=== PATIENT | male | born 1945 | race Caucasian/White ===

== ENCOUNTER 2023-06-27 23:30 | Inpatient (IN) | payer BC, SELFPAY ==
[2023-06-27 17:16] VITALS: BP 116/73
[2023-06-27] MEDS: TYLENOL 1000 MG PO (17:23)
[2023-06-27 17:39] LABS: % Basophils 0.6 % (0-2); % Immature Granulocytes 0.2 % (0-0.5); % Lymphocytes 9.5 % (20.5-51.1); % Neutrophils 77.7 % (42.2-75.2); Absolute Basophils 0.1 10^3/uL (0-0.2); Absolute Lymphocytes 0.8 10^3/uL (1.2-3.4); Absolute Monocytes 1.1 10^3/uL (0.1-0.6); Absolute Neutrophils 6.8 10^3/uL (1.4-6.5); Hematocrit 36.4 % (39.0-52.0); Hemoglobin 12.7 g/dL (13.0-18.0); Mean Corp Hgb Conc. 34.9 g/dL (33.0-37.0); Mean Corpuscular Hgb 32.3 pg (27.0-31.0); Mean Corpuscular Volume 92.6 fL (80.0-94.0); Mean Platelet Volume 9.7 fL (7.4-10.4); Nucleated Red Blood Cells % 0 % (-); Platelet Count 410 10^3/uL (130-400); Red Blood Cell Count 3.93 10^6/uL (4.70-6.10); Red Cell Dist. Width 11.7 % (11.5-14.5); White Blood Cell Count 8.8 10^3/uL (4.8-10.8)
[2023-06-27 17:50] LABS: Lactic Acid 0.8 mmol/L (0.7-2.0)
[2023-06-27 17:51] LABS: ALT (SGPT) 46 U/L (0-50); AST (SGOT) 32 U/L (17-59); Albumin 3.9 g/dl (3.5-5.0); Alkaline Phosphatase 179 U/L (38-126); Blood Urea Nitrogen 24 mg/dl (9-20); Calcium 8.9 mg/dl (8.4-10.2); Carbon Dioxide 28 mmol/L (22-30); Chloride 94 mmol/L (98-107); Glucose 113 mg/dl (70-99); Potassium 4.7 mmol/L (3.5-5.1); Sodium 129 mmol/L (135-145); Total Bilirubin 1.3 mg/dl (0.2-1.3); Total Protein 6.9 g/dl (6.3-8.2); eGFR > 60.00
[2023-06-27 17:52] LABS: COVID-19 Antigen Negative (Negative)
--- NOTE | 2023-06-27 18:46 | ED.GENMED ---
History of Present Illness
<Wendy Solano GEOPHYSICAL DRAFTER - Last Filed: 06/27/23 23:29>
General
Chief Complaint: Change in Mental Status
Source: patient
Exam Limitations: none
Time Seen by Provider: 06/27/23 18:45
Nursing documentation reviewed up to this point in time: agreed with
Travel History
Have you had any contact with someone who has COVID-19?: No
Do you have any symptoms of coronavirus? Fever > 100 degrees, chills, cough, shortness of breath, sore throat, loss of taste or smell, muscle aches, or headache?: No
History of Present Illness
History of Present Illness:
77 yo male evaluated here 06/13, 06/14 admitted 06/16-06/19 all for left side abdominal pain. Dx with enteritis, ileus from Influenza A and PNA. States the left side pain never went away and is getting worse. Febrile, decreased appetite, lost 8 lbs in
past 3 weeks, had a loose stool this a.m.
[place] in [place] yesterday, today went to work but couldn't stay due to pain. Saw PCP Dr. Gatica who sent him here for evaluation.
Past History
<Wendy Solano GEOPHYSICAL DRAFTER - Last Filed: 06/27/23 23:29>
Past History
ED Past Medical History: Other (Nursing Notes document diverticulosis and arthritis, the patient denies ever having diverticulosis. He states that he had a colonoscopy within the past few months which was normal.)
ED Past Surgical History: Orthopedic and Other (Intestinal resection for perforation. Colon resection with peritonitis 1997. Bowel Obstruction 09/2015)
Social History
Tobacco: Non-smoker
Alcohol: Occasional
Drug: None
Personal:
Living: with family
Employment: Retired
Family History
Family History: Other (Noncontributory)
Review of Systems
<Wendy Solano, GEOPHYSICAL DRAFTER - Last Filed: 06/27/23 23:29>
Review of Systems
Allergies reviewed?: Yes
All Other Systems: ROS reviewed and negative except as documented in HPI and ROS
Constitutional: Reports fever
Respiratory: Denies trouble breathing
Cardiac: Denies chest pain
ABD/GI: Reports abdominal pain and anorexia; Denies nausea, vomiting, diarrhea, constipated, bloody stools or black stools
: Denies dysuria, difficulty voiding or urgency
Musculoskeletal: Denies edema or back pain
Skin: Reports no symptoms
Neurological: Reports no symptoms
Phy Exam
<Wendy Solano, GEOPHYSICAL DRAFTER - Last Filed: 06/27/23 23:29>
Physical Exam
Physical Exam:
GENERAL: No acute distress. A&Ox3.
CONSTITUTIONAL: Temp 103.1
EYES: clear, conjunctivae normal
Neck: Supple
ENMT: moist mucus membranes, Pharynx nl
RESPIRATORY: Regular respirations, nonlabored, lungs clear.
CARDIOVASCULAR: Regular rate and rhythm, no murmurs, no rubs.
GI: Soft, tender left side abdomen, firm area to the left of umbilicus, normal BS
MUSCULOSKELETAL: Moves with ease. Well perfused. No edema
SKIN: Warm, dry, pink
PSYCH: Normal mood and affect. Well kept, interactive and appropriate
NEUROLOGIC: Awake, alert and oriented. No focal neurological deficits
Course
<Wendy Solano, GEOPHYSICAL DRAFTER - Last Filed: 06/27/23 23:29>
Orders/Labs/Results
Orders:
Orders
06/27/23 17:19
CR Chest - 2 Views Urgent
Comment:
Reason For Exam: fever
06/27/23 17:21
Acetaminophen [Tylenol] 1,000 mg PO NOW STA
06/27/23 17:28
COVID-19 Antigen Urgent
Source: Nasal Swab
Complete Blood Count/With Diff Urgent
Comprehensive Metabolic Panel Urgent
Lactic Acid Urgent
Blood Culture Urgent
KASEY Source: Blood/Venous
Specimen Description:
06/27/23 19:22
Iohexol [Omnipaque] See Protocol PO NOW STA
06/27/23 19:23
CT Abd/pel W Iv And Oral Contr Urgent
Comment:
Reason For Exam: persistent LLQ pain, fever
06/27/23 20:27
Urinalysis Reflex To Culture Urgent
Date Specimen was Collected: 06/27/23
Time Specimen was Collected: 20:18
Urine Microscopic Reflex Cult Urgent
Blood Culture Urgent
KASEY Source: Blood/Venous
Specimen Description:
Date Specimen was Collected: 06/27/23
Time Specimen was Collected: 20:18
Urine Culture Urgent
KASEY Source: U
Specimen Description:
Date Specimen was Collected: 06/27/23
Time Specimen was Collected: 20:18
06/27/23 21:25
STOOL [C difficile Antigen & Toxins] Urgent
KASEY Source: Feces/Stool
Specimen Description:
Stool Culture Urgent
KASEY Source: Feces/Stool
Specimen Description:
06/27/23 22:22
Piperacillin/Tazo 3.375 Gram [Zosyn] 3.375 gram in 50 ml IV NOW
06/27/23 22:25
IRAD CONSULT Urgent
Consulting Provider: Candelario Tubbs
Was physician already notified: Yes
Reason for consult: abscess drain
SURGICAL CONSULT Urgent
Consulting Provider: Mike Tyson
Was physician already notified: Yes
06/27/23 22:34
Calcium Carbonate Chewable [Tums] 1 tablet PO NOW STA
06/27/23 23:04
Admit/Transfer Patient As Directed
Co-Sign Provider:
Level of Care: Inpatient admission
Assign to:: Medical/Surgical
Physician / Group: leticia
Diagnosis: intrabdominal abscess
Reason for Hospitalization: intrabdominal abscess
Expected length of stay greater than two midnights?: Yes
ELOS- Estimated Length of Stay in days: 2
I certify the patient meets the requirements for IP care: Yes
06/27/23 23:05
Code Status As Directed
Resuscitation Status: Do not resuscitate
Reached after discussion with pt or family/Healthcare POA: Yes
DNR Bracelet Application ONCE
06/27/23 23:06
Pantoprazole [Protonix] 40 mg PO DAILY
06/27/23 23:07
0.9% Sodium Chloride 1000 ml [Nss] 1,000 ml IV BOLUS
06/27/23 23:09
HYDROmorphone [Dilaudid] 0.5 mg IV Q4HPRN PRN
06/27/23 23:10
Ondansetron Injectable [Zofran] 4 mg IV Q6HPRN PRN
06/27/23 23:14
Ondansetron Injectable [Zofran] 4 mg .ROUTE .STK-MED ONE
06/27/23 23:15
0.9% Sodium Chloride 1000 ml [Nss] 1,000 ml IV 100 mls/hr
Abnormal Lab Results
06/27/23 06/27/23
17:28 20:27
RBC 3.93 L 10^6/uL
(4.70-6.10)
Hgb 12.7 L g/dL
(13.0-18.0)
Hct 36.4 L %
(39.0-52.0)
MCH 32.3 H pg
(27.0-31.0)
Plt Count 410 H 10^3/uL
(130-400)
Absolute Neuts (auto) 6.8 H 10^3/uL
(1.4-6.5)
Absolute Lymphs (auto) 0.8 L 10^3/uL
(1.2-3.4)
Absolute Monos (auto) 1.1 H 10^3/uL
(0.1-0.6)
Neutrophils % 77.7 H %
(42.2-75.2)
Lymphocytes % 9.5 L %
(20.5-51.1)
Monocytes % 12.0 H %
(1.7-9.3)
Sodium 129 L mmol/L
(135-145)
Chloride 94 L mmol/L
(98-107)
BUN 24 H mg/dl
(9-20)
Glucose 113 H mg/dl
(70-99)
Alkaline Phosphatase 179 H U/L
(38-126)
Urine Ketones 2+ A
(Negative)
Leukocyte Esterase Rfl Trace A
(Negative)
Urine Bacteria (Reflex) Moderate A
(Negative)
Urine Albumin (Reflex) 1+ A
(Neg - Trace)
06/27/23 17:28
06/27/23 17:28
Vital Signs
Initial and Last Documented VS:
Initial Vital Signs
Temp Pulse Resp BP Pulse Ox
103.1 F H 102 20 116/73 95
06/27/23 17:16 06/27/23 17:16 06/27/23 17:16 06/27/23 17:16 06/27/23 17:16
Last Documented Vital Signs
Temp Pulse Resp BP Pulse Ox
98.7 F 83 27 115/52 93
06/27/23 22:27 06/27/23 19:15 06/27/23 19:15 06/27/23 19:05 06/27/23 19:05
Auto Body Repair Teacher consulted with Physician
Auto Body Repair Teacher consulted with physician?: Yes
Name of Physician Consulted: Teodoro
<Jasiel Valerio MD - Last Filed: 06/27/23 21:33>
Orders/Labs/Results
Orders:
Orders
06/27/23 17:19
CR Chest - 2 Views Urgent
Comment:
Reason For Exam: fever
06/27/23 17:21
Acetaminophen [Tylenol] 1,000 mg PO NOW STA
06/27/23 17:28
COVID-19 Antigen Urgent
Source: Nasal Swab
Complete Blood Count/With Diff Urgent
Comprehensive Metabolic Panel Urgent
Lactic Acid Urgent
Blood Culture Urgent
KASEY Source: Blood/Venous
Specimen Description:
06/27/23 19:22
Iohexol [Omnipaque] See Protocol PO NOW STA
06/27/23 19:23
CT Abd/pel W Iv And Oral Contr Urgent
Comment:
Reason For Exam: persistent LLQ pain, fever
06/27/23 20:27
Urinalysis Reflex To Culture Urgent
Date Specimen was Collected: 06/27/23
Time Specimen was Collected: 20:18
Urine Microscopic Reflex Cult Urgent
Blood Culture Urgent
KASEY Source: Blood/Venous
Specimen Description:
Date Specimen was Collected: 06/27/23
Time Specimen was Collected: 20:18
Urine Culture Urgent
KASEY Source: U
Specimen Description:
Date Specimen was Collected: 06/27/23
Time Specimen was Collected: 20:18
06/27/23 21:25
STOOL [C difficile Antigen & Toxins] Urgent
KASEY Source: Feces/Stool
Specimen Description:
Stool Culture Urgent
KASEY Source: Feces/Stool
Specimen Description:
06/27/23 22:22
Piperacillin/Tazo 3.375 Gram [Zosyn] 3.375 gram in 50 ml IV NOW
06/27/23 22:25
IRAD CONSULT Urgent
Consulting Provider: Candelario Tubbs
Was physician already notified: Yes
Reason for consult: abscess drain
SURGICAL CONSULT Urgent
Consulting Provider: Mike Tyson
Was physician already notified: Yes
06/27/23 22:34
Calcium Carbonate Chewable [Tums] 1 tablet PO NOW STA
06/27/23 23:04
Admit/Transfer Patient As Directed
Co-Sign Provider:
Level of Care: Inpatient admission
Assign to:: Medical/Surgical
Physician / Group: leticia
Diagnosis: intrabdominal abscess
Reason for Hospitalization: intrabdominal abscess
Expected length of stay greater than two midnights?: Yes
ELOS- Estimated Length of Stay in days: 2
I certify the patient meets the requirements for IP care: Yes
06/27/23 23:05
Code Status As Directed
Resuscitation Status: Do not resuscitate
Reached after discussion with pt or family/Healthcare POA: Yes
DNR Bracelet Application ONCE
06/27/23 23:06
Pantoprazole [Protonix] 40 mg PO DAILY
06/27/23 23:07
0.9% Sodium Chloride 1000 ml [Nss] 1,000 ml IV BOLUS
06/27/23 23:09
HYDROmorphone [Dilaudid] 0.5 mg IV Q4HPRN PRN
06/27/23 23:10
Ondansetron Injectable [Zofran] 4 mg IV Q6HPRN PRN
06/27/23 23:14
Ondansetron Injectable [Zofran] 4 mg .ROUTE .STK-MED ONE
06/27/23 23:15
0.9% Sodium Chloride 1000 ml [Nss] 1,000 ml IV 100 mls/hr
Abnormal Lab Results
06/27/23 06/27/23
17:28 20:27
RBC 3.93 L 10^6/uL
(4.70-6.10)
Hgb 12.7 L g/dL
(13.0-18.0)
Hct 36.4 L %
(39.0-52.0)
MCH 32.3 H pg
(27.0-31.0)
Plt Count 410 H 10^3/uL
(130-400)
Absolute Neuts (auto) 6.8 H 10^3/uL
(1.4-6.5)
Absolute Lymphs (auto) 0.8 L 10^3/uL
(1.2-3.4)
Absolute Monos (auto) 1.1 H 10^3/uL
(0.1-0.6)
Neutrophils % 77.7 H %
(42.2-75.2)
Lymphocytes % 9.5 L %
(20.5-51.1)
Monocytes % 12.0 H %
(1.7-9.3)
Sodium 129 L mmol/L
(135-145)
Chloride 94 L mmol/L
(98-107)
BUN 24 H mg/dl
(9-20)
Glucose 113 H mg/dl
(70-99)
Alkaline Phosphatase 179 H U/L
(38-126)
Urine Ketones 2+ A
(Negative)
Leukocyte Esterase Rfl Trace A
(Negative)
Urine Bacteria (Reflex) Moderate A
(Negative)
Urine Albumin (Reflex) 1+ A
(Neg - Trace)
06/27/23 17:28
06/27/23 17:28
Vital Signs
Initial and Last Documented VS:
Initial Vital Signs
Temp Pulse Resp BP Pulse Ox
103.1 F H 102 20 116/73 95
06/27/23 17:16 06/27/23 17:16 06/27/23 17:16 06/27/23 17:16 06/27/23 17:16
Last Documented Vital Signs
Temp Pulse Resp BP Pulse Ox
98.7 F 83 27 115/52 93
06/27/23 22:27 06/27/23 19:15 06/27/23 19:15 06/27/23 19:05 06/27/23 19:05
<Wendy Solano GEOPHYSICAL DRAFTER - Last Filed: 06/27/23 23:29>
MDM/Problems Addressed
Differential Diagnosis Includes:
mass, infectious colitis/enteritis
MDM/Problems Addressed:
77 yo male evaluated here 06/13, 06/14 admitted 06/16-06/19 all for left side abdominal pain. Dx with enteritis, ileus from Influenza A and PNA. States the left side pain never went away and is getting worse. Febrile, decreased appetite, lost 8 lbs in
past 3 weeks, had a loose stool this a.m.
Was in [place] yesterday, today went to work but couldn't stay due to pain. Saw PCP Dr. Gatica who sent him here for evaluation.
Temp 103.1 on arrival.
Pleasant, NAD
06/27/2023 1959 PM
CBC with no clinically significant abnormality
CMP: Sodium 129, chloride 94, BUN 24, mild elevated alk phos
Lactic within normal limit
06/27/[address] abdomen pelvis radiology report reviewed: IMPRESSION:
Complex rim enhancing collection containing fluid and gas in the anterior mid abdomen concerning for an intra-abdominal abscess. The exact etiology is uncertain, potentially secondary to an infectious/inflammatory enteritis or small contained
perforation. However, no enteric contrast material within the collection, and no free air elsewhere in the abdomen.
Dr. Valerio in to evaluate pt, arranged for IR and pt to be admitted
<Wendy Solano GEOPHYSICAL DRAFTER - Last Filed: 06/27/23 23:29>
*Critical Care Note
Total Time (30-74mins, 75-104mins- exclusive of procedures): Not Applicable
ED Attending Note
<Wendy Solano NP - Last Filed: 06/27/23 23:29>
-
Portions of this chart may have been created with voice recognition software.� Occasional wrong word or��sound alike� substitutions may have occurred due to the inherent limitations of voice recognition software.
<Jasiel Valerio MD - Last Filed: 06/27/23 21:33>
ED Attending Note
Patient seen and examined by attending physician: Yes
ED Attending Note:
I have seen and evaluated the patient with a [id number] encounter. I have spoken to the advance practicer provider and involved in the medical history, the physical exam, medical decision making.
Evaluation and management service: agree unless noted differently below.
Results interpretation: agree unless noted differently below.
Focused HPI: 77-year-old male with history as documented presents to the emergency room accompanied by his for evaluation of abdominal pain. This is the patient's fourth visit to the emergency room this month�initially presented with abdominal
pain and found to have influenza. CT on initial presentation showed findings consistent with an enteritis. Discharged home and returned next day with abdominal pain once again. CT was unchanged he was discharged. Returned 2 days later with
persistent pain also with continued cough and congestion. He was ultimately found to have pneumonia and was admitted for treatment of pneumonia. He had surgical consultation regarding his enteritis there was a question of potentially an early
bowel obstruction although no clear transition point on CT with contrast. Surgery felt pain related to enteritis or ileus from influenza. He was treated with Zosyn for his pneumonia he was ultimately discharged home. He returns today with
continued abdominal pain in the left lower quadrant. He said he had some diarrhea earlier today. No nausea or vomiting. He has a fever 103 �F today. No urinary symptoms. Cough and shortness of breath improved.
Physical exam: Awake and alert. Not in distress. Abdomen soft, moderately tender across the lower abdomen much worse on the left side with some voluntary guarding on the left. Normal active bowel sounds. Scar from prior abdominal surgery. His
lungs are clear to auscultation bilaterally. He has a regular rate and rhythm on cardiac auscultation with no rubs gallops or murmurs appreciated.
Medical Decision Making: Patient presents for the fourth time with complaint of abdominal pain. Pain has been persistent now for 2 weeks. Had some associated diarrhea today. Notably febrile here to 103 �F. Mildly tachycardic. Exam as above.
Labs sent off including a CBC which shows no leukocytosis. CMP shows mild hyponatremia but normal creatinine. Lactate is normal. His urinalysis equivocal fraction�he does have moderate bacteria but no pyuria, some squamous cells consistent with
some degree of contamination and with no urinary symptoms somewhat doubt this is the source of his fever and abdominal discomfort. Repeat CT abdomen pelvis with p.o. and IV contrast pending. Anticipate patient.
Discharge Plan
Departure
Patient Disposition: Admit
Date of Disposition: 06/27/23
Time of Disposition: 22:27
Admit to doctor: Johnson
Presentation/result/management discussed w/ accepting MD/DO: Hospitalist
Discharge Problem:
Intra-abdominal abscess
Prescriptions:
No Action
Flax Seed 1,200 MG Tab
1,200 mg PO DAILY
PreserVision AREDS 1 CAP capsule
1 cap PO BID
elderberry fruit and flower 1 EACH capsule
1 cap PO DAILY
atorvastatin 20 mg Tablet
20 mg PO DAILY
gabapentin 300 mg Capsule
300 mg PO TID
diphenhydramine-acetaminophen [Tylenol PM Extra Strength] 25-500 mg Tablet
2 tab PO DAILYPRN PRN (Reason: mild pain)
cholecalciferol (vitamin D3) 25 mcg (1,000 unit) Tablet
25 mcg PO DAILY
omega 6-odo-fde-fish oil [Fish Oil] 1,000 mg (120 mg-180 mg) Capsule
1 cap PO BID
ZzzQuil 50 mg/30 mL Liquid
50 mg PO HS
hydrocodone-acetaminophen 5-325 mg tablet
1 tab PO Q6H PRN (Reason: severe pain)
Patient Comments:
06/16/2023, pt. filled this medication on 06/15/2023 for 10 tablets according to PDMP.
benzonatate 100 mg Capsule
200 mg PO TIDPRN PRN (Reason: cough) Qty: 20 0RF
guaifenesin 600 mg tablet extended release 12hr
1,200 mg PO [id number] PRN (Reason: cough)
Referrals:
Reginald Gatica PA-C [Family Provider] -
Interventions
Interventions:
*Risk Screen - Suicide Last Done: 06/27/23 17:16
*General Assessment Last Done: 06/27/23 17:16
*Neglect/Abuse Screening Last Done: 06/27/23 17:16
ED- Neurological Assessment Last Done: 06/27/23 19:21
ED Swallowing Screen Last Done: 06/27/23 22:27
[2023-06-27 19:05] VITALS: BP 115/52
[2023-06-27] MEDS: OMNIPAQUE 50 ML PO (19:40)
[2023-06-27 20:00] VITALS: BP 119/62
[2023-06-27 20:34] LABS: Urine Albumin 1+ (Neg - Trace); Urine Bilirubin Negative (Negative); Urine Character Clear (Clear); Urine Color Yellow; Urine Glucose Negative (Negative); Urine Ketone 2+ (Negative); Urine Leukocyte Trace (Negative); Urine Nitrite Negative (Negative); Urine Occult Blood Negative (Negative); Urine Specific Gravity 1.015 (<1.030); Urine Urobilinogen 1+ (Neg - 1+)
[2023-06-27 20:46] LABS: Urine Bacteria Moderate (Negative); Urine Mucus Few; Urine Red Blood Cell 0-2 /HPF (0-2); Urine White Cell 0-2 /HPF (0-5)
[2023-06-27 21:00] VITALS: BP 128/62
[2023-06-27 22:04] VITALS: BP 144/71
--- NOTE | 2023-06-27 23:10 | HPS.HSE ---
Addendum entered and electronically signed by Laci Mann MD 06/27/23 23:15:
Patient had a prior history of bowel perforation status post bowel resection, with repeat surgery secondary to adhesions 2017.
Original Note:
Family Physician
-
Family Physician: Reginald Gatica PA-C
Chief Complaint
-
abdominal pain
History of Present Illness
77-year-old male past medical history of colon resection, hyperlipidemia, recent influenza, hyponatremia, presenting with worsening left-sided abdominal pain. He was recently admitted from 06/16 to 06/19 for left abdominal pain and was diagnosed with
enteritis/ileus secondary to influenza A. He was treated with Zosyn and followed by general surgery recommended conservative management. He was treated with Tamiflu for influenza.
Since discharge his left-sided abdominal pain has gotten worse. He has fevers and chills. Denies nausea or vomiting. He had 2 episodes of loose stools in the past day.
Patient drinks at least 1 glass of wine every night but he has not had any alcohol in 2 weeks. Denies smoking.
Medical History
Past Medical History
Past Medical History: Reports Other (colon resection, hyperlipidemia, recent influenza, hyponatremia)
Past Surgical History: Reports None
Social History
Tobacco: Non-smoker
Alcohol: Daily
Drug: None
Family History
Family History: Not pertinent
Allergies / Home Medications
Allergies reflects when Allergies were last updated in [employer].
Home Medications with original date entered in [employer]
Allergy/Medication List:
Allergies
Allergy/AdvReac Type Severity Reaction Status Date / Time
NSAIDS (Non-Steroidal Allergy Ulcer Verified 06/27/23 23:07
Anti-Inflamma
Home Medications
Flax Seed 1,200 mg PO DAILY 04/21/20
elderberry fruit 460 mg-elderberry flower 115 mg capsule 1 cap PO DAILY 03/27/21
vitamins A,C,N-vnry-fqtwrw 4,296 mcg-226 mg-90 mg capsule (PreserVision AREDS) 1 cap PO BID 03/27/21
atorvastatin 20 mg tablet 20 mg PO DAILY 02/06/23
gabapentin 300 mg capsule 300 mg PO TID 02/06/23
cholecalciferol (vitamin D3) 25 mcg (1,000 unit) tablet 25 mcg PO DAILY 06/16/23
diphenhydramine 25 mg-acetaminophen 500 mg tablet (Tylenol PM Extra Strength) 2 tab PO DAILYPRN PRN mild pain 06/16/23
diphenhydramine HCl 50 mg/30 mL oral liquid (ZzzQuil) 50 mg PO HS 06/16/23
hydrocodone 5 mg-acetaminophen 325 mg tablet 1 tab PO Q6H PRN severe pain 06/16/23
omega 6-pmb-enb-fish oil 1,000 mg (120 mg-180 mg) capsule (Fish Oil) 1 cap PO BID 06/16/23
benzonatate 100 mg capsule 200 mg PO TIDPRN PRN cough #20 caps 06/19/23
guaifenesin 600 mg tablet, extended release 12 hr 1,200 mg PO [id number] PRN cough 06/27/23
Review of Systems
-
History Source: Patient
A 12 point ROS was completed and negative except as noted: Yes
Constitutional: Reports No Symptoms
EENT: Reports No Symptoms
Respiratory: Reports No Symptoms
Cardiac: Reports No Symptoms
Abdomen/GI: Reports See HPI
: Reports No Symptoms
Musculoskeletal: Reports No Symptoms
Skin: Reports No Symptoms
Neurological: Reports No Symptoms
Endocrine: Reports No Symptoms
Hematologic/Lymphatic: Reports No Symptoms
Psych: Reports No Symptoms
Physical Exam
Vital Signs
Vital Signs
Temp Pulse Resp BP Pulse Ox
98.7 F 83 27 115/52 93
06/27/23 22:27 06/27/23 19:15 06/27/23 19:15 06/27/23 19:05 06/27/23 19:05
Physical Exam
General: Well Developed, Well Nourished and No Apparent Distress
HEENT: NormoCephalic, Moist mucous membranes and Atraumatic
Respiratory: Clear
Cardiac: S1/S2 and Regular Rhythm; No Murmur or Rub
GI: Soft, Normal Bowel Sounds, Tender (left lower quadrant tenderness ) and Distended; No Organomegaly
Rectal: Deferred by Provider
Musculoskeletal: No Clubbing, No Cyanosis and No Edema
Skin: No Rash
Neuro: Nonfocal/grossly intact
Laboratory Results
-
06/27/23 17:28
06/27/23 17:28
Laboratory Results
Lactic Acid 0.8 mmol/L (0.7-2.0) 06/27/23 17:28
Total Bilirubin 1.3 mg/dl (0.2-1.3) 06/27/23 17:28
AST 32 U/L (17-59) 06/27/23 17:28
ALT 46 U/L (0-50) 06/27/23 17:28
Alkaline Phosphatase 179 U/L (38-126) H 06/27/23 17:28
Data Reviewed
-
Lab Data: Labs Reviewed by me
Old Records: Reviewed
Impression/Plan
-
IMPRESSION:
PLAN:
# Sepsis (fever, tachypnea) secondary to intra-abdominal abscess associated with enteritis/small contained perforation
-CT abdomen pelvis shows complex rim-enhancing collection containing fluid and gas in anterior mid abdomen concerning for intra-abdominal abscess possibly associated with infectious/inflammatory enteritis or small contained perforation
-N.p.o.
-Check blood cultures
-IV fluids
-Zosyn
-IR/general surgery consulted for drainage
-Patient requesting antacid, start Protonix
-Dilaudid for pain, Zofran for nausea as needed
# Mild hyponatremia
-Monitor with IV fluid
Recent influenza infection
-Symptoms resolved
History of colon resection
Hyperlipidemia
-Continue statin
DNR/DNI
DVT prophylaxis�SCDs
N.p.o.
[2023-06-27] MEDS: ZOSYN 50 IV (23:19)
[2023-06-27] MEDS: TUMS 1 TABLET PO (23:19)
[2023-06-27] MEDS: ZOFRAN 4 MG IV (23:20)
[2023-06-27] MEDS: NSS 1000 IV (23:22)
[2023-06-28] VITALS (8 sets, daily range): BP systolic 80–123; BP diastolic 49–67; BMI 24.4
[2023-06-28] MEDS: NSS 1000 IV ×2 (02:25→14:27)
[2023-06-28] MEDS: PROTONIX PO (02:32)
[2023-06-28 06:45] LABS: % Basophils 0.3 % (0-2); % Eosinophils 0.1 % (0-6); % Immature Granulocytes 0.4 % (0-0.5); % Lymphocytes 11.2 % (20.5-51.1); % Monocytes 13.8 % (1.7-9.3); % Neutrophils 74.2 % (42.2-75.2); Absolute Lymphocytes 0.9 10^3/uL (1.2-3.4); Absolute Monocytes 1.1 10^3/uL (0.1-0.6); Absolute Neutrophils 5.7 10^3/uL (1.4-6.5); Hematocrit 35.3 % (39.0-52.0); Hemoglobin 12.1 g/dL (13.0-18.0); Mean Corp Hgb Conc. 34.3 g/dL (33.0-37.0); Mean Corpuscular Hgb 32.4 pg (27.0-31.0); Mean Corpuscular Volume 94.4 fL (80.0-94.0); Mean Platelet Volume 10.1 fL (7.4-10.4); Nucleated Red Blood Cells % 0 % (-); Platelet Count 340 10^3/uL (130-400); Red Blood Cell Count 3.74 10^6/uL (4.70-6.10); Red Cell Dist. Width 11.7 % (11.5-14.5); White Blood Cell Count 7.7 10^3/uL (4.8-10.8)
[2023-06-28 07:05] LABS: ALT (SGPT) 34 U/L (0-50); AST (SGOT) 25 U/L (17-59); Albumin 3.1 g/dl (3.5-5.0); Alkaline Phosphatase 129 U/L (38-126); Blood Urea Nitrogen 19 mg/dl (9-20); Calcium 8.4 mg/dl (8.4-10.2); Carbon Dioxide 27 mmol/L (22-30); Chloride 96 mmol/L (98-107); Estimated Creatinine Clearance 105 ml/min; Glucose 107 mg/dl (70-99); Potassium 4.4 mmol/L (3.5-5.1); Sodium 133 mmol/L (135-145); Total Bilirubin 1.2 mg/dl (0.2-1.3); Total Protein 5.6 g/dl (6.3-8.2); eGFR > 60.00
[2023-06-28] MEDS: LIPITOR 20 MG PO (07:18)
[2023-06-28] MEDS: VITAMIN D3 (cholecalciferol) 25 MCG PO (07:18)
[2023-06-28] MEDS: PROTONIX 40 MG PO (07:18)
[2023-06-28] MEDS: NEURONTIN 300 MG PO (07:18)
[2023-06-28] MEDS: DILAUDID 0.5 MG IV ×2 (07:18→19:53)
--- NOTE | 2023-06-28 07:51 | CON.GS ---
Medical History
-
Chief Complaint: Abdominal pain
History of Present Illness:
Patient is a 77 yo M With a PMH of HLD, neuropathy, arthritis, BPH s/p TURP, s/p ex lap with SBR in 1996 at [facility] (previous reports of peptic ulcer), and ex lap with MALKA in [address] Lynn. Mr. Lea states that he initially had
chest congestion and a URI with malaise and mild muscle aches dating back to 06/07/2023. He was in [place] visiting his daughter at that time. Upon returning he states that he was beginning to feel improved, however, he subsequently developed colicky
abdominal pain prompting multiple visits to and his PCP. He has been in and out of the hospital and ER now totaling 4 times. He was recently admitted to from 06/16 to 06/19 for management of enteritis and a possible SBO. He had improvement of
his pain and ROBF with dietary advancement. He re-presents with worsening abdominal pain and fevers. He reports loose nonbloody stools. Single episode of nausea and vomiting overnight.
Past Medical History
Past Medical History: Hypercholesterolemia and Other (BPH)
Past Surgical History: Bowel Resection (Ex lap with SBR in 1996, ex lap with lysis of adhesions in [address] Lynn) and Urological (TURP)
Social History
Tobacco: Non-Smoker
Alcohol: Occasional
Drug: None
Personal:
Living: With Family
Employment: Retired
Family History
Family History: Reviewed & Noncontributory
Allergies / Home Medications
Allergy/AdvReac Type Severity Reaction Status Date / Time
NSAIDS (Non-Steroidal Allergy Ulcer Verified 06/27/23 23:07
Anti-Inflamma
Medication Instructions Recorded Confirmed Type
Flax Seed 1,200 mg PO DAILY 04/21/20 06/27/23 History
elderberry fruit 460 mg-elderberry 1 cap PO DAILY 03/27/21 06/27/23 History
flower 115 mg capsule
vitamins A,C,B-rgxp-ptqbug 4,296 1 cap PO BID 03/27/21 06/27/23 History
mcg-226 mg-90 mg capsule
(PreserVision AREDS)
atorvastatin 20 mg tablet 20 mg PO DAILY 02/06/23 06/27/23 History
gabapentin 300 mg capsule 300 mg PO TID 02/06/23 06/27/23 History
cholecalciferol (vitamin D3) 25 25 mcg PO DAILY 06/16/23 06/27/23 History
mcg (1,000 unit) tablet
diphenhydramine 25 2 tab PO DAILYPRN PRN mild pain 06/16/23 06/27/23 History
mg-acetaminophen 500 mg tablet
(Tylenol PM Extra Strength)
diphenhydramine HCl 50 mg/30 mL 50 mg PO HS 06/16/23 06/27/23 History
oral liquid (ZzzQuil)
hydrocodone 5 mg-acetaminophen 325 1 tab PO Q6H PRN severe pain 06/16/23 06/27/23 History
mg tablet
omega 5-dia-lrn-fish oil 1,000 mg 1 cap PO BID 06/16/23 06/27/23 History
(120 mg-180 mg) capsule (Fish Oil)
benzonatate 100 mg capsule 200 mg PO TIDPRN PRN cough #20 caps 06/19/23 06/27/23 Rx
guaifenesin 600 mg tablet, 1,200 mg PO [id number] PRN cough 06/27/23 06/27/23 History
extended release 12 hr
Review of Systems
-
A 10 point review of systems was completed, and was negative except as per HPI.
Physical Exam
Vital Signs
Temp Pulse Resp BP Pulse Ox
99.1 F 92 18 117/67 95
06/28/23 07:31 06/27/23 22:35 06/27/23 22:35 06/28/23 07:24 06/28/23 07:27
06/27/23 06/28/2324
06:59 06:59 06:59
Actual Weight 77 kg
Body Mass Index (BMI) 24.4
Lab Results
06/28/23 06:26
06/28/23 06:26
WBC 7.7 10^3/uL (4.8-10.8) 06/28/23 06:26
Hgb 12.1 g/dL (13.0-18.0) L 06/28/23:
Hct 35.3 % (39.0-52.0) L 06/28/23:26
Plt Count 340 10^3/uL (130-400) 06/28/23:
Abs Immat Gran (auto) 0.0 10^3/uL (0-0.05) 06/28/23 06:26
Neutrophils % 74.2 % (42.2-75.2) 06/28/23 06:26
Physical Exam
General: Well Developed, Well Nourished, Pain and Fever
HEENT: Normocephalic and Anicteric
Respiratory: Non Labored Respirations
Cardiac: Regular Rhythm
GI: Soft, Tender (LEFT central abdomen, palpable firmness), Distended, Incisions (Well healed midline) and Other (Non-peritoneal)
Musculoskeletal: No Edema
Skin: Warm and Dry
Neuro: Nonfocal/Grossly Intact
Data Reviewed
-
Radiology: Image Personally Visualized and interpreted and Report Reviewed by me
CT Scan: Image Personally Visualized and interpreted and Report Reviewed by me
Labs: Labs Reviewed by me
Old Records: Reviewed
Assessment / Plan
-
Patient is a 77 yo M p/w intra-abdominal abscess likely secondary to a contained perforation and leak from the small bowel
Interesting and more chronic presentation. Possibly related to a Meckel's or small bowel diverticulum, less likely obstructive or ischemic. At this point in time would have to assume that this process has been going on for 2 to 3 weeks, though
interesting that his prior CT scan back on 06/14 did not demonstrate much if any of a leak at that time. His current CT demonstrates a well-contained and matured 7 x 6 x 5 cm abscess. Adjacent bowel loops are likely to be matted to this abscess
cavity, and impossible to determine the degree of adhesive disease related to his prior surgeries. Options for management at this time include medical management with IV antibiotics and an attempt at percutaneous drainage versus upfront surgical
exploration. IR drainage may lead to development of a fistula with the potential need for TPN and delayed surgical intervention. Upfront surgical intervention may result in enterotomies or the need for a more lengthy small bowel resection. No
easy or correct answer. The pros and cons of both options was considered and discussed. Recommend and plan for an initial attempt at IR drainage.
-- IR drainage of intra-abdominal abscess
-- Abx: Zosyn
-- Pain control: Tylneol and IV Dilaudid
-- NPO, IVF
Will call and discuss above with .
[2023-06-28] MEDS: OCUVITE SOFTGEL 1 CAP PO (09:59)
[2023-06-28] MEDS: ZOSYN 50 IV ×3 (09:59→21:10)
[2023-06-28 10:35] LABS: INR 1.22; PT 15.7 Sec (11.4-14.6)
[2023-06-28] MEDS: OMNIPAQUE 50 ML PO (11:05)
[2023-06-28] MEDS: TYLENOL 650 MG PO ×2 (13:05)
--- NOTE | 2023-06-28 13:43 | W.PN.UPDATE ---
Update Note
Progress Note Update
CT guided abscess drain placed, yielding 50 cc of purulent fluid. Ongoing leakage/fistula from adjacent small bowel suspected, as there was oral contrast in the collection.
Fluid sent for C+S.
--- NOTE | 2023-06-28 13:49 | W.PN.HOSP.TC ---
Today's Communication/Plan
-
Zosyn ordered
f/u on culture
npo
ivf
pain control
Assessment / Plan
Assessment / Plan
# Sepsis (fever, tachypnea) secondary to intra-abdominal abscess associated with enteritis/small contained perforation
-CT abdomen pelvis shows complex rim-enhancing collection containing fluid and gas in anterior mid abdomen concerning for intra-abdominal abscess possibly associated with infectious/inflammatory enteritis or small contained perforation
-N.p.o. Diet per GS.
-Check blood cultures in lab.
-IV fluids
-Zosyn ordered
-IR/general surgery consulted for drainage
-Patient requesting antacid, start Protonix
-Dilaudid for pain, Zofran for nausea as needed
-s/p IRAD drainage with drain placement. 50cc of purulent fluid sent. await C&S.
# Mild hyponatremia
-Monitor with IV fluid
Recent influenza infection
-Symptoms resolved
History of colon resection
Hyperlipidemia
-hold statin
DNR/DNI
DVT prophylaxis�SCDs
Anticipated Discharge: > 48 hours
Subjective/Interval History
-
Date of Service: June 28, 2023
states of abd soreness
Objective Data
-
Labs:
Laboratory Results
06/28/23 06/28/23
06:26 10:12
WBC 7.7
Hgb 12.1 L
Hct 35.3 L
Plt Count 340
PT 15.7 H
INR 1.22
Sodium 133 L
Potassium 4.4
Chloride 96 L
Carbon Dioxide 27
BUN 19
Creatinine 0.6 L
Glucose 107 H
Calcium 8.4
Total Bilirubin 1.2
AST 25
ALT 34
Alkaline Phosphatase 129 H
Vital Signs:
Vital Signs
Temp Pulse Resp BP Pulse Ox
100.8 F H 87 16 123/55 97
06/28/23 12:45 06/28/23 12:45 06/28/23 12:45 06/28/23 12:45 06/28/23 12:45
I&O
06/27/23 06/28/23 06/29/23
06:59 06:59 06:59
Intake Total 500 / 500
Output Total 400 / 400
Balance 100 / 100
Physical Exam
-
General: Well Developed, Well Nourished and No Apparent Distress
HEENT: Normocephalic and Atraumatic
Respiratory: Clear to Auscultation; Negative Wheezes or Rales
Cardiac: Regular Rhythm and S1/S2
GI: Soft, Normal Bowel Sounds and Tender
Genito-urinary: No Costovertebral Tender
Musculoskeletal: No Edema
Neuro: Awake, Alert, Oriented and AO x 3
Psych: Calm
--- NOTE | 2023-06-28 17:53 | PTCARENOTE ---
pt. received from ED at 1600. Pt. was a stand and pivot from the stretcher. Pt. oriented to unit and nursing assessment complete. Safe environment maintained
[2023-06-28] MEDS: TYLENOL/FEVERALL 650 MG RECTAL (21:18)
[2023-06-29 00:10] VITALS: BP 117/53
[2023-06-29] MEDS: DILAUDID 0.5 MG IV ×4 (01:22→22:46)
[2023-06-29] MEDS: NSS 1000 IV ×2 (02:26→16:47)
[2023-06-29] MEDS: ZOSYN 50 IV ×4 (03:30→22:02)
[2023-06-29 06:34] LABS: % Basophils 0.7 % (0-2); % Eosinophils 1.2 % (0-6); % Immature Granulocytes 0.2 % (0-0.5); % Lymphocytes 25.7 % (20.5-51.1); % Monocytes 19.8 % (1.7-9.3); % Neutrophils 52.4 % (42.2-75.2); Absolute Eosinophils 0.1 10^3/uL (0-0.7); Absolute Monocytes 0.8 10^3/uL (0.1-0.6); Absolute Neutrophils 2.1 10^3/uL (1.4-6.5); Hematocrit 29.5 % (39.0-52.0); Hemoglobin 10.2 g/dL (13.0-18.0); Mean Corp Hgb Conc. 34.6 g/dL (33.0-37.0); Mean Corpuscular Hgb 32.3 pg (27.0-31.0); Mean Corpuscular Volume 93.4 fL (80.0-94.0); Mean Platelet Volume 10.2 fL (7.4-10.4); Nucleated Red Blood Cells % 0 % (-); Platelet Count 293 10^3/uL (130-400); Red Blood Cell Count 3.16 10^6/uL (4.70-6.10); Red Cell Dist. Width 11.9 % (11.5-14.5); White Blood Cell Count 4.1 10^3/uL (4.8-10.8)
[2023-06-29 06:55] LABS: Blood Urea Nitrogen 14 mg/dl (9-20); Calcium 7.9 mg/dl (8.4-10.2); Carbon Dioxide 26 mmol/L (22-30); Chloride 98 mmol/L (98-107); Estimated Creatinine Clearance 90 ml/min; Glucose 97 mg/dl (70-99); Potassium 4.1 mmol/L (3.5-5.1); Sodium 133 mmol/L (135-145); eGFR > 60.00
[2023-06-29 07:00] VITALS: BP 114/59
[2023-06-29] MEDS: NSS (PRESERVATIVE FREE) 10 ML IV (08:47)
[2023-06-29] MEDS: PROTONIX IV 40 MG IV (08:48)
--- NOTE | 2023-06-29 12:16 | W.PN.HOSP.TC ---
Today's Communication/Plan
-
GS recs
npo
IVF
ID eval
cont abx
Assessment / Plan
Assessment / Plan
# Sepsis (fever, tachypnea) secondary to intra-abdominal abscess associated with enteritis/small contained perforation
-CT abdomen pelvis shows complex rim-enhancing collection containing fluid and gas in anterior mid abdomen concerning for intra-abdominal abscess possibly associated with infectious/inflammatory enteritis or small contained perforation
-N.p.o. Diet per GS.
-Blood cultures negative for growth so far.
-IV fluids
-Zosyn ordered
-IR/general surgery consulted for drainage
-Pstart Protonix
-Dilaudid for pain, Zofran for nausea as needed
-Fluid cultures from IR drainage with polymicrobial growth
-s/p IRAD drainage with drain placement. 50cc of purulent fluid sent.
-Will ask ID for input
# Mild hyponatremia
-Monitor with IV fluid
Recent influenza infection
-Symptoms resolved
History of colon resection
Hyperlipidemia
-hold statin
DNR/DNI
DVT prophylaxis�SCDs
d/w with sister over the phone in details.
Anticipated Discharge: > 48 hours
Subjective/Interval History
-
Date of Service: June 29, 2023
states of abd pain and discomfort
Objective Data
-
Labs:
Laboratory Results
06/29/23
05:56
WBC 4.1 L
Hgb 10.2 L
Hct 29.5 L
Plt Count 293
Sodium 133 L
Potassium 4.1
Chloride 98
Carbon Dioxide 26
BUN 14
Creatinine 0.7
Glucose 97
Calcium 7.9 L
Vital Signs:
Vital Signs
Temp Pulse Resp BP Pulse Ox
98.0 F 66 18 114/59 97
06/29/23 07:00 06/29/23 07:00 06/29/23 07:00 06/29/23 07:00 06/29/23 07:00
I&O
06/28/23 06/29/23 06/30/23
06:59 06:59 06:59
Intake Total 550 / 550
Output Total 960 / 960 250 / 250
Balance -410 / -410 -250 / -250
Physical Exam
-
General: Well Developed, Well Nourished and No Apparent Distress
HEENT: Normocephalic and Atraumatic
Respiratory: Clear to Auscultation; Negative Wheezes or Rales
Cardiac: Regular Rhythm and S1/S2
GI: Soft, Normal Bowel Sounds, Tender and Other (KEATON drain with biliary and pustule noted )
Genito-urinary: No Costovertebral Tender
Musculoskeletal: No Edema
Neuro: Awake, Alert, Oriented and AO x 3
Psych: Calm
Data Reviewed
-
Total Time Spent with Patient (in minutes): 53
--- NOTE | 2023-06-29 13:13 | W.PN.GS2 ---
Today's Communication / Plan
-
Check prealbumin
Monitor drain output
NPO/IVF for now
Assessment / Plan
-
77M with small bowel perforation of undetermined chronicity/etiology and associated contained intra-abdominal fluid collection now PPD1 s/p IR drainage with enteric contents in the drain
Fevers improving, nontoxic
No leukocytosis
260cc drain output since placement <24 hrs ago
Discussed fistula mgmt with the patient in some detail. Unclear etiology, though perforated diverticulum (Meckel's or other) was suggested as a possible cause. Plan for medical optimization with quantification of drain output and stratification into
high/low output sb EC fistula. This stratification will guide further mgmt which will typically either be limited to monitoring, abx, nutritional optimization or may ultimately require surgical intervention. In the meantime will obtain baseline
nutritional lab (prealbumin). Defer transferrin as this is a send-out that typically does not provide a result quickly enough to inform treatment.
Depending on volume of drain output, may benefit from a period of NPO/TPN to promote improved nutrition without increasing the volume of flow across the fistula. Will allow an additional 24 hrs to monitor output and stratify the fistula now that
initial decompression should be more or less complete.
Subjective Data
-
Date of Service: June 29, 2023
Fever curve improving, 100.8F Tmax / past 24 hrs; otherwise VSS, c/o pain adequately managed with IV meds, denies n/v
Objective Data
-
Intake and Output
06/28/23 06/29/23 06/30/23
06:59 06:59 06:59
Intake Total 550 / 550
Output Total 960 / 960 250 / 250
Balance -410 / -410 -250 / -250
Intake:
IV fluids (Total) 500 / 500
IV piggybacks 50 / 50
Output:
Drain Output (Total) 260 / 260
Jaswinder-Jovel 200 / 200
Left Abdomen Placed in IR 60 / 60
Urine, Voided 700 / 700 250 / 250
Other:
Number of approximated MODERATE 1
amounts of urine
Vital Signs
Temp Pulse Resp BP Pulse Ox
98.0 F 66 18 114/59 97
06/29/23 07:00 06/29/23 07:00 06/29/23 07:00 06/29/23 07:00 06/29/23 07:00
Lab Results
06/29/23 05:56
06/29/23 05:56
Calcium 7.9 mg/dl (8.4-10.2) L 06/29/23 05:56
Total Bilirubin 1.2 mg/dl (0.2-1.3) 06/28/23 06:26
AST 25 U/L (17-59) 06/28/23 06:26
ALT 34 U/L (0-50) 06/28/23 06:26
Alkaline Phosphatase 129 U/L (38-126) H 06/28/23 06:26
Total Protein 5.6 g/dl (6.3-8.2) L 06/28/23 06:26
Albumin 3.1 g/dl (3.5-5.0) L 06/28/23 06:26
Physical Exam
-
Gen: NAD
Abd: soft, ttp to midabdomen, drain with thin bilious contents (expected)
[2023-06-29 14:39] LABS: Prealbumin (Transthyretin) 5.5 mg/dl (17.6-36.0)
[2023-06-29 15:00] VITALS: BP 129/65
--- NOTE | 2023-06-29 16:31 | CM ---
Chart reviewed. Spoke with pt at bedside
pt reports lives alone in multi story home
Describes self as independent
Has a chair lift- had for now
Denies past snf/home health
PCP - [facility]
Pharm - [facility], [place]
CM will follow for d/c needs
Plan - home - needs to be determined
[2023-06-29] MEDS: NSS IV (19:42)
[2023-06-29] MEDS: TYLENOL/FEVERALL 650 MG RECTAL (22:31)
[2023-06-29 23:49] VITALS: BP 137/64
[2023-06-30] MEDS: NSS 1000 IV ×3 (01:02→19:27)
[2023-06-30] MEDS: ZOSYN 50 IV ×2 (04:10→10:08)
--- NOTE | 2023-06-30 04:27 | PTCARENOTE ---
MARLEN Cortes made aware of critical blood culture via [facility]
[2023-06-30 06:23] LABS: % Basophils 0.8 % (0-2); % Eosinophils 1.6 % (0-6); % Immature Granulocytes 0.3 % (0-0.5); % Lymphocytes 26.9 % (20.5-51.1); % Monocytes 15.4 % (1.7-9.3); Absolute Eosinophils 0.1 10^3/uL (0-0.7); Absolute Monocytes 0.6 10^3/uL (0.1-0.6); Absolute Neutrophils 2.1 10^3/uL (1.4-6.5); Hematocrit 33.2 % (39.0-52.0); Hemoglobin 11.4 g/dL (13.0-18.0); Mean Corp Hgb Conc. 34.3 g/dL (33.0-37.0); Mean Corpuscular Hgb 31.8 pg (27.0-31.0); Mean Corpuscular Volume 92.5 fL (80.0-94.0); Mean Platelet Volume 9.9 fL (7.4-10.4); Nucleated Red Blood Cells % 0 % (-); Platelet Count 345 10^3/uL (130-400); Red Blood Cell Count 3.59 10^6/uL (4.70-6.10); Red Cell Dist. Width 11.7 % (11.5-14.5); White Blood Cell Count 3.8 10^3/uL (4.8-10.8)
[2023-06-30 06:47] LABS: Blood Urea Nitrogen 7 mg/dl (9-20); Calcium 8.3 mg/dl (8.4-10.2); Carbon Dioxide 22 mmol/L (22-30); Chloride 104 mmol/L (98-107); Estimated Creatinine Clearance 105 ml/min; Glucose 76 mg/dl (70-99); Potassium 4.2 mmol/L (3.5-5.1); Sodium 135 mmol/L (135-145); eGFR > 60.00
[2023-06-30 07:00] VITALS: BP 135/69
[2023-06-30] MEDS: PROTONIX IV 40 MG IV (07:36)
[2023-06-30] MEDS: NSS (PRESERVATIVE FREE) 10 ML IV (07:36)
--- NOTE | 2023-06-30 11:03 | W.PN.HOSP.TC ---
Today's Communication/Plan
-
TPN per GS
ID eval
IVF
IV abx
Assessment / Plan
Assessment / Plan
# Sepsis (fever, tachypnea) secondary to intra-abdominal abscess associated with enteritis/small contained perforation with EC fistula
#GPC bacteremia 2/2 above
-CT abdomen pelvis shows complex rim-enhancing collection containing fluid and gas in anterior mid abdomen concerning for intra-abdominal abscess possibly associated with infectious/inflammatory enteritis or small contained perforation
-N.p.o. Diet per GS.
-Blood cultures negative for growth so far.
-IV fluids
-Zosyn ordered
-start Protonix
-KEATON drain 165cc
-Dilaudid for pain, Zofran for nausea as needed
-Fluid cultures from IR drainage with polymicrobial growth
-s/p IRAD drainage with drain placement. 50cc of purulent fluid sent.
-Will ask ID for input
# Mild hyponatremia
-Monitor with IV fluid
Recent influenza infection
-Symptoms resolved
History of colon resection
Hyperlipidemia
-hold statin
DNR/DNI
DVT prophylaxis�SCDs
Anticipated Discharge: > 48 hours
Subjective/Interval History
-
Date of Service: June 30, 2023
denies severe abd pain or nausea
Objective Data
-
Labs:
Laboratory Results
06/30/23
05:59
WBC 3.8 L
Hgb 11.4 L
Hct 33.2 L
Plt Count 345
Sodium 135
Potassium 4.2
Chloride 104
Carbon Dioxide 22
BUN 7 L
Creatinine 0.6 L
Glucose 76
Calcium 8.3 L
Vital Signs:
Vital Signs
Temp Pulse Resp BP Pulse Ox
97.6 F 74 16 135/69 95
06/30/23 07:00 06/30/23 07:00 06/30/23 07:00 06/30/23 07:00 06/30/23 07:00
I&O
06/29/23 06/30/23 07/01/23
06:59 06:59 06:59
Intake Total 550 / 550 1700 / 1700
Output Total 960 / 960 1914
Balance -410 / -410 -215 / -215
Physical Exam
-
General: Well Developed, Well Nourished and No Apparent Distress
HEENT: Normocephalic and Atraumatic
Respiratory: Clear to Auscultation; Negative Wheezes or Rales
Cardiac: Regular Rhythm and S1/S2
GI: Soft, Nondistended, Normal Bowel Sounds, Tender and Other (KEATON drain with biliary output )
Genito-urinary: No Costovertebral Tender
Musculoskeletal: No Edema
Neuro: Awake, Alert, Oriented and AO x 3
Psych: Calm
[2023-06-30] MEDS: DILAUDID 0.5 MG IV ×2 (11:22→19:28)
--- NOTE | 2023-06-30 11:57 | CON.ID ---
Consultation
-
Date/Time Consultation Requested: 06/29/2023 1214
Date/Time Consultation Performed: 06/30/2023 1135
Requesting Provider: Dr. Gibbs
Performing Provider: Dr. Sinha
Reason for Consultation: Abdominal abscess.
Chief Complaint / Past History
History of Present Illness
Ramon Lae is a 77-year-old man being evaluated at the request of Dr. Gibbs in regards to an abdominal abscess. History is obtained from chart review, along with patient interview. The patient reports that on 06/07/2022 he flew out to [place]
to visit his daughter and family. While there, he came down with influenza, as did several other family members. He came back to the [place] area on 06/12 and recalls that on 06/13 he developed some stabbing discomfort in the abdomen.
Thereafter he presented to the emergency room for further evaluation. He underwent CAT scanning of the abdomen, and there were findings of nonspecific enteritis or ileitis. He was discharged to home, only to return the next day secondary to
ongoing abdominal pain. He underwent an additional CAT scan, again with no specific findings. He presented back on 06/16 and was admitted until 06/19 with a diagnosis of ileus. Following discharge he had ongoing abdominal discomfort and ultimately
presents back to the hospital on 06/27 secondary to the abdominal pain. He also admitted to approximately 8 pound weight loss over the prior 3 weeks. In the emergency room he was found to be [address] scanning was again repeated and this
time he was found to have an abdominal abscess. He underwent IR drainage for several hundred cc's of fluid, and cultures are now growing E. coli and viridans strep. Additionally, blood cultures obtained at the time of admission are growing strep
anginosus. Infectious Diseases is asked to manage further antibiotic therapy.
At this time he denies any fevers or chills. He notes no abdominal discomfort at rest, but has some discomfort with palpation.
Past History
Past Medical History: None
Additional Past Surgical History:
Small bowel resection
Hip replacement
Allergy History:
NSAIDS (Non-Steroidal Anti-Inflamma Allergy (Verified 06/27/23 23:07)
Ulcer
Medications Reviewed: Yes
Current Antibiotics:
Zosyn 3.375 g IV every 6 hours
Social History
Tobacco: Non-Smoker
Alcohol: None
Drug: None
Personal: Partner
Living: With Family
Employment: Employed
Family History
Family History: Not Pertinent
Review of Systems
Vital Signs
Temp Pulse Resp BP Pulse Ox
97.6 F 74 16 135/69 95
06/30/23 07:00 06/30/23 07:00 06/30/23 07:00 06/30/23 07:00 06/30/23 07:00
Physical Exam
Physical Exam
Constitutional: No Acute Distress, Comfortable and Non-toxic
Head: Normocephalic
Eyes: Pupils Equal, Pupils Round, No Conjunctival Hemorrhage and Sclera Anicteric
Oral: No Thrush and No Ulcers
Cardiovascular: Regular Rate and S1/S2; Negative S3/S4
Pulmonary: Clear; Negative Wheezes, Rales or Rhonchi
Gastrointestinal: Soft, Tender, Non Distended, Normal Bowel Sounds and Other (KEATON in place with brownish drainage.)
Genito-Urinary: Negative Graham
Extremities: Negative Edema, Cyanosis or Erythema
Skin: Warm and Dry; Negative Rash or Jaundice
Neurological: Awake and Alert
Psychological: Calm
.
Lab / Diagnostic Study Results
06/30/23 05:59
06/30/23 05:59
Abs Immat Gran (auto) 0.0 10^3/uL (0-0.05) 06/30/23 05:59
Absolute Neuts (auto) 2.1 10^3/uL (1.4-6.5) 06/30/23 05:59
Absolute Lymphs (auto) 1.0 10^3/uL (1.2-3.4) L 06/30/23 05:59
Absolute Monos (auto) 0.6 10^3/uL (0.1-0.6) 06/30/23 05:59
Absolute Basos (auto) 0.0 10^3/uL (0-0.2) 06/30/23 05:59
Immature Gran % 0.3 % (0-0.5) 06/30/23 05:59
Neutrophils % 55.0 % (42.2-75.2) 06/30/23 05:59
Lymphocytes % 26.9 % (20.5-51.1) 06/30/23 05:59
Monocytes % 15.4 % (1.7-9.3) H 06/30/23 05:59
Eosinophils % 1.6 % (0-6) 06/30/23 05:59
Basophils % 0.8 % (0-2) 06/30/23 05:59
PT 15.7 Sec (11.4-14.6) H 06/28/23 10:12
INR 1.22 06/28/23 10:12
Lactic Acid 0.8 mmol/L (0.7-2.0) 06/27/23 17:28
Ur Squamous Epith Cells 3-5 /LPF (Few) 06/27/23 20:27
Microbiology Results
Micro:
06/28/23 18:14 Salmonella/Shigella Culture - Final
Feces/Stool No Salmonella, Shigella, Aeromonas or Plesiomonas species
isolated.
Campylobacter Culture - Final
No Campylobacter species isolated.
Shiga Toxin Test - Final
No E. coli Shiga Toxin 1 or 2 detected.
06/27/23 20:27 Blood Culture - Preliminary
Blood/Venous Streptococcus anginosus
Gram Stain - Preliminary
06/28/23 13:30 Wound Culture - Final
Abscess Escherichia coli
Viridans Streptococcus Group
Gram Stain - Final
06/27/23 17:28 Blood Culture - Preliminary
Blood/Venous No Growth in 48 hours- Final report to follow
06/27/23 20:27 Urine Culture - Final
Urine NO GROWTH
06/27/23 18:20 C. difficile GDH Antigen & Toxins - Final
Feces/Stool Negative for toxigenic C.difficile
Imaging:
06/27/2023 CT abdomen/pelvis with contrast: There is a complex rim-enhancing collection containing fluid and gas in the anterior mid abdomen concerning for intra-abdominal abscess. There is no enteric contrast material within the collection, no free
air elsewhere in the abdomen. Please see full dictation for additional detail.
Assessment / Plan
Abdominal abscess
� Status post aspiration/drainage
Strep anginosus bacteremia
Abdominal pain
Recommendations:
Continue with antibiotic therapy, although can de-escalate to Unasyn 3 g IV every 6 hours.
Follow KEATON drain output.
Repeat blood cultures to ensure no ongoing bacteremia.
Suspect patient may need an outpatient course of IV antibiotics following discharge; if so, at D/C can likely be transition to once daily ertapenem.
Follow WBC / temps.
--- NOTE | 2023-06-30 12:42 | W.PN.GS2 ---
Today's Communication / Plan
-
`
Assessment / Plan
-
Assessment: 77M with small bowel perforation of undetermined chronicity/etiology and associated contained intra-abdominal fluid collection
s/p IR drainage 06/28/2023: with enteric contents in the drain -EC fistula
AFVSS
IR drain 260 mL first 24 hours, 165 mL last 24 hours
Plan: At this point appears to have adequate control of EC fistula
Given stable outputs below 200 mL for last 24 hours, afebrile, no leukocytosis and improving pain will start on clear liquid diet with Ensure Enlive supplements
Maintain IR drain
Will need follow-up imaging at latter date to confirm adequate source control for evolving EC fistula
Subjective Data
-
Date of Service: June 30, 2023
Patient seen and examined
Mild residual abdominal discomfort/pain.
No nausea, no vomiting
Appetite returning just a bit
Objective Data
-
Intake and Output
06/29/23 06/30/23 07/01/23
06:59 06:59 06:59
Intake Total 550 / 550 1700 / 1700
Output Total 960 / 960 1914 / 191
Balance -410 / -410 -215 / -215
Intake:
Oral fluids 500 / 500
IV fluids (Total) 500 / 500 1100 / 1100
IV piggybacks 50 / 50 100 / 100
Output:
Drain Output (Total) 260 / 260 165 / 165
Jaswinder-Jovel 200 / 200 165 / 165
Left Abdomen Placed in IR 60 / 60
Urine, Voided 700 / 700 1750 / 1750
Other:
Number of approximated MODERATE 1 1
amounts of urine
Vital Signs
Temp Pulse Resp BP Pulse Ox
97.6 F 74 16 135/69 95
06/30/23 07:00 06/30/23 07:00 06/30/23 07:00 06/30/23 07:00 06/30/23 07:00
Lab Results
06/30/23 05:59
06/30/23 05:59
Calcium 8.3 mg/dl (8.4-10.2) L 06/30/23 05:59
Total Bilirubin 1.2 mg/dl (0.2-1.3) 06/28/23 06:26
AST 25 U/L (17-59) 06/28/23 06:26
ALT 34 U/L (0-50) 06/28/23 06:26
Alkaline Phosphatase 129 U/L (38-126) H 06/28/23 06:26
Total Protein 5.6 g/dl (6.3-8.2) L 06/28/23 06:26
Albumin 3.1 g/dl (3.5-5.0) L 06/28/23 06:26
Physical Exam
-
NAD AAOx3
ABD: Soft, nondistended, firm left of midline periumbilical region with localized tenderness. Voluntary guarding on deeper palpation.
IR drain in place with bilious output
[2023-06-30 15:00] VITALS: BP 138/61
[2023-06-30] MEDS: UNASYN IV ×2 (16:23→21:43)
--- NOTE | 2023-06-30 17:20 | W.PN.SURGUPD ---
Surgical Update
Surgical Update
Return to see patient. His 2 sisters are currently at bedside with him.
Detailed discussions with everyone reviewing hospitalization, studies and care to date from a surgical perspective. 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
Clear liquids for comfort at this time
Will place PICC line tomorrow
Start TPN tomorrow
Continue to closely monitor IR drain outputs and adequacy of control of EC fistula effluent via IR drain
Will need subsequent studies including small bowel follow-through to help delineate location of fistula within small bowel tract this will likely be early next week depending on clinical course. Future CT abdomen/pelvis imaging to confirm adequate
control and drainage of abscess/fistula track.
Patient will require prolonged hospitalization for all the above care as do not expect he will be able to resume p.o. intake to maintain either hydration or adequate nutritional needs.
Ideally EC fistula surgical management is delayed (uncertain time frame - could be weeks to months) until resolution of the acute inflammatory response as long as can maintain control of fistula effluent and potential infectious complications and in
the interim continue to build nutritional base with parenteral nutrition to start.
Etiology to bowel perforation with resultant fistula remains uncertain
[2023-06-30 22:16] VITALS: BP 126/64
[2023-06-30] MEDS: MELATONIN 3 MG PO (22:21)
[2023-07-01] MEDS: UNASYN IV ×4 (04:09→22:06)
[2023-07-01] MEDS: NSS 1000 IV (04:19)
[2023-07-01 06:33] LABS: % Eosinophils 2.4 % (0-6); % Immature Granulocytes 0.2 % (0-0.5); % Lymphocytes 31.1 % (20.5-51.1); % Monocytes 13.7 % (1.7-9.3); % Neutrophils 51.6 % (42.2-75.2); Absolute Eosinophils 0.1 10^3/uL (0-0.7); Absolute Lymphocytes 1.3 10^3/uL (1.2-3.4); Absolute Monocytes 0.6 10^3/uL (0.1-0.6); Absolute Neutrophils 2.1 10^3/uL (1.4-6.5); Hematocrit 33.5 % (39.0-52.0); Hemoglobin 11.4 g/dL (13.0-18.0); Mean Corpuscular Hgb 31.8 pg (27.0-31.0); Mean Corpuscular Volume 93.6 fL (80.0-94.0); Mean Platelet Volume 9.8 fL (7.4-10.4); Nucleated Red Blood Cells % 0 % (-); Platelet Count 383 10^3/uL (130-400); Red Blood Cell Count 3.58 10^6/uL (4.70-6.10); Red Cell Dist. Width 11.7 % (11.5-14.5); White Blood Cell Count 4.1 10^3/uL (4.8-10.8)
[2023-07-01 07:03] LABS: Blood Urea Nitrogen 4 mg/dl (9-20); Calcium 8.4 mg/dl (8.4-10.2); Carbon Dioxide 25 mmol/L (22-30); Chloride 102 mmol/L (98-107); Estimated Creatinine Clearance 105 ml/min; Glucose 89 mg/dl (70-99); Potassium 3.7 mmol/L (3.5-5.1); Sodium 139 mmol/L (135-145); eGFR > 60.00
[2023-07-01 07:30] VITALS: BP 144/67
[2023-07-01] MEDS: NSS (PRESERVATIVE FREE) 10 ML IV (08:28)
[2023-07-01] MEDS: PROTONIX IV 40 MG IV (08:28)
[2023-07-01 09:24] VITALS: BMI 24.4
--- NOTE | 2023-07-01 10:49 | W.PN.GS2 ---
Addendum entered and electronically signed by Mike Tyson MD 07/01/23 15:09:
Attempted to call sister for an update, no response, VM left
Original Note:
Today's Communication / Plan
-
-- Clears with supplement shakes, plan for PICC and TPN
-- IV antibiotics while in hospital, current on Unasyn
-- Continue with IR drain, flush daily, record outputs and monitor for high volume with PO intake, tentative plan for drain study in 1 week
Assessment / Plan
-
Assessment: 77M with small bowel perforation of undetermined chronicity/etiology and associated contained intra-abdominal fluid collection
S/p IR drainage 06/28/2023: with enteric contents in the drain indicative of EC fistula
AFVSS
IR drain 260 mL first 24 hours, 80 mL last 24 hours
Currently stable with a well-controlled low-volume ECF. Lengthy discussion with the patient regarding future management. Plan for continued IR drainage, flush daily. Limited oral intake for comfort. Will initiate TPN today. If drain outputs
increase above 200 mL a day will consider trial of Octreotide. Continue with a 10 to 14-day course of antibiotics. Will need drain study in approximately 1 weeks. Operative intervention to be delayed until the 4-week time period. All questions
answered.
Plan:
-- Clears with supplement shakes, plan for PICC and TPN
-- IV antibiotics while in hospital, current on Unasyn
-- Continue with IR drain, flush daily, record outputs and monitor for high volume with PO intake, tentative plan for drain study in 1 week
-- Lovenox for DVT
-- Protonix for GI
-- OK for OOB
-- Monitor in hospital
Subjective Data
-
Date of Service: July 01, 2023
No major complaints, feels better from admission. No fevers. No nausea or emesis. Passing flatus and loose, non-bloody stool.
Objective Data
-
Intake and Output
06/30/23 07/01/23 07/02/23
06:59 06:59 06:59
Intake Total 1700 / 1700 580 / 580
Output Total 1914 / 1914 1979 / 1979
Balance -215 / -215 -1400 / -1400
Intake:
Oral fluids 500 / 500 580 / 580
IV fluids (Total) 1100 / 1100
IV piggybacks 100 / 100
Output:
Drain Output (Total) 165 / 165 80 / 80
Jaswinder-Jovel 165 / 165 80 / 80
Urine, Voided 1750 / 1750 1900 / 1900
Other:
Number of approximated MODERATE 1
amounts of urine
Vital Signs
Temp Pulse Resp BP Pulse Ox
97.5 F 69 16 144/67 94
07/01/23 07:30 07/01/23 07:30 07/01/23 07:30 07/01/23 07:30 07/01/23 07:30
Lab Results
07/01/23 05:53
07/01/23 05:53
Calcium 8.4 mg/dl (8.4-10.2) 07/01/23 05:53
Total Bilirubin 1.2 mg/dl (0.2-1.3) 06/28/23 06:26
AST 25 U/L (17-59) 06/28/23 06:26
ALT 34 U/L (0-50) 06/28/23 06:26
Alkaline Phosphatase 129 U/L (38-126) H 06/28/23 06:26
Total Protein 5.6 g/dl (6.3-8.2) L 06/28/23 06:26
Albumin 3.1 g/dl (3.5-5.0) L 06/28/23 06:26
Physical Exam
-
Gen: NAD
Abd: soft, minimal tenderness at drain insertion, ND, IR drain with thin bilious output
--- NOTE | 2023-07-01 11:22 | W.PN.HOSP.TC ---
Today's Communication/Plan
-
Plan to start TPN
IV antibiotic
Follow-up on the culture data
Out of bed ambulate
Assessment / Plan
Assessment / Plan
# Sepsis (fever, tachypnea) secondary to intra-abdominal abscess associated with enteritis/small contained perforation with EC fistula
#strep anginosus bacteremia 2/2 above
-CT abdomen pelvis shows complex rim-enhancing collection containing fluid and gas in anterior mid abdomen concerning for intra-abdominal abscess possibly associated with infectious/inflammatory enteritis or small contained perforation
-clears with supplements
-DC IVF as started on TPN
-Plan to start TPN later today
-Zosyn switched to Unasyn
-Surveillance cultures in lab.
-start Protonix
-KEATON drain 80cc seems to be decreasing
-Dilaudid for pain, Zofran for nausea as needed
-Fluid cultures from IR drainage with polymicrobial growth
-s/p IRAD drainage with drain placement. 50cc of purulent fluid sent.
-Patient ID recs.
# Mild hyponatremia
-Monitor with IV fluid
Recent influenza infection
-Symptoms resolved
History of colon resection
Hyperlipidemia
-hold statin
DNR/DNI
DVT prophylaxis�lovenox
Anticipated Discharge: > 48 hours
Subjective/Interval History
-
Date of Service: July 01, 2023
denies abd pain
tolerating clears
Objective Data
-
Labs:
Laboratory Results
07/01/23 07/01/23
05:53 11:08
WBC 4.1 L
Hgb 11.4 L
Hct 33.5 L
Plt Count 383
Sodium 139 Pending
Potassium 3.7 Pending
Chloride 102 Pending
Carbon Dioxide 25 Pending
BUN 4 L Pending
Creatinine 0.5 L Pending
Glucose 89 Pending
Calcium 8.4 Pending
Total Bilirubin Pending
AST Pending
ALT Pending
Alkaline Phosphatase Pending
Vital Signs:
Vital Signs
Temp Pulse Resp BP Pulse Ox
97.5 F 69 16 144/67 94
07/01/23 07:30 07/01/23 07:30 07/01/23 07:30 07/01/23 07:30 07/01/23 07:30
I&O
06/30/23 07/01/23 07/02/23
06:59 06:59 06:59
Intake Total 1700 / 1700 580 / 580
Output Total 1914 / 1914 1979 / 1979
Balance -215 / -215 -1400 / -1400
Physical Exam
-
General: Well Developed, Well Nourished and No Apparent Distress
HEENT: Normocephalic and Atraumatic
Respiratory: Clear to Auscultation; Negative Wheezes or Rales
Cardiac: Regular Rhythm and S1/S2
GI: Soft, Nondistended, Normal Bowel Sounds, Tender and Other (KEATON drain with biliary output )
Genito-urinary: No Costovertebral Tender
Musculoskeletal: No Edema
Neuro: Awake, Alert, Oriented and AO x 3
Psych: Calm
[2023-07-01 11:42] LABS: ALT (SGPT) 24 U/L (0-50); AST (SGOT) 20 U/L (17-59); Albumin 2.9 g/dl (3.5-5.0); Alkaline Phosphatase 99 U/L (38-126); Blood Urea Nitrogen 5 mg/dl (9-20); Calcium 8.7 mg/dl (8.4-10.2); Carbon Dioxide 25 mmol/L (22-30); Chloride 101 mmol/L (98-107); Estimated Creatinine Clearance 105 ml/min; Glucose 110 mg/dl (70-99); Magnesium 2.1 mg/dl (1.6-2.3); Phosphorus 2.9 mg/dl (2.5-4.5); Potassium 3.7 mmol/L (3.5-5.1); Sodium 138 mmol/L (135-145); Total Bilirubin 0.6 mg/dl (0.2-1.3); Total Protein 5.5 g/dl (6.3-8.2); Triglycerides 160 mg/dl (10-149); eGFR > 60.00
--- NOTE | 2023-07-01 14:03 | W.PN.ID1 ---
Date of Service
Date of Service: July 01, 2023
Today's Communication
Continue Unasyn.
Assessment / Plan
Abdominal abscess
� Status post aspiration/drain placement. Cx E. coli, Viridans strep
Strep anginosus bacteremia - GI source
Abdominal pain
Recommendations:
Fever - resolved
Continue Unasyn 3 g IV every 6 hours.
Follow KEATON drain output.
Repeat blood cultures neg to date
Suspect patient may need an outpatient course of IV antibiotics following discharge; if so, at D/C can likely be transition to once daily ertapenem.
Chief Complaint
-: Bacteremia and Other (bowel perforation)
Subjective / Review of Systems
Abdominal pain improving
Vital Signs / Physical Exam
Vital Signs
Vital Signs
Temp Pulse Resp BP Pulse Ox
97.5 F 69 16 144/67 94
07/01/23 07:30 07/01/23 07:30 07/01/23 07:30 07/01/23 07:30 07/01/23 07:30
Physical Exam
Cardiovascular: Regular Rate and S1/S2
Gastrointestinal: Soft, Tender (mild), Decreased Bowel Sounds and Other (KEATON drain with feculent output)
Neurological: Awake and Alert
Lines: PICC (RUE)
Objective Data
Lab Data
Lab Results
07/01/23 05:53
07/01/23 11:08
PT 15.7 Sec (11.4-14.6) H 06/28/23 10:12
INR 1.22 06/28/23 10:12
Estimated Creat Clear 105 ml/min 07/01/23 11:08
Lactic Acid 0.8 mmol/L (0.7-2.0) 06/27/23 17:28
Total Bilirubin 0.6 mg/dl (0.2-1.3) 07/01/23 11:08
AST 20 U/L (17-59) 07/01/23 11:08
ALT 24 U/L (0-50) 07/01/23 11:08
Alkaline Phosphatase 99 U/L (38-126) 07/01/23 11:08
Most recent labs reviewed.
Micro Results:
06/30/23 12:50 Blood Culture - Preliminary
Blood/Venous No Growth in 24 hours- Final report to follow
06/30/23 12:32 Blood Culture - Preliminary
Blood/Venous No Growth in 24 hours- Final report to follow
06/27/23 17:28 Blood Culture - Preliminary
Blood/Venous No Growth in 72 hours- Final report to follow
06/27/23 20:27 Blood Culture - Preliminary
Blood/Venous Streptococcus anginosus
Gram Stain - Preliminary
06/28/23 18:14 Salmonella/Shigella Culture - Final
Feces/Stool No Salmonella, Shigella, Aeromonas or Plesiomonas species
isolated.
Campylobacter Culture - Final
No Campylobacter species isolated.
Shiga Toxin Test - Final
No E. coli Shiga Toxin 1 or 2 detected.
06/28/23 13:30 Wound Culture - Final
Abscess Escherichia coli
Viridans Streptococcus Group
Gram Stain - Final
06/27/23 20:27 Urine Culture - Final
Urine NO GROWTH
06/27/23 18:20 C. difficile GDH Antigen & Toxins - Final
Feces/Stool Negative for toxigenic C.difficile
Imaging:
06/27/2023 CT abdomen/pelvis with contrast: There is a complex rim-enhancing collection containing fluid and gas in the anterior mid abdomen concerning for intra-abdominal abscess. There is no enteric contrast material within the collection, no free
air elsewhere in the abdomen. Please see full dictation for additional detail.
[2023-07-01 15:30] VITALS: BP 126/66
--- NOTE | 2023-07-01 16:21 | CM ---
patient with sepsis,iv abx changed to iv unasyn,ivf dc.starting tpn.
plan is for patient to dc home with no needs vs vn.
[2023-07-01] MEDS: LOVENOX 40 MG SC (17:25)
[2023-07-01] MEDS: Parenteral Nutrition, Central 1580 IV (20:48)
[2023-07-01 21:20] LABS: Glucose - Point of Care 85 mg/dl (70-99)
[2023-07-01 23:45] VITALS: BP 147/72
[2023-07-02] MEDS: MUCINEX 1200 MG PO (00:43)
[2023-07-02 03:38] LABS: Glucose - Point of Care 142 mg/dl (70-99)
[2023-07-02] MEDS: UNASYN IV ×4 (03:50→21:10)
[2023-07-02 04:55] LABS: % Eosinophils 2.4 % (0-6); % Immature Granulocytes 0.2 % (0-0.5); % Lymphocytes 38.7 % (20.5-51.1); % Monocytes 12.2 % (1.7-9.3); % Neutrophils 45.5 % (42.2-75.2); Absolute Eosinophils 0.1 10^3/uL (0-0.7); Absolute Lymphocytes 1.6 10^3/uL (1.2-3.4); Absolute Monocytes 0.5 10^3/uL (0.1-0.6); Absolute Neutrophils 1.9 10^3/uL (1.4-6.5); Hematocrit 31.4 % (39.0-52.0); Mean Corpuscular Hgb 31.5 pg (27.0-31.0); Mean Platelet Volume 9.4 fL (7.4-10.4); Nucleated Red Blood Cells % 0 % (-); Platelet Count 389 10^3/uL (130-400); Red Blood Cell Count 3.49 10^6/uL (4.70-6.10); Red Cell Dist. Width 11.7 % (11.5-14.5); White Blood Cell Count 4.1 10^3/uL (4.8-10.8)
[2023-07-02 05:20] LABS: Blood Urea Nitrogen 7 mg/dl (9-20); Calcium 8.7 mg/dl (8.4-10.2); Carbon Dioxide 28 mmol/L (22-30); Chloride 103 mmol/L (98-107); Estimated Creatinine Clearance 105 ml/min; Glucose 127 mg/dl (70-99); Magnesium 2.1 mg/dl (1.6-2.3); Phosphorus 2.9 mg/dl (2.5-4.5); Potassium 3.5 mmol/L (3.5-5.1); Sodium 140 mmol/L (135-145); eGFR > 60.00
[2023-07-02 07:30] VITALS: BP 118/64
[2023-07-02 08:29] VITALS: BMI 22.8
--- NOTE | 2023-07-02 09:28 | W.PN.GS2 ---
Today's Communication / Plan
-
TPN
Assessment / Plan
-
Assessment: 77M with small bowel perforation of undetermined chronicity/etiology and associated contained intra-abdominal fluid collection
S/p IR drainage 06/28/2023: with enteric contents in the drain indicative of EC fistula
AFVSS
IR drain 45 mL last 24 hours
Currently stable with a well-controlled low-volume ECF. Plan for continued IR drainage, flush daily. Limited oral intake for comfort. Will initiate TPN today. If drain outputs increase above 200 mL a day will consider trial of Octreotide.
Continue with a 10 to 14-day course of antibiotics. Will need drain study in approximately 1 weeks. Operative intervention to be delayed until the 4-week time period. All questions answered.
Plan:
-- Clears with supplement shakes, plan for PICC and TPN
-- IV antibiotics while in hospital, current on Unasyn
-- Continue with IR drain, flush daily, record outputs and monitor for high volume with PO intake, tentative plan for drain study in 1 week
-- Lovenox for DVT
-- Protonix for GI
-- OK for OOB
-- Monitor in hospital
Subjective Data
-
Date of Service: July 02, 2023
Patient states he has no nausea or vomiting. His pain is controlled. He has no complaints.
Objective Data
-
Intake and Output
07/01/23 07/02/23 07/03/23
06:59 06:59 06:59
Intake Total 580 / 580 510 / 510
Output Total 1979 / 1979 1120 / 1120
Balance -1400 / -1400 -610 / -610
Intake:
Oral fluids 580 / 580 500 / 500
Amount instilled into Drain (
Total)
Elda
Output:
Drain Output (Total) 80 / 80 45 / 45
Elda 45 / 45
Urine, Voided 1900 / 1900 1075 / 1075
Other:
Number of approximated MODERATE 2
amounts of urine
Vital Signs
Temp Pulse Resp BP Pulse Ox
97.7 F 77 18 118/64 97
07/02/23 07:30 07/02/23 07:30 07/02/23 07:30 07/02/23 07:30 07/02/23 07:30
Lab Results
07/02/23 04:21
07/02/23 04:21
Calcium 8.7 mg/dl (8.4-10.2) 07/02/23 04:21
Phosphorus 2.9 mg/dl (2.5-4.5) 07/02/23 04:21
Magnesium 2.1 mg/dl (1.6-2.3) 07/02/23 04:21
Total Bilirubin 0.6 mg/dl (0.2-1.3) 07/01/23 11:08
AST 20 U/L (17-59) 07/01/23 11:08
ALT 24 U/L (0-50) 07/01/23 11:08
Alkaline Phosphatase 99 U/L (38-126) 07/01/23 11:08
Total Protein 5.5 g/dl (6.3-8.2) L 07/01/23 11:08
Albumin 2.9 g/dl (3.5-5.0) L 07/01/23 11:08
Physical Exam
-
Gen: NAD
Abd: soft, minimal tenderness at drain insertion, ND, IR drain with thin bilious output
[2023-07-02] MEDS: PROTONIX IV 40 MG IV (09:30)
[2023-07-02] MEDS: NSS (PRESERVATIVE FREE) 10 ML IV (09:30)
--- NOTE | 2023-07-02 11:29 | W.PN.HOSP.TC ---
Today's Communication/Plan
-
TPN per surgery
IV abx
surveillance culture negative
Assessment / Plan
Assessment / Plan
# Sepsis (fever, tachypnea) secondary to intra-abdominal abscess associated with enteritis/small contained perforation with EC fistula
#strep anginosus bacteremia 2/2 above
-CT abdomen pelvis shows complex rim-enhancing collection containing fluid and gas in anterior mid abdomen concerning for intra-abdominal abscess possibly associated with infectious/inflammatory enteritis or small contained perforation
-clears with supplements
-DC IVF as started on TPN
-started on TPN.
-Zosyn switched to Unasyn.
-Surveillance cultures in lab.
-start Protonix
-KEATON drain 45cc seems to be decreasing
-Dilaudid for pain, Zofran for nausea as needed
-Fluid cultures from IR drainage with polymicrobial growth
-s/p IRAD drainage with drain placement. 50cc of purulent fluid sent.
-Patient ID recs.
# Mild hyponatremia
-Monitor with IV fluid
Recent influenza infection
-Symptoms resolved
History of colon resection
Hyperlipidemia
-hold statin
DNR/DNI
DVT prophylaxis�lovenox
Anticipated Discharge: > 48 hours
Subjective/Interval History
-
Date of Service: July 02, 2023
states KEATON drain with decrease output
Objective Data
-
Labs:
Laboratory Results
07/02/23
04:21
WBC 4.1 L
Hgb 11.0 L
Hct 31.4 L
Plt Count 389
Sodium 140
Potassium 3.5
Chloride 103
Carbon Dioxide 28
BUN 7 L
Creatinine 0.5 L
Glucose 127 H
Calcium 8.7
Vital Signs:
Vital Signs
Temp Pulse Resp BP Pulse Ox
97.7 F 77 18 118/64 97
07/02/23 07:30 07/02/23 07:30 07/02/23 07:30 07/02/23 07:30 07/02/23 07:30
I&O
07/01/23 07/02/23 07/03/23
06:59 06:59 06:59
Intake Total 580 / 580 510 / 510
Output Total 1979 / 1979 1120 / 1120
Balance -1400 / -1400 -610 / -610
Physical Exam
-
General: Well Developed, Well Nourished and No Apparent Distress
HEENT: Normocephalic and Atraumatic
Respiratory: Clear to Auscultation; Negative Wheezes or Rales
Cardiac: Regular Rhythm and S1/S2
GI: Soft, Nondistended, Normal Bowel Sounds, Tender and Other (KEATON drain with dark brown color output)
Genito-urinary: No Costovertebral Tender
Musculoskeletal: No Edema
Neuro: Awake, Alert, Oriented and AO x 3
Psych: Calm
[2023-07-02 12:52] LABS: Glucose - Point of Care 135 mg/dl (70-99)
--- NOTE | 2023-07-02 13:19 | PTCARENOTE ---
PICC line infusing TPN without any difficulty. antibiotics given as prescribed. PT OOB into chair working on computer. He has been on the phone all day. 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 He has asked many questions on weight loss and how to
gain weight. education given.
--- NOTE | 2023-07-02 15:04 | PTCARENOTE ---
Second assessment unchanged from AM. PT still working. I encouraged him to take time to rest but he stated he is behind .
[2023-07-02 15:21] VITALS: BP 119/61
[2023-07-02] MEDS: LOVENOX 40 MG SC (16:52)
[2023-07-02] MEDS: ROBITUSSIN 200 MG PO (16:52)
[2023-07-02 17:56] LABS: Glucose - Point of Care 105 mg/dl (70-99)
[2023-07-02] MEDS: Parenteral Nutrition, Central 1580 IV (21:09)
[2023-07-02 23:50] VITALS: BP 141/71
[2023-07-03] MEDS: MELATONIN 3 MG PO ×2 (01:30→23:32)
--- NOTE | 2023-07-03 03:50 | PTCARENOTE ---
Pt received from previous shift in bed. AAOx3, pleasant. Full physical assessment documented. TPN infusing via RDL PICC without complication. Brisk blood return observed via both lumens. L abd KEATON drain w/purulent greenish drainage. Pt
requested melatonin, [employer] covering house contacted, electronic orders received (refer to MAR). Call sorensen within reach. Will continue to closely monitor.
[2023-07-03] MEDS: UNASYN IV ×4 (05:18→22:38)
[2023-07-03 05:26] LABS: Glucose - Point of Care 121 mg/dl (70-99)
[2023-07-03 05:35] VITALS: BMI 22.7
[2023-07-03 06:17] LABS: % Basophils 0.8 % (0-2); % Eosinophils 2.7 % (0-6); % Immature Granulocytes 0.4 % (0-0.5); % Lymphocytes 29.6 % (20.5-51.1); % Monocytes 11.3 % (1.7-9.3); % Neutrophils 55.2 % (42.2-75.2); Absolute Eosinophils 0.1 10^3/uL (0-0.7); Absolute Lymphocytes 1.6 10^3/uL (1.2-3.4); Absolute Monocytes 0.6 10^3/uL (0.1-0.6); Absolute Neutrophils 2.9 10^3/uL (1.4-6.5); Hemoglobin 11.3 g/dL (13.0-18.0); Mean Corp Hgb Conc. 35.3 g/dL (33.0-37.0); Mean Corpuscular Hgb 31.9 pg (27.0-31.0); Mean Corpuscular Volume 90.4 fL (80.0-94.0); Mean Platelet Volume 9.3 fL (7.4-10.4); Nucleated Red Blood Cells % 0 % (-); Platelet Count 366 10^3/uL (130-400); Red Blood Cell Count 3.54 10^6/uL (4.70-6.10); Red Cell Dist. Width 11.8 % (11.5-14.5); White Blood Cell Count 5.2 10^3/uL (4.8-10.8)
[2023-07-03 06:42] LABS: Blood Urea Nitrogen 10 mg/dl (9-20); Calcium 8.9 mg/dl (8.4-10.2); Carbon Dioxide 29 mmol/L (22-30); Chloride 104 mmol/L (98-107); Estimated Creatinine Clearance 103 ml/min; Glucose 133 mg/dl (70-99); Magnesium 2.3 mg/dl (1.6-2.3); Phosphorus 3.7 mg/dl (2.5-4.5); Potassium 4.1 mmol/L (3.5-5.1); Sodium 142 mmol/L (135-145); eGFR > 60.00
[2023-07-03 08:21] VITALS: BP 125/77
[2023-07-03] MEDS: NSS (PRESERVATIVE FREE) 10 ML IV (09:38)
[2023-07-03] MEDS: PROTONIX IV 40 MG IV (09:38)
[2023-07-03] MEDS: ROBITUSSIN 200 MG PO ×3 (09:39→22:38)
--- NOTE | 2023-07-03 09:55 | W.PN.ID1 ---
Date of Service
Date of Service: July 03, 2023
Today's Communication
Continue Unasyn.
Assessment / Plan
Abdominal abscess
� Status post aspiration/drain placement. Cx E. coli, Viridans strep
Strep anginosus bacteremia - GI source
Abdominal pain
Recommendations:
Fever - resolved
Continue Unasyn 3 g IV every 6 hours.
KEATON drain output decreasing.
Repeat blood cultures neg to date
Has PICC. On TPN.
Suspect patient may need an outpatient course of IV antibiotics following discharge; if so, at D/C can likely be transition to once daily ertapenem.
Chief Complaint
-: Bacteremia and Other (bowel perforation)
Subjective / Review of Systems
Feels well.
Vital Signs / Physical Exam
Vital Signs
Vital Signs
Temp Pulse Resp BP Pulse Ox
97.8 F 68 16 125/77 96
07/03/23 08:21 07/03/23 08:21 07/03/23 08:21 07/03/23 08:21 07/03/23 08:21
Physical Exam
Constitutional: No Acute Distress and Comfortable
Cardiovascular: Regular Rate and S1/S2
Pulmonary: Clear
Gastrointestinal: Soft, Non Tender, Non Distended and Other (KEATON drain small amt of brown fluid)
Neurological: AO x 3
Lines: PICC (RUE no erythema)
Objective Data
Lab Data
Lab Results
07/03/23 05:57
07/03/23 05:57
PT 15.7 Sec (11.4-14.6) H 06/28/23 10:12
INR 1.22 06/28/23 10:12
Estimated Creat Clear 103 ml/min 07/03/23 05:57
Lactic Acid 0.8 mmol/L (0.7-2.0) 06/27/23 17:28
Total Bilirubin 0.6 mg/dl (0.2-1.3) 07/01/23 11:08
AST 20 U/L (17-59) 07/01/23 11:08
ALT 24 U/L (0-50) 07/01/23 11:08
Alkaline Phosphatase 99 U/L (38-126) 07/01/23 11:08
Most recent labs reviewed.
Micro Results:
06/27/23 17:28 Blood Culture - Final
Blood/Venous No Growth - Final Report
06/30/23 12:50 Blood Culture - Preliminary
Blood/Venous No Growth in 48 hours- Final report to follow
06/30/23 12:32 Blood Culture - Preliminary
Blood/Venous No Growth in 48 hours- Final report to follow
06/27/23 20:27 Blood Culture - Preliminary
Blood/Venous Streptococcus anginosus
Gram Stain - Preliminary
06/28/23 18:14 Salmonella/Shigella Culture - Final
Feces/Stool No Salmonella, Shigella, Aeromonas or Plesiomonas species
isolated.
Campylobacter Culture - Final
No Campylobacter species isolated.
Shiga Toxin Test - Final
No E. coli Shiga Toxin 1 or 2 detected.
06/28/23 13:30 Wound Culture - Final
Abscess Escherichia coli
Viridans Streptococcus Group
Gram Stain - Final
06/27/23 20:27 Urine Culture - Final
Urine NO GROWTH
06/27/23 18:20 C. difficile GDH Antigen & Toxins - Final
Feces/Stool Negative for toxigenic C.difficile
Imaging:
06/27/2023 CT abdomen/pelvis with contrast: There is a complex rim-enhancing collection containing fluid and gas in the anterior mid abdomen concerning for intra-abdominal abscess. There is no enteric contrast material within the collection, no free
air elsewhere in the abdomen. Please see full dictation for additional detail.
[2023-07-03 11:01] LABS: COVID-19 Antigen Negative (Negative)
--- NOTE | 2023-07-03 11:11 | W.PN.HOSP.TC ---
Today's Communication/Plan
-
Cont with TPN
IV abx
Clears with ensure
Surgery recs
Assessment / Plan
Assessment / Plan
# Sepsis (fever, tachypnea) secondary to intra-abdominal abscess associated with enteritis/small contained perforation with EC fistula
#strep anginosus bacteremia 2/2 [address]
-CT abdomen pelvis shows complex rim-enhancing collection containing fluid and gas in anterior mid abdomen concerning for intra-abdominal abscess possibly associated with infectious/inflammatory enteritis or small contained perforation
-clears with supplements -diet per surgery
-DC IVF as started on TPN
-Remains on TPN.
-Zosyn switched to Unasyn.
-Surveillance cultures negative so far.
-start Protonix
-KEATON drain 10 cc seems to be decreasing on daily basis
-Dilaudid for pain, Zofran for nausea as needed
-Fluid cultures from IR drainage with polymicrobial growth
-s/p IRAD drainage with drain placement. 50cc of purulent fluid sent.
-Patient ID recs.
# Mild hyponatremia
-Monitor with IV fluid
-resolved
Recent influenza infection
-Symptoms resolved
History of colon resection
Hyperlipidemia
-hold statin
DNR/DNI
DVT prophylaxis�lovenox
Anticipated Discharge: > 48 hours
Subjective/Interval History
-
Date of Service: July 03, 2023
denies abd pain
Objective Data
-
Labs:
Laboratory Results
07/03/23
05:57
WBC 5.2
Hgb 11.3 L
Hct 32.0 L
Plt Count 366
Sodium 142
Potassium 4.1
Chloride 104
Carbon Dioxide 29
BUN 10
Creatinine 0.5 L
Glucose 133 H
Calcium 8.9
Vital Signs:
Vital Signs
Temp Pulse Resp BP Pulse Ox
97.8 F 68 16 125/77 96
07/03/23 08:21 07/03/23 08:21 07/03/23 08:21 07/03/23 08:21 07/03/23 08:21
I&O
07/02/23 07/03/23 07/04/23
06:59 06:59 06:59
Intake Total 510 / 510 1020 / 1020
Output Total 1120 / 1120 1984
Balance -610 / -610 -965 / -965
Physical Exam
-
General: Well Developed, Well Nourished and No Apparent Distress
HEENT: Normocephalic and Atraumatic
Respiratory: Clear to Auscultation; Negative Wheezes or Rales
Cardiac: Regular Rhythm and S1/S2
GI: Soft, Nondistended, Normal Bowel Sounds, Tender and Other (KEATON drain with dark brown color output)
Genito-urinary: No Costovertebral Tender
Musculoskeletal: No Edema
Neuro: Awake, Alert, Oriented and AO x 3
Psych: Calm
[2023-07-03 11:56] LABS: Glucose - Point of Care 153 mg/dl (70-99)
--- NOTE | 2023-07-03 12:13 | W.PN.GS2 ---
Today's Communication / Plan
-
TPN
Assessment / Plan
-
Assessment: 77M with small bowel perforation of undetermined chronicity/etiology and associated contained intra-abdominal fluid collection
S/p IR drainage 06/28/2023: with enteric contents in the drain indicative of EC fistula
AFVSS
IR drain 10 mL last 24 hours
Currently stable with a well-controlled low-volume ECF. Plan for continued IR drainage, flush daily. Limited oral intake for comfort. Will initiate TPN today. If drain outputs increase above 200 mL a day will consider trial of Octreotide.
Continue with a 10 to 14-day course of antibiotics. Will need drain study in approximately 1 weeks. Operative intervention to be delayed until the 4-week time period. All questions answered.
Plan:
-- Clears with supplement shakes, on daily TPN
-- IV antibiotics while in hospital, current on Unasyn
-- Continue with IR drain, flush daily, record outputs and monitor for high volume with PO intake, tentative plan for drain study in 1 week
-- Lovenox for DVT
-- Protonix for GI
-- OK for OOB
-- Monitor in hospital
Subjective Data
-
Date of Service: July 03, 2023
Patient states he feels well. He has no complaints today. He is tolerating clear liquids with Ensure. He has no abdominal pain.
Objective Data
-
Intake and Output
07/02/23 07/03/23 07/04/23
06:59 06:59 06:59
Intake Total 510 / 510 1020 / 1020
Output Total 1120 / 1120 1984
Balance -610 / -610 -965 / -965
Intake:
Oral fluids 500 / 500 780 / 780
IV piggybacks 240 / 240
Amount instilled into Drain (
Total)
Elda
Output:
Drain Output (Total)
Jaswinder-Jovel
Urine, Graham 600 / 600
Urine, Voided 1075 / 1075 1375 / 1375
Other:
Number of approximated MODERATE 2
amounts of urine
Vital Signs
Temp Pulse Resp BP Pulse Ox
97.8 F 68 16 125/77 96
07/03/23 08:21 07/03/23 08:21 07/03/23 08:21 07/03/23 08:21 07/03/23 08:21
Lab Results
07/03/23 05:57
07/03/23 05:57
Calcium 8.9 mg/dl (8.4-10.2) 07/03/23 05:57
Phosphorus 3.7 mg/dl (2.5-4.5) 07/03/23 05:57
Magnesium 2.3 mg/dl (1.6-2.3) 07/03/23 05:57
Total Bilirubin 0.6 mg/dl (0.2-1.3) 07/01/23 11:08
AST 20 U/L (17-59) 07/01/23 11:08
ALT 24 U/L (0-50) 07/01/23 11:08
Alkaline Phosphatase 99 U/L (38-126) 07/01/23 11:08
Total Protein 5.5 g/dl (6.3-8.2) L 07/01/23 11:08
Albumin 2.9 g/dl (3.5-5.0) L 07/01/23 11:08
Physical Exam
-
Gen: NAD
Abd: soft, minimal tenderness at drain insertion, ND, IR drain with thin bilious output
--- NOTE | 2023-07-03 15:35 | PTCARENOTE ---
PT continues to work on computer. TPN infusing.
[2023-07-03 15:50] VITALS: BP 123/58
[2023-07-03] MEDS: LOVENOX 40 MG SC (16:39)
[2023-07-03 17:25] LABS: Glucose - Point of Care 121 mg/dl (70-99)
[2023-07-03] MEDS: Parenteral Nutrition, Central 1580 IV (22:10)
[2023-07-03 22:45] VITALS: BP 134/68
--- NOTE | 2023-07-03 23:46 | PTCARENOTE ---
Patient received from previous RN r/t room change. Patient with TPN infusing through right upper arm double lumen PICC. Patient denies any pain. KEATON drain to left side of abdomen intact, small amount of green/brown drainage noted in bulb dressing
CDI. Will monitor.
[2023-07-04 00:10] LABS: Glucose - Point of Care 113 mg/dl (70-99)
[2023-07-04 03:35] VITALS: BMI 22.8
[2023-07-04] MEDS: UNASYN IV ×4 (04:00→21:13)
[2023-07-04 05:45] LABS: Glucose - Point of Care 113 mg/dl (70-99)
[2023-07-04 06:40] LABS: % Basophils 0.7 % (0-2); % Eosinophils 3.3 % (0-6); % Immature Granulocytes 0.7 % (0-0.5); % Lymphocytes 21.9 % (20.5-51.1); % Monocytes 10.2 % (1.7-9.3); % Neutrophils 63.2 % (42.2-75.2); Absolute Eosinophils 0.2 10^3/uL (0-0.7); Absolute Lymphocytes 1.2 10^3/uL (1.2-3.4); Absolute Monocytes 0.6 10^3/uL (0.1-0.6); Absolute Neutrophils 3.4 10^3/uL (1.4-6.5); Hematocrit 34.5 % (39.0-52.0); Hemoglobin 11.9 g/dL (13.0-18.0); Mean Corp Hgb Conc. 34.5 g/dL (33.0-37.0); Mean Corpuscular Hgb 31.8 pg (27.0-31.0); Mean Corpuscular Volume 92.2 fL (80.0-94.0); Mean Platelet Volume 9.5 fL (7.4-10.4); Nucleated Red Blood Cells % 0 % (-); Platelet Count 375 10^3/uL (130-400); Red Blood Cell Count 3.74 10^6/uL (4.70-6.10); Red Cell Dist. Width 11.9 % (11.5-14.5); White Blood Cell Count 5.4 10^3/uL (4.8-10.8)
[2023-07-04 07:00] VITALS: BP 149/79
[2023-07-04 07:44] LABS: ALT (SGPT) 24 U/L (0-50); AST (SGOT) 26 U/L (17-59); Albumin 3.1 g/dl (3.5-5.0); Alkaline Phosphatase 81 U/L (38-126); Blood Urea Nitrogen 10 mg/dl (9-20); Calcium 8.7 mg/dl (8.4-10.2); Carbon Dioxide 29 mmol/L (22-30); Chloride 106 mmol/L (98-107); Estimated Creatinine Clearance 104 ml/min; Glucose 115 mg/dl (70-99); Magnesium 2.3 mg/dl (1.6-2.3); Phosphorus 3.6 mg/dl (2.5-4.5); Potassium 4.3 mmol/L (3.5-5.1); Sodium 138 mmol/L (135-145); Total Bilirubin 0.4 mg/dl (0.2-1.3); Total Protein 5.8 g/dl (6.3-8.2); Triglycerides 144 mg/dl (10-149); eGFR > 60.00
[2023-07-04] MEDS: NSS (PRESERVATIVE FREE) 10 ML IV (08:20)
[2023-07-04] MEDS: PROTONIX IV 40 MG IV (08:20)
--- NOTE | 2023-07-04 08:47 | W.PN.GS2 ---
Today's Communication / Plan
-
-Will start low residue diet today. TPN reordered, however if he is able to tolerate the low residue diet with minimal increase in drain output then we will be able to stop the TPN going forward.
-Continue antibiotics per ID. Appreciate recs.
-Continue flushing KEATON twice daily with 10 cc of saline.
-Okay to begin dispo planning. Needs drain teaching. PPI, antibiotics, +/- TPN on discharge
-Patient will need IR drain injection study which we can schedule outpatient in ~1 week. Anticipated surgery in 4 to 6 weeks. Patient will follow-up with Dr. Monique
Assessment / Plan
-
Assessment: 77M with small bowel perforation of undetermined chronicity/etiology and associated contained intra-abdominal fluid collection
s/p IR drainage 06/28/2023: with enteric contents in the drain indicative of ECF. Thankfully this has remained a low output ECF on clear liquids.
-Will start low residue diet today. TPN reordered, however if he is able to tolerate the low residue diet with minimal increase in drain output then we will be able to stop the TPN going forward.
-Continue antibiotics per ID. Appreciate recs.
-Continue flushing KEATON twice daily with 10 cc of saline.
-Okay to begin dispo planning. Needs drain teaching. PPI, antibiotics, +/- TPN on discharge
-Patient will need IR drain injection study which we can schedule outpatient in ~1 week. Anticipated surgery in 4 to 6 weeks. Patient will follow-up with Dr. Monique
Time Spent
Total Time Spent with Patient (in minutes): 15
Subjective Data
-
Date of Service: July 04, 2023
Interval Events:
No acute events overnight. Slept well. Pain 'much better'. Denies Nausea/Vomiting, +bowel function. Tolerating clear liquid diet. Minimal output from the drain.
Objective Data
-
Intake and Output
07/03/23 07/04/2324
06:59 06:59 06:59
Intake Total 1820 / 1820 490 / 490
Output Total 1984 1685 / 1685
Balance -165 / -165 -1195 / -1195
Intake:
Oral fluids 780 / 780 480 / 480
IV piggybacks 240 / 240
TPN/PPN 790 / 790
Amount instilled into Drain (
Total)
Jaswinder-Jovel
Output:
Drain Output (Total)
Jaswinder-Jovel
Urine, Graham 600 / 600
Urine, Voided 1375 / 1375 1675 / 1675
Other:
Number of approximated MODERATE 2
amounts of urine
Vital Signs
Temp Pulse Resp BP Pulse Ox
97.6 F 74 18 149/79 98
07/04/23 07:00 07/04/23 07:00 07/04/23 07:00 07/04/23 07:00 07/04/23 07:00
Lab Results
07/04/23 06:22
07/04/23 07:02
Calcium 8.7 mg/dl (8.4-10.2) 07/04/23 07:02
Phosphorus 3.6 mg/dl (2.5-4.5) 07/04/23 07:02
Magnesium 2.3 mg/dl (1.6-2.3) 07/04/23 07:02
Total Bilirubin 0.4 mg/dl (0.2-1.3) 07/04/23 07:02
AST 26 U/L (17-59) 07/04/23 07:02
ALT 24 U/L (0-50) 07/04/23 07:02
Alkaline Phosphatase 81 U/L (38-126) 07/04/23 07:02
Total Protein 5.8 g/dl (6.3-8.2) L 07/04/23 07:02
Albumin 3.1 g/dl (3.5-5.0) L 07/04/23 07:02
Physical Exam
-
GENERAL/NEURO: Awake, Alert, no distress
CHEST: Unlabored breathing on RA
ABDOMEN: Soft, Non-Tender, Non-Distended, IR drain with enteric contents
--- NOTE | 2023-07-04 11:25 | W.PN.HOSP.TC ---
Today's Communication/Plan
-
Monitor vital signs and see plan
Trial of low residue diet
Continue with TPN per surgery
Continue with antibiotics
Assessment / Plan
Assessment / Plan
# Sepsis (fever, tachypnea) secondary to intra-abdominal abscess associated with enteritis/small contained perforation with EC fistula
#strep anginosus bacteremia 2/2 above
-CT abdomen pelvis shows complex rim-enhancing collection containing fluid and gas in anterior mid abdomen concerning for intra-abdominal abscess possibly associated with infectious/inflammatory enteritis or small contained perforation
-now on LRD
-DC IVF as started on TPN
-Remains on TPN.
-Zosyn switched to Unasyn.
-Surveillance cultures negative so far.
-start Protonix
-KEATON drain 10 cc seems to be decreasing on daily basis.Patient will need IR drain injection study. Will need to see if needs to go on TPN upon discharge
-Dilaudid for pain, Zofran for nausea as needed
-Fluid cultures from IR drainage with polymicrobial growth
-s/p IRAD drainage with drain placement. 50cc of purulent fluid sent.
-Patient ID recs.
# Mild hyponatremia
-resolved
Recent influenza infection
-Symptoms resolved
History of colon resection
Hyperlipidemia
-hold statin
DNR/DNI
DVT prophylaxis�lovenox
General: Well Developed, Well Nourished and No Apparent Distress
HEENT: Normocephalic and Atraumatic
Respiratory: Clear to Auscultation; Negative Wheezes or Rales
Cardiac: Regular Rhythm and S1/S2
GI: Soft, Nondistended, Normal Bowel Sounds, Tender and Other (KEATON drain with dark brown color output)
Genito-urinary: No Costovertebral Tender
Musculoskeletal: No Edema
Neuro: Awake, Alert, Oriented and AO x 3
Psych: Calm
Anticipated Discharge: > 48 hours
Subjective/Interval History
-
Date of Service: July 04, 2023
denies nausea
Objective Data
-
Labs:
Laboratory Results
07/04/23 07/04/23
06:22 07:02
WBC 5.4
Hgb 11.9 L
Hct 34.5 L
Plt Count 375
Sodium Cancelled 138
Potassium Cancelled 4.3
Chloride Cancelled 106
Carbon Dioxide Cancelled 29
BUN Cancelled 10
Creatinine Cancelled 0.5 L
Glucose Cancelled 115 H
Calcium Cancelled 8.7
Total Bilirubin Cancelled 0.4
AST Cancelled 26
ALT Cancelled 24
Alkaline Phosphatase Cancelled 81
Vital Signs:
Vital Signs
Temp Pulse Resp BP Pulse Ox
97.6 F 74 18 149/79 96
07/04/23 07:00 07/04/23 07:00 07/04/23 07:00 07/04/23 07:00 07/04/23 08:55
I&O
07/03/23 07/04/23 07/05/23
06:59 06:59 06:59
Intake Total 1820 / 1820 490 / 490
Output Total 1984 1685 / 1685
Balance -165 / -165 -1195 / -1195
[2023-07-04 12:00] LABS: Glucose - Point of Care 106 mg/dl (70-99)
--- NOTE | 2023-07-04 13:15 | W.PN.ID1 ---
Date of Service
Date of Service: July 04, 2023
Today's Communication
Continue antibiotics.
Assessment / Plan
Abdominal abscess
� Status post aspiration/drain placement. Cx E. coli, Viridans strep
Strep anginosus bacteremia - GI source
Abdominal pain
Recommendations:
Fever - resolved
Continue Unasyn 3 g IV every 6 hours while inpatient
KEATON drain output decreasing.
Repeat blood cultures neg to date
Has PICC. On TPN.
Suspect patient may need an outpatient course of IV antibiotics following discharge; if so, at D/C can likely be transition to once daily ertapenem at least through 07/13/23
Chief Complaint
-: Bacteremia and Other (bowel perforation)
Subjective / Review of Systems
Review of Systems: No Fever and No Chills
Vital Signs / Physical Exam
Vital Signs
Vital Signs
Temp Pulse Resp BP Pulse Ox
97.6 F 74 18 149/79 96
07/04/23 07:00 07/04/23 07:00 07/04/23 07:00 07/04/23 07:00 07/04/23 08:55
Physical Exam
Constitutional: No Acute Distress, Comfortable and Non-toxic
Cardiovascular: S1/S2; Negative S3/S4
Pulmonary: Non Labored
Gastrointestinal: Soft, Tender (minimal), Non Distended and Other (KEATON drain in place with scant drainage.)
Skin: Warm and Dry; Negative Rash or Jaundice
Neurological: Awake and Alert
Psychological: Calm
Objective Data
Lab Data
Lab Results
07/04/23 06:22
07/04/23 07:02
PT 15.7 Sec (11.4-14.6) H 06/28/23 10:12
INR 1.22 06/28/23 10:12
Estimated Creat Clear 104 ml/min 07/04/23 07:02
Lactic Acid 0.8 mmol/L (0.7-2.0) 06/27/23 17:28
Total Bilirubin 0.4 mg/dl (0.2-1.3) 07/04/23 07:02
AST 26 U/L (17-59) 07/04/23 07:02
ALT 24 U/L (0-50) 07/04/23 07:02
Alkaline Phosphatase 81 U/L (38-126) 07/04/23 07:02
Most recent labs reviewed.
Micro Results:
06/30/23 12:32 Blood Culture - Preliminary
Blood/Venous No Growth in 4 days- Final report to follow
06/30/23 12:50 Blood Culture - Preliminary
Blood/Venous No Growth in 4 days- Final report to follow
06/27/23 20:27 Blood Culture - Final
Blood/Venous Streptococcus anginosus
Gram Stain - Final
06/27/23 17:28 Blood Culture - Final
Blood/Venous No Growth - Final Report
06/28/23 18:14 Salmonella/Shigella Culture - Final
Feces/Stool No Salmonella, Shigella, Aeromonas or Plesiomonas species
isolated.
Campylobacter Culture - Final
No Campylobacter species isolated.
Shiga Toxin Test - Final
No E. coli Shiga Toxin 1 or 2 detected.
06/28/23 13:30 Wound Culture - Final
Abscess Escherichia coli
Viridans Streptococcus Group
Gram Stain - Final
06/27/23 20:27 Urine Culture - Final
Urine NO GROWTH
06/27/23 18:20 C. difficile GDH Antigen & Toxins - Final
Feces/Stool Negative for toxigenic C.difficile
Imaging:
06/27/2023 CT abdomen/pelvis with contrast: There is a complex rim-enhancing collection containing fluid and gas in the anterior mid abdomen concerning for intra-abdominal abscess. There is no enteric contrast material within the collection, no free
air elsewhere in the abdomen. Please see full dictation for additional detail.
[2023-07-04 15:00] VITALS: BP 141/67
--- NOTE | 2023-07-04 15:00 | PTCARENOTE ---
pt and sister have extensive questions about KEATON drain and D/C planning with drain. Surgery notified and shortly came up later at bedside, This nurse informed of pain and tenderness with flushing, reviewed color of KEATON output
--- NOTE | 2023-07-04 16:36 | CM ---
Patient seen at bedside, Patient resting, no questions at this time. Pending antibiotic needs, possible VN pending discharge recommendations per therapy. CM will continue to follow for discharge planning needs.
Plan; home with VN vs no needs watch for possible IV antibiotic needs.
[2023-07-04] MEDS: LOVENOX 40 MG SC (16:59)
[2023-07-04] MEDS: Parenteral Nutrition, Central 1580 IV (21:09)
[2023-07-04] MEDS: TYLENOL 650 MG PO (21:28)
[2023-07-04] MEDS: MELATONIN 3 MG PO (21:31)
[2023-07-04 23:20] VITALS: BP 129/68
[2023-07-05] MEDS: UNASYN IV ×4 (03:59→22:55)
[2023-07-05 05:41] VITALS: BMI 22.8
[2023-07-05 06:27] LABS: % Eosinophils 6.6 % (0-6); % Immature Granulocytes 1.4 % (0-0.5); % Lymphocytes 30.2 % (20.5-51.1); % Monocytes 10.1 % (1.7-9.3); % Neutrophils 50.7 % (42.2-75.2); Absolute Basophils 0.1 10^3/uL (0-0.2); Absolute Eosinophils 0.3 10^3/uL (0-0.7); Absolute Immature Granulocytes 0.1 10^3/uL (0-0.05); Absolute Lymphocytes 1.6 10^3/uL (1.2-3.4); Absolute Monocytes 0.5 10^3/uL (0.1-0.6); Absolute Neutrophils 2.6 10^3/uL (1.4-6.5); Hematocrit 36.4 % (39.0-52.0); Hemoglobin 12.2 g/dL (13.0-18.0); Mean Corp Hgb Conc. 33.5 g/dL (33.0-37.0); Mean Corpuscular Hgb 31.4 pg (27.0-31.0); Mean Corpuscular Volume 93.8 fL (80.0-94.0); Mean Platelet Volume 9.5 fL (7.4-10.4); Nucleated Red Blood Cells % 0 % (-); Platelet Count 373 10^3/uL (130-400); Red Blood Cell Count 3.88 10^6/uL (4.70-6.10); Red Cell Dist. Width 12.2 % (11.5-14.5); White Blood Cell Count 5.1 10^3/uL (4.8-10.8)
[2023-07-05 06:36] LABS: ALT (SGPT) 28 U/L (0-50); AST (SGOT) 29 U/L (17-59); Albumin 3.3 g/dl (3.5-5.0); Alkaline Phosphatase 82 U/L (38-126); Blood Urea Nitrogen 14 mg/dl (9-20); Carbon Dioxide 30 mmol/L (22-30); Chloride 107 mmol/L (98-107); Estimated Creatinine Clearance 104 ml/min; Glucose 106 mg/dl (70-99); Potassium 4.4 mmol/L (3.5-5.1); Sodium 139 mmol/L (135-145); Total Bilirubin 0.5 mg/dl (0.2-1.3); Total Protein 5.9 g/dl (6.3-8.2); eGFR > 60.00
[2023-07-05 07:31] VITALS: BP 124/70
[2023-07-05 07:43] LABS: Glucose - Point of Care 103 mg/dl (70-99)
[2023-07-05] MEDS: PROTONIX IV 40 MG IV (08:26)
[2023-07-05] MEDS: NSS (PRESERVATIVE FREE) 10 ML IV (08:27)
[2023-07-05] MEDS: FLUSH (NSS) 2 FLUSH IV (08:28)
--- NOTE | 2023-07-05 10:04 | W.PN.HOSP.TC ---
Today's Communication/Plan
-
monitor vitals
see plan
not eating much of LRD; added ensure
cw TPN per surgery
monitor drain
cw abx
Assessment / Plan
Assessment / Plan
# Sepsis (fever, tachypnea) secondary to intra-abdominal abscess associated with enteritis/small contained perforation with EC fistula
#strep anginosus bacteremia 2/[address]
-CT abdomen pelvis shows complex rim-enhancing collection containing fluid and gas in anterior mid abdomen concerning for intra-abdominal abscess possibly associated with infectious/inflammatory enteritis or small contained perforation
-now on LRD; not eating much though
-DC IVF as started on TPN
-Remains on TPN.
-Zosyn switched to Unasyn.
-Surveillance cultures negative so far.
-cw Protonix
-KEATON drain 15 cc overnight .Patient will need IR drain injection study. Will need to see if needs to go on TPN upon discharge
-Dilaudid for pain, Zofran for nausea as needed
-Fluid cultures from IR drainage with polymicrobial growth
-s/p IRAD drainage with drain placement. 50cc of purulent fluid sent.
-f/u ID recs; likely would need abx on dc
# Mild hyponatremia
-resolved
Recent influenza infection
-Symptoms resolved
History of colon resection
Hyperlipidemia
-hold statin
DNR/DNI
DVT prophylaxis�lovenox
General: Well Developed, Well Nourished and No Apparent Distress
HEENT: Normocephalic and Atraumatic
Respiratory: Clear to Auscultation; Negative Wheezes or Rales
Cardiac: Regular Rhythm and S1/S2
GI: Soft, Nondistended, Normal Bowel Sounds, Tender and Other (KEATON drain)
Genito-urinary: No Costovertebral Tender
Musculoskeletal: No Edema
Neuro: Awake, Alert, Oriented and AO x 3
Psych: Calm
Anticipated Discharge: 24 - 48 hours
Subjective/Interval History
-
Date of Service: July 05, 2023
denies pain
Objective Data
-
Labs:
Laboratory Results
07/05/23
05:56
WBC 5.1
Hgb 12.2 L
Hct 36.4 L
Plt Count 373
Sodium 139
Potassium 4.4
Chloride 107
Carbon Dioxide 30
BUN 14
Creatinine 0.5 L
Glucose 106 H
Calcium 9.0
Total Bilirubin 0.5
AST 29
ALT 28
Alkaline Phosphatase 82
Vital Signs:
Vital Signs
Temp Pulse Resp BP Pulse Ox
97.5 F 67 16 124/70 96
07/05/23 07:31 07/05/23 07:31 07/05/23 07:31 07/05/23 07:31 07/05/23 07:31
I&O
07/04/23 07/05/23 07/06/23
06:59 06:59 06:59
Intake Total 490 / 490 840 / 840
Output Total 1685 / 1685 2675 / 2675
Balance -1195 / -1195 -1835 / -1835
--- NOTE | 2023-07-05 10:28 | W.PN.GS2 ---
Today's Communication / Plan
-
-LRD, hold on renewing TPN for today
-Continue antibiotics per ID. Appreciate recs will need outpatient for 2 weeks.
-Continue flushing KEATON twice daily with 10 cc of saline.
-Okay to begin dispo planning. Needs drain teaching. PPI, antibiotics,
-Patient will need IR drain injection study which we can schedule outpatient in ~1 week. Anticipated surgery in 4 to 6 weeks. Patient will follow-up with Dr. Tyson after his IR study
Assessment / Plan
-
Assessment: 77M with small bowel perforation of undetermined chronicity/etiology and associated contained intra-abdominal fluid collection
S/p IR drainage 06/28/2023: with enteric contents in the drain indicative of ECF.
Thankfully this has remained a low output ECF on LRD.
-LRD, hold on renewing TPN for today
-Continue antibiotics per ID. Appreciate recs will need outpatient for 2 weeks.
-Continue flushing KEATON twice daily with 10 cc of saline.
-Okay to begin dispo planning. Needs drain teaching. PPI, antibiotics,
-Patient will need IR drain injection study which we can schedule outpatient in ~1 week. Anticipated surgery in 4 to 6 weeks. Patient will follow-up with Dr. Tyson after his IR study
-Sister updated
Subjective Data
-
Date of Service: July 05, 2023
Feels well, no complaints. Mild pain at KEATON insertion site. No nausea or emesis. No fevers. Passing flatus and BMs
Objective Data
-
Intake and Output
07/04/23 07/05/23 07/06/23
06:59 06:59 06:59
Intake Total 490 / 490 840 / 840
Output Total 1685 / 1685 2675 / 2675
Balance -1195 / -1195 -1835 / -1835
Intake:
Oral fluids 480 / 480 840 / 840
Amount instilled into Drain (
Total)
Jaswinder-Jovel
Output:
Drain Output (Total)
Jaswinder-Jovel
Urine, Voided 1675 / 1675 2650 / 2650
Other:
Number of approximated MODERATE 2
amounts of urine
Vital Signs
Temp Pulse Resp BP Pulse Ox
97.5 F 67 16 124/70 96
07/05/23 07:31 07/05/23 07:31 07/05/23 07:31 07/05/23 07:31 07/05/23 07:31
Lab Results
07/05/23 05:56
07/05/23 05:56
Calcium 9.0 mg/dl (8.4-10.2) 07/05/23 05:56
Phosphorus 3.6 mg/dl (2.5-4.5) 07/04/23 07:02
Magnesium 2.3 mg/dl (1.6-2.3) 07/04/23 07:02
Total Bilirubin 0.5 mg/dl (0.2-1.3) 07/05/23 05:56
AST 29 U/L (17-59) 07/05/23 05:56
ALT 28 U/L (0-50) 07/05/23 05:56
Alkaline Phosphatase 82 U/L (38-126) 07/05/23 05:56
Total Protein 5.9 g/dl (6.3-8.2) L 07/05/23 05:56
Albumin 3.3 g/dl (3.5-5.0) L 07/05/23 05:56
Physical Exam
-
Gen: NAD
Abd: soft, mild tenderness overlying KEATON, ND, KEATON with bilious outputs
[2023-07-05 12:05] LABS: Glucose - Point of Care 96 mg/dl (70-99)
--- NOTE | 2023-07-05 14:34 | CM ---
Patient seen at bedside. Patient requested [facility] referral following discussion of PAC options. Patient stated that he would be going home with no IV antibiotics or TPN. Patient diet has been changed to low residue diet per chart review. CM sent TT to
Liaison with [facility] and await update about acceptance. CM will continue to follow for discharge planning needs.
Plan; home with VN
--- NOTE | 2023-07-05 14:52 | W.PN.ID1 ---
Date of Service
Date of Service: July 05, 2023
Today's Communication
Continue antibiotics. See below�
Assessment / Plan
Abdominal abscess
� Status post aspiration/drain placement. Cx E. coli, Viridans strep
Strep anginosus bacteremia - GI source
Suspected low output ECF per surgery
Abdominal pain
Recommendations:
Fever - resolved
Continue Unasyn 3 g IV every 6 hours while inpatient
KEATON drain output decreasing.
Repeat blood cultures neg to date
Surgical notes reviewed, with plan for surgery in approximately 3 weeks.
At discharge, can transition to oral Augmentin 875 mg twice daily to continue at least for 2 weeks, and possibly up to surgery.
Chief Complaint
-: Bacteremia and Other (bowel perforation)
Subjective / Review of Systems
Review of Systems: No Fever, No Chills and No Abdominal Pain
Vital Signs / Physical Exam
Vital Signs
Vital Signs
Temp Pulse Resp BP Pulse Ox
97.5 F 67 16 124/70 96
07/05/23 07:31 07/05/23 07:31 07/05/23 07:31 07/05/23 07:31 07/05/23 07:31
Physical Exam
Constitutional: No Acute Distress, Comfortable and Non-toxic
Cardiovascular: S1/S2; Negative S3/S4
Pulmonary: Clear and Non Labored
Gastrointestinal: Soft, Non Tender, Non Distended and Other (KEATON in place with seropurulent fluid.)
Neurological: Awake and Alert
Psychological: Calm
Objective Data
Lab Data
Lab Results
07/05/23 05:56
07/05/23 05:56
PT 15.7 Sec (11.4-14.6) H 06/28/23 10:12
INR 1.22 06/28/23 10:12
Estimated Creat Clear 104 ml/min 07/05/23 05:56
Lactic Acid 0.8 mmol/L (0.7-2.0) 06/27/23 17:28
Total Bilirubin 0.5 mg/dl (0.2-1.3) 07/05/23 05:56
AST 29 U/L (17-59) 07/05/23 05:56
ALT 28 U/L (0-50) 07/05/23 05:56
Alkaline Phosphatase 82 U/L (38-126) 07/05/23 05:56
Most recent labs reviewed.
Micro Results:
06/30/23 12:50 Blood Culture - Final
Blood/Venous No Growth - Final Report
06/30/23 12:32 Blood Culture - Final
Blood/Venous No Growth - Final Report
06/27/23 20:27 Blood Culture - Final
Blood/Venous Streptococcus anginosus
Gram Stain - Final
06/27/23 17:28 Blood Culture - Final
Blood/Venous No Growth - Final Report
06/28/23 18:14 Salmonella/Shigella Culture - Final
Feces/Stool No Salmonella, Shigella, Aeromonas or Plesiomonas species
isolated.
Campylobacter Culture - Final
No Campylobacter species isolated.
Shiga Toxin Test - Final
No E. coli Shiga Toxin 1 or 2 detected.
06/28/23 13:30 Wound Culture - Final
Abscess Escherichia coli
Viridans Streptococcus Group
Gram Stain - Final
06/27/23 20:27 Urine Culture - Final
Urine NO GROWTH
06/27/23 18:20 C. difficile GDH Antigen & Toxins - Final
Feces/Stool Negative for toxigenic C.difficile
Imaging:
06/27/2023 CT abdomen/pelvis with contrast: There is a complex rim-enhancing collection containing fluid and gas in the anterior mid abdomen concerning for intra-abdominal abscess. There is no enteric contrast material within the collection, no free
air elsewhere in the abdomen. Please see full dictation for additional detail.
[2023-07-05 15:00] VITALS: BP 136/66
[2023-07-05 16:59] LABS: Glucose - Point of Care 109 mg/dl (70-99)
[2023-07-05] MEDS: LOVENOX 40 MG SC (17:07)
[2023-07-05 21:28] LABS: Glucose - Point of Care 104 mg/dl (70-99)
[2023-07-05] MEDS: ROBITUSSIN 200 MG PO (21:49)
[2023-07-05] MEDS: MELATONIN 3 MG PO (21:49)
[2023-07-05 23:10] VITALS: BP 130/67
[2023-07-05 23:56] VITALS: BP 130/67
[2023-07-06] MEDS: UNASYN IV ×4 (03:29→21:40)
[2023-07-06 06:00] VITALS: BMI 22.8
[2023-07-06 06:14] LABS: % Basophils 0.8 % (0-2); % Eosinophils 6.7 % (0-6); % Immature Granulocytes 2.3 % (0-0.5); % Lymphocytes 30.8 % (20.5-51.1); % Monocytes 10.1 % (1.7-9.3); % Neutrophils 49.3 % (42.2-75.2); Absolute Eosinophils 0.4 10^3/uL (0-0.7); Absolute Immature Granulocytes 0.1 10^3/uL (0-0.05); Absolute Lymphocytes 1.6 10^3/uL (1.2-3.4); Absolute Monocytes 0.5 10^3/uL (0.1-0.6); Absolute Neutrophils 2.6 10^3/uL (1.4-6.5); Hematocrit 37.4 % (39.0-52.0); Hemoglobin 12.4 g/dL (13.0-18.0); Mean Corp Hgb Conc. 33.2 g/dL (33.0-37.0); Mean Corpuscular Hgb 31.6 pg (27.0-31.0); Mean Corpuscular Volume 95.2 fL (80.0-94.0); Mean Platelet Volume 9.5 fL (7.4-10.4); Nucleated Red Blood Cells % 0 % (-); Platelet Count 347 10^3/uL (130-400); Red Blood Cell Count 3.93 10^6/uL (4.70-6.10); Red Cell Dist. Width 12.3 % (11.5-14.5); White Blood Cell Count 5.2 10^3/uL (4.8-10.8)
[2023-07-06 06:32] LABS: ALT (SGPT) 26 U/L (0-50); AST (SGOT) 25 U/L (17-59); Albumin 3.2 g/dl (3.5-5.0); Alkaline Phosphatase 80 U/L (38-126); Blood Urea Nitrogen 19 mg/dl (9-20); Calcium 9.3 mg/dl (8.4-10.2); Carbon Dioxide 27 mmol/L (22-30); Chloride 103 mmol/L (98-107); Estimated Creatinine Clearance 103 ml/min; Glucose 98 mg/dl (70-99); Potassium 4.3 mmol/L (3.5-5.1); Prealbumin (Transthyretin) 24.8 mg/dl (17.6-36.0); Sodium 139 mmol/L (135-145); Total Bilirubin 0.6 mg/dl (0.2-1.3); Total Protein 5.9 g/dl (6.3-8.2); eGFR > 60.00
[2023-07-06 07:00] VITALS: BP 131/66
[2023-07-06] MEDS: PROTONIX 40 MG PO (07:37)
[2023-07-06 07:59] LABS: Glucose - Point of Care 87 mg/dl (70-99)
--- NOTE | 2023-07-06 10:15 | CM ---
Patient seen at bedside. Patient physician indicated that patient was for discharge tomorrow. CM will continue to follow for discharge planning needs.
Plan; home with VN
[2023-07-06] MEDS: FLUSH (NSS) 2 FLUSH IV ×3 (10:25→15:46)
--- NOTE | 2023-07-06 10:54 | W.PN.HOSP.TC ---
Today's Communication/Plan
-
Start KEATON drain teaching
Surgery recs
P.o. antibiotics on discharge
Start dispo planning
Assessment / Plan
Assessment / Plan
# Sepsis (fever, tachypnea) secondary to intra-abdominal abscess associated with enteritis/small contained perforation with EC fistula
# strep anginosus bacteremia 2/2 above
-CT abdomen pelvis shows complex rim-enhancing collection containing fluid and gas in anterior mid abdomen concerning for intra-abdominal abscess possibly associated with infectious/inflammatory enteritis or small contained perforation
-Transition to low residue diet. Monitor for diet tolerance.
-IV fluid discontinued. TPN discontinued. Monitor p.o. intake.
-Zosyn switched to Unasyn.
-Surveillance cultures negative so far.
-cw Protonix
-Patient will be discharged with KEATON drain. Discussed with RN at the patient requires twice daily flushing. VN on discharge.
-Dilaudid for pain, Zofran for nausea as needed
-Fluid cultures from IR drainage with polymicrobial growth
-s/p IRAD drainage with drain placement. 50cc of purulent fluid sent on admission.
-f/u ID recs; plan for Augmentin full dose twice daily for 2 weeks and possibly up to surgery
-Per surgery patient will need IR drain injection study in 1 week. Defer surgical timing to general surgery.
# Mild hyponatremia
-resolved
Recent influenza infection
-Symptoms resolved
History of colon resection
Hyperlipidemia
-hold statin
DNR/DNI
DVT prophylaxis�lovenox
Anticipated Discharge: Within 24 hours
Subjective/Interval History
-
Date of Service: July 06, 2023
Patient tolerating diet
Objective Data
-
Labs:
Laboratory Results
07/06/23
05:57
WBC 5.2
Hgb 12.4 L
Hct 37.4 L
Plt Count 347
Sodium 139
Potassium 4.3
Chloride 103
Carbon Dioxide 27
BUN 19
Creatinine 0.5 L
Glucose 98
Calcium 9.3
Total Bilirubin 0.6
AST 25
ALT 26
Alkaline Phosphatase 80
Vital Signs:
Vital Signs
Temp Pulse Resp BP Pulse Ox
97.3 F 66 18 131/66 98
07/06/23 07:00 07/06/23 07:00 07/06/23 07:00 07/06/23 07:00 07/06/23 07:00
I&O
07/05/23 07/06/23 07/07/23
06:59 06:59 06:59
Intake Total 840 / 840 1390 / 1390
Output Total 2675 / 2675 1120 / 1120
Balance -1835 / -1835 270 / 270
Physical Exam
-
General: Well Developed, Well Nourished and No Apparent Distress
HEENT: Normocephalic and Atraumatic
Respiratory: Clear to Auscultation; Negative Wheezes or Rales
Cardiac: Regular Rhythm and S1/S2
GI: Soft, Nondistended, Normal Bowel Sounds, Tender and Other (KEATON drain with dark brown color output)
Genito-urinary: No Costovertebral Tender
Musculoskeletal: No Edema
Neuro: Awake, Alert, Oriented and AO x 3
Psych: Calm
[2023-07-06] MEDS: DILAUDID 0.5 MG IV (12:29)
--- NOTE | 2023-07-06 13:15 | VNURNOTE ---
Home Health Liaison met with patient at 1150 to discuss [facility] nurse/therapy, visits, schedule and homebound status. Patient is agreeable and understands that visits at home will be 2-3 x per week to assess and teach medical management and KEATON drain
care. Patient understands he will need to learn flushing prior to discharge as VN comes 2-3x per week not daily. TT sent requesting Rx for NSS flushes at discharge.
[facility] brochure provided with contact information. Patient is aware that VN will contact him for start of care in 1-2 days after discharge from .
[facility] referral completed in [facility].
--- NOTE | 2023-07-06 14:56 | W.PN.GS2 ---
Today's Communication / Plan
-
-CT abdomen/pelvis with PO and IV contrast
-Wound care consult
Assessment / Plan
-
Assessment: 77M with small bowel perforation of undetermined chronicity/etiology and associated contained intra-abdominal fluid collection
S/p IR drainage 06/28/2023: with enteric contents in the drain indicative of ECF.
Thankfully this has remained a low output ECF on LRD. Plan for repeat CT scan to evaluate size of collection and verify adequate drainage with IR catheter. Wound care consult for skin barrier and dressing needs.
-CT abdomen/pelvis with PO and IV contrast
-Wound care consult
-LRD
-Continue antibiotics per ID. Appreciate recs will need outpatient for 2 weeks.
-Continue flushing KEATON twice daily with 5 cc of saline.
-Okay to begin dispo planning. Needs drain teaching. PPI, antibiotics,
-Anticipated surgery in 4 to 6 weeks. Outpatient follow-up with Jah in 1-2 weeks post-discharge
Subjective Data
-
Date of Service: July 06, 2023
Report some pain with motion during. Nursing noted to have some excoriation of the skin due to leakage around his artery catheter. No nausea or vomiting. Continues to pass flatus and stools. No fevers.
Objective Data
-
Intake and Output
07/05/23 07/06/23 07/07/23
06:59 06:59 06:59
Intake Total 840 / 840 1390 / 1390
Output Total 2675 / 2675 1120 / 1120
Balance -1835 / -1835 270 / 270
Intake:
Oral fluids 840 / 840 1380 / 1380
Amount instilled into Drain (
Total)
Elda
Output:
Drain Output (Total) 25 / 25 20 / 20
Jaswinder-Jovel
Urine, Voided 2650 / 2650 1100 / 1100
Vital Signs
Temp Pulse Resp BP Pulse Ox
97.3 F 66 18 131/66 98
07/06/23 07:00 07/06/23 07:00 07/06/23 07:00 07/06/23 07:00 07/06/23 07:00
Lab Results
07/06/23 05:57
07/06/23 05:57
Calcium 9.3 mg/dl (8.4-10.2) 07/06/23 05:57
Phosphorus 3.6 mg/dl (2.5-4.5) 07/04/23 07:02
Magnesium 2.3 mg/dl (1.6-2.3) 07/04/23 07:02
Total Bilirubin 0.6 mg/dl (0.2-1.3) 07/06/23 05:57
AST 25 U/L (17-59) 07/06/23 05:57
ALT 26 U/L (0-50) 07/06/23 05:57
Alkaline Phosphatase 80 U/L (38-126) 07/06/23 05:57
Total Protein 5.9 g/dl (6.3-8.2) L 07/06/23 05:57
Albumin 3.2 g/dl (3.5-5.0) L 07/06/23 05:57
Physical Exam
-
Gen: NAD
Abd: soft, tender at IR drain insertion site, mild skin excoriation, ND, non-peritoneal, IR drain with bilious output
[2023-07-06 15:00] VITALS: BP 121/61
--- NOTE | 2023-07-06 15:40 | VATNOTE ---
/ MD wants to hold off on pulling picc. patient having repeat CT if there is abnormal and large abscess -diet may be stopped
--- NOTE | 2023-07-06 15:42 | WOUNDNOTE ---
IR drain insertion site
--- NOTE | 2023-07-06 15:44 | WOUNDNOTE ---
[employer] [employer] RN NOTE: Reviewed chart, met with patient. Patient has drainage around IR tube that is irritating skin. Skin was cleaned with normal saline and no-sting barrier wipe was applied around wound and allowed to dry. A slit was cut in alginate and
placed around drain, then cover with silicone border foam. Patient will have VN at discharge and is learning to drain care for home. Patient with recent weigh loss and poor appetite r/t recent GI issues. Now tolerating low residue diet with Ensure.
Patient declined to turn at the time due to abdominal tenderness. He is on a [employer] Accumax and states he is able to turn and ambulate to . A CT of pelvis is planned. KRYSTAL Bond given update. Will continue to follow as needed.
[2023-07-06] MEDS: OMNIPAQUE 50 ML PO (15:45)
[2023-07-06] MEDS: TYLENOL 650 MG PO ×2 (15:45→21:28)
--- NOTE | 2023-07-06 15:57 | W.PN.ID1 ---
Date of Service
Date of Service: July 06, 2023
Today's Communication
Continue antibiotics. See below�
Assessment / Plan
Abdominal abscess
� Status post aspiration/drain placement. Cx E. coli, Viridans strep
Strep anginosus bacteremia - GI source
Suspected low output ECF per surgery
Abdominal pain
Recommendations:
Fever - resolved
Continue Unasyn 3 g IV every 6 hours while inpatient
KEATON drain output decreasing.
Repeat blood cultures neg to date
Surgical notes reviewed, with plan for surgery in approximately 3 weeks.
At discharge, can transition to oral Augmentin 875 mg twice daily to continue for 2 weeks.
For potential surgery in 3 weeks.
����������������������������������������������������������
Chief Complaint
-: Bacteremia and Other (bowel perforation)
Subjective / Review of Systems
Patient seen and examined. Drain still in place with some output. Denies abdominal pain.
Review of Systems: No Fever and No Chills
Vital Signs / Physical Exam
Vital Signs
Vital Signs
Temp Pulse Resp BP Pulse Ox
97.3 F 66 18 131/66 98
07/06/23 07:00 07/06/23 07:00 07/06/23 07:00 07/06/23 07:00 07/06/23 07:00
Physical Exam
Constitutional: No Acute Distress, Comfortable and Non-toxic
Eyes: Sclera Anicteric
Pulmonary: Non Labored
Gastrointestinal: Soft, Non Tender, Non Distended, Normal Bowel Sounds, No Rebound and Other (Anterior KEATON in place with seropurulent drainage.)
Neurological: Awake and Alert
Psychological: Calm
Objective Data
Lab Data
Lab Results
07/06/23 05:57
07/06/23 05:57
PT 15.7 Sec (11.4-14.6) H 06/28/23 10:12
INR 1.22 06/28/23 10:12
Estimated Creat Clear 103 ml/min 07/06/23 05:57
Lactic Acid 0.8 mmol/L (0.7-2.0) 06/27/23 17:28
Total Bilirubin 0.6 mg/dl (0.2-1.3) 07/06/23 05:57
AST 25 U/L (17-59) 07/06/23 05:57
ALT 26 U/L (0-50) 07/06/23 05:57
Alkaline Phosphatase 80 U/L (38-126) 07/06/23 05:57
Most recent labs reviewed.
Micro Results:
06/30/23 12:50 Blood Culture - Final
Blood/Venous No Growth - Final Report
06/30/23 12:32 Blood Culture - Final
Blood/Venous No Growth - Final Report
06/27/23 20:27 Blood Culture - Final
Blood/Venous Streptococcus anginosus
Gram Stain - Final
06/27/23 17:28 Blood Culture - Final
Blood/Venous No Growth - Final Report
06/28/23 18:14 Salmonella/Shigella Culture - Final
Feces/Stool No Salmonella, Shigella, Aeromonas or Plesiomonas species
isolated.
Campylobacter Culture - Final
No Campylobacter species isolated.
Shiga Toxin Test - Final
No E. coli Shiga Toxin 1 or 2 detected.
06/28/23 13:30 Wound Culture - Final
Abscess Escherichia coli
Viridans Streptococcus Group
Gram Stain - Final
06/27/23 20:27 Urine Culture - Final
Urine NO GROWTH
06/27/23 18:20 C. difficile GDH Antigen & Toxins - Final
Feces/Stool Negative for toxigenic C.difficile
Imaging:
06/27/2023 CT abdomen/pelvis with contrast: There is a complex rim-enhancing collection containing fluid and gas in the anterior mid abdomen concerning for intra-abdominal abscess. There is no enteric contrast material within the collection, no free
air elsewhere in the abdomen. Please see full dictation for additional detail.
Care Review
Plan reviewed with: Physician (Gen. Surgery)
[2023-07-06] MEDS: LOVENOX 40 MG SC (18:04)
[2023-07-06 23:00] VITALS: BP 137/67
[2023-07-07] MEDS: UNASYN IV ×2 (03:35→10:08)
[2023-07-07 04:27] LABS: % Basophils 1.1 % (0-2); % Eosinophils 7.8 % (0-6); % Immature Granulocytes 1.5 % (0-0.5); % Lymphocytes 36.5 % (20.5-51.1); % Monocytes 8.9 % (1.7-9.3); % Neutrophils 44.2 % (42.2-75.2); Absolute Basophils 0.1 10^3/uL (0-0.2); Absolute Eosinophils 0.4 10^3/uL (0-0.7); Absolute Immature Granulocytes 0.1 10^3/uL (0-0.05); Absolute Lymphocytes 1.7 10^3/uL (1.2-3.4); Absolute Monocytes 0.4 10^3/uL (0.1-0.6); Absolute Neutrophils 2.1 10^3/uL (1.4-6.5); Hematocrit 36.5 % (39.0-52.0); Hemoglobin 12.1 g/dL (13.0-18.0); Mean Corp Hgb Conc. 33.2 g/dL (33.0-37.0); Mean Corpuscular Hgb 31.4 pg (27.0-31.0); Mean Corpuscular Volume 94.8 fL (80.0-94.0); Mean Platelet Volume 9.6 fL (7.4-10.4); Nucleated Red Blood Cells % 0 % (-); Platelet Count 311 10^3/uL (130-400); Red Blood Cell Count 3.85 10^6/uL (4.70-6.10); Red Cell Dist. Width 12.4 % (11.5-14.5); White Blood Cell Count 4.6 10^3/uL (4.8-10.8)
[2023-07-07 04:47] LABS: ALT (SGPT) 29 U/L (0-50); AST (SGOT) 26 U/L (17-59); Albumin 3.4 g/dl (3.5-5.0); Alkaline Phosphatase 93 U/L (38-126); Blood Urea Nitrogen 17 mg/dl (9-20); Calcium 9.1 mg/dl (8.4-10.2); Carbon Dioxide 33 mmol/L (22-30); Chloride 104 mmol/L (98-107); Estimated Creatinine Clearance 103 ml/min; Glucose 91 mg/dl (70-99); Potassium 4.3 mmol/L (3.5-5.1); Sodium 137 mmol/L (135-145); Total Bilirubin 0.5 mg/dl (0.2-1.3); eGFR > 60.00
[2023-07-07 07:00] VITALS: BP 111/89
--- NOTE | 2023-07-07 08:34 | W.PN.GS2 ---
Today's Communication / Plan
-
-OK for DC from surgical perspective, patient to review with sister, tentative plan for tomorrow
-LRD with supplement shakes
-Outpatient antibiotics
-Flush drain daily, VNA
Assessment / Plan
-
Assessment: 77M with small bowel perforation of undetermined chronicity/etiology and associated contained intra-abdominal fluid collection
S/p IR drainage 06/28/2023: with enteric contents in the drain indicative of ECF.
Repeat CT 07/06/2023: collapsed abscess cavity, no un-drained collections
Thankfully this has remained a low output ECF on LRD.
-LRD
-Continue antibiotics per ID. Appreciate recs will need outpatient for 2 weeks.
-Continue flushing KEATON daily with 5 cc of saline.
-Appreciate wound care recs
-Okay to begin dispo planning. Needs drain teaching. PPI, antibiotics,
-Anticipated surgery in 4 to 6 weeks. Outpatient follow-up with Jah in 2 weeks post-discharge
Subjective Data
-
Date of Service: July 07, 2023
No complaints or changes. No fevers. Tolerating diet, passing flatus and stools.
Objective Data
-
Intake and Output
07/06/23 07/07/23 07/08/23
06:59 06:59 06:59
Intake Total 1390 / 1390 910 / 910
Output Total 1120 / 1120 255 / 255
Balance 270 / 270 655 / 655
Intake:
Oral fluids 1380 / 1380 900 / 900
Amount instilled into Drain (
Total)
Jaswinder-Jovel
Output:
Drain Output (Total) 30 30
Jaswinder-Jovel
Urine, Voided 1100 / 1100 225 / 225
Other:
Number of approximated MODERATE 4
amounts of urine
Vital Signs
Temp Pulse Resp BP Pulse Ox
97.5 F 63 18 137/67 98
07/06/23 23:00 07/06/23 23:00 07/06/23 23:00 07/06/23 23:00 07/06/23 23:00
Lab Results
07/07/23 04:01
07/07/23 04:01
Calcium 9.1 mg/dl (8.4-10.2) 07/07/23 04:01
Phosphorus 3.6 mg/dl (2.5-4.5) 07/04/23 07:02
Magnesium 2.3 mg/dl (1.6-2.3) 07/04/23 07:02
Total Bilirubin 0.5 mg/dl (0.2-1.3) 07/07/23 04:01
AST 26 U/L (17-59) 07/07/23 04:01
ALT 29 U/L (0-50) 07/07/23 04:01
Alkaline Phosphatase 93 U/L (38-126) 07/07/23 04:01
Total Protein 6.0 g/dl (6.3-8.2) L 07/07/23 04:01
Albumin 3.4 g/dl (3.5-5.0) L 07/07/23 04:01
Physical Exam
-
Gen: NAD
Abd: soft, mild tenderness around IR drain, ND, IR drain with bilious output, mild skin excoriation
[2023-07-07] MEDS: PROTONIX 40 MG PO (10:07)
[2023-07-07] MEDS: MIRALAX 17 GRAMS PO (10:08)
[2023-07-07] MEDS: SENOKOT-S 1 TABLET PO (10:08)
--- NOTE | 2023-07-07 10:11 | W.PN.HOSP.TC ---
Today's Communication/Plan
-
po abx
dc picc
dc today
Assessment / Plan
Assessment / Plan
# Sepsis (fever, tachypnea) secondary to intra-abdominal abscess associated with enteritis/small contained perforation with EC fistula
# strep anginosus bacteremia 2/2 above
-CT abdomen pelvis shows complex rim-enhancing collection containing fluid and gas in anterior mid abdomen concerning for intra-abdominal abscess possibly associated with infectious/inflammatory enteritis or small contained perforation
-Transition to low residue diet. Monitor for diet tolerance.
-IV fluid discontinued. TPN discontinued. Monitor p.o. intake. Tolerating LRD.
-Zosyn switched to Unasyn.
-Surveillance cultures negative so far.
-cw Protonix
-Patient will be discharged with KEATON drain. VN on discharge.
-Dilaudid for pain, Zofran for nausea as needed
-Fluid cultures from IR drainage with polymicrobial growth
-s/p IRAD drainage with drain placement. 50cc of purulent fluid sent on admission.
-f/u ID recs; plan for Augmentin full dose twice daily for 2 weeks.
-OP follow up with surgery in 2 week then possible surgery in 4-6 weeks.
# Mild hyponatremia
-resolved
Recent influenza infection
-Symptoms resolved
History of colon resection
Hyperlipidemia
-restart statin
DNR/DNI
DVT prophylaxis�lovenox
More than 30 minutes spent in discharge including
Final examination of the patient
Summarizing hospital stay
Instructions for continuing care to all relevant caregivers
Preparation of discharge records, prescriptions, and referral forms
Total time spent (in minutes): 45
Anticipated Discharge: Today
Subjective/Interval History
-
Date of Service: July 07, 2023
states had bm yesterday and again this am
Objective Data
-
Labs:
Laboratory Results
07/07/23
04:01
WBC 4.6 L
Hgb 12.1 L
Hct 36.5 L
Plt Count 311
Sodium 137
Potassium 4.3
Chloride 104
Carbon Dioxide 33 H
BUN 17
Creatinine 0.6 L
Glucose 91
Calcium 9.1
Total Bilirubin 0.5
AST 26
ALT 29
Alkaline Phosphatase 93
Vital Signs:
Vital Signs
Temp Pulse Resp BP Pulse Ox
97.5 F 73 16 111/89 99
07/07/23 07:00 07/07/23 07:00 07/07/23 07:00 07/07/23 07:00 07/07/23 07:00
I&O
07/06/23 07/07/23 07/08/23
06:59 06:59 06:59
Intake Total 1390 / 1390 910 / 910
Output Total 1120 / 1120 255 / 255
Balance 270 / 270 655 / 655
Physical Exam
-
General: Well Developed, Well Nourished and No Apparent Distress
HEENT: Normocephalic and Atraumatic
Respiratory: Clear to Auscultation; Negative Wheezes or Rales
Cardiac: Regular Rhythm and S1/S2
GI: Soft, Nondistended, Normal Bowel Sounds, Tender and Other (KEATON drain with dark brown color output)
Genito-urinary: No Costovertebral Tender
Musculoskeletal: No Edema
Neuro: Awake, Alert, Oriented and AO x 3
Psych: Calm
--- NOTE | 2023-07-07 11:32 | W.DCSUMMARY ---
Discharge Summary
Discharge Data
Date of Admission: 06/27/23
Date of Discharge: 07/07/23
-
Pending Results: No
Hospital Course
77-year-old male past medical history of colonic resection, hyperlipidemia who is presenting with abdominal pain. Patient with CT abdomen pelvis on admission showed complex rim-enhancing collection containing fluid and gas in anterior mid abdomen
concerning for intra-abdominal abscess possibly associated with infectious/inflammatory enteritis or small contained perforation. s/p IRAD drainage with drain placement. 50cc of purulent fluid sent on admission. Patient was on broad-spectrum
antibiotics. Infectious disease was consulted. Patient blood culture positive for strep anginosus. Zosyn was transitioned to Unasyn. Infectious disease was following along. Surveillance cultures were negative. Patient was started on PPI. ROMIE
drain output continues to decrease. Patient was initially kept n.p.o. and was started on TPN. Patient ROMIE drain output continued to decreased and TPN was slowly weaned off and patient was started on diet. Patient was advanced from clear liquid to
low residue diet. Patient was tolerating diet without difficulty. Patient underwent repeat CT abdomen pelvis on 07/06 which was negative for abscess. Patient was recommended to continue draining ROMIE drain with flush. Patient will follow-up
outpatient with Dr. Tyson. Infectious disease Unasyn was switched to p.o. Augmentin for additional 2 weeks.
Discharge Plan
-
Patient Disposition: Home with Home Care
Discharge Diagnosis/Procedures: Sepsis secondary to intra-abdominal abscess associated with enteritis/small contained perforation with EC fistula
strep anginosus bacteremia 2/2 above
Mild hyponatremia
Condition: Fair
Diet: Low Residue
Activity: With assistance and As tolerated
Driving Restrictions: As prior to admission
Other Services: VN
Activity Restrictions/Additional Instructions:
Wound Care Instructions Skin around IR drain - Clean with saline, no-sting barrier to reddened area. Cut slit in alginate to fit around IR drain and covered with silicone border foam. Change daily and PRN for drainage.
Referrals:
Reginald Gatica PA-C [Family Provider] - in less than 1 week
Mike Tyson MD [Active] - in two weeks
Prescriptions:
New
polyethylene glycol 3350 [HealthyLax] 17 gram Powder In Packet
17 g PO DAILY Qty: 14 0RF
pantoprazole 40 mg Tablet,Delayed Release (Dr/Ec)
40 mg PO DAILY 30 Days Qty: 30 0RF
amoxicillin-pot clavulanate 875-125 mg tablet
1 tab PO Q12H 14 Days Qty: 28 0RF
sodium chloride 0.9 % (flush) Syringe
5 ml intra-catheter DAILY 30 Days Qty: 30 0RF
Rx Instructions:
Please flush Romie drain with 5ml daily
Continued
PreserVision AREDS 1 CAP capsule
1 cap PO BID
elderberry fruit and flower 1 EACH capsule
1 cap PO DAILY
atorvastatin 20 mg Tablet
20 mg PO DAILY
diphenhydramine-acetaminophen [Tylenol PM Extra Strength] 25-500 mg Tablet
2 tab PO DAILYPRN PRN (Reason: mild pain)
cholecalciferol (vitamin D3) 25 mcg (1,000 unit) Tablet
25 mcg PO DAILY
omega 8-tbq-utc-fish oil [Fish Oil] 1,000 mg (120 mg-180 mg) Capsule
1 cap PO BID
hydrocodone-acetaminophen 5-325 mg tablet
1 tab PO Q6H PRN (Reason: severe pain)
Patient Comments:
06/16/2023, pt. filled this medication on 06/15/2023 for 10 tablets according to PDMP.
Discontinued
Flax Seed 1,200 MG Tab
1,200 mg PO DAILY
gabapentin 300 mg Capsule
300 mg PO TID
ZzzQuil 50 mg/30 mL Liquid
50 mg PO HS
benzonatate 100 mg Capsule
200 mg PO TIDPRN PRN (Reason: cough) Qty: 20 0RF
guaifenesin 600 mg tablet extended release 12hr
1,200 mg PO [id number] PRN (Reason: cough)
Discharge Orders:
Discharge Patient (As Directed); Ordered 07/07/23
Ordered By: Flavio Gibbs
--- NOTE | 2023-07-07 11:58 | CM ---
Patient seen at bedside. Patient excited about possible discharge home and family to provide transportation. Patient to be followed at discharge by [facility]. CM will continue to follow for discharge planning needs.
Plan; home with [facility] to follow for drain and wound management
--- NOTE | 2023-07-07 13:52 | W.PN.ID1 ---
Date of Service
Date of Service: July 07, 2023
Today's Communication
Continue antibiotics. Outpatient follow-up with Surgery
Assessment / Plan
Abdominal abscess
� Status post aspiration/drain placement. Cx E. coli, Viridans strep
Strep anginosus bacteremia - GI source
-Rapidly cleared.
Suspected low output ECF (per surgery)
Abdominal pain
Recommendations:
Fever - resolved
Continue Unasyn 3 g IV every 6 hours while inpatient
KEATON drain output decreasing.
Repeat blood cultures neg to date
Surgical notes reviewed, with plan for surgery in approximately 3 weeks.
--> At discharge, transition to oral Augmentin 875 mg twice daily to continue for 2 weeks.
For potential surgery in 3 weeks.
����������������������������������������������������������
Chief Complaint
-: Bacteremia and Other (bowel perforation)
Subjective / Review of Systems
Review of Systems: No Fever and No Chills
Vital Signs / Physical Exam
Vital Signs
Vital Signs
Temp Pulse Resp BP Pulse Ox
97.5 F 73 16 111/89 99
07/07/23 07:00 07/07/23 07:00 07/07/23 07:00 07/07/23 07:00 07/07/23 07:00
Physical Exam
Physical Exam:
Constitutional: No Acute Distress, Comfortable and Non-toxic
Eyes: Sclera Anicteric
Pulmonary: Non Labored
Gastrointestinal: Soft, Non Tender, Non Distended, Normal Bowel Sounds, No Rebound and Other (Anterior KEATON in place with seropurulent drainage.)
Neurological: Awake and Alert
Psychological: Calm
Objective Data
Lab Data
Lab Results
07/07/23 04:01
07/07/23 04:01
PT 15.7 Sec (11.4-14.6) H 06/28/23 10:12
INR 1.22 06/28/23 10:12
Estimated Creat Clear 103 ml/min 07/07/23 04:01
Lactic Acid 0.8 mmol/L (0.7-2.0) 06/27/23 17:28
Total Bilirubin 0.5 mg/dl (0.2-1.3) 07/07/23 04:01
AST 26 U/L (17-59) 07/07/23 04:01
ALT 29 U/L (0-50) 07/07/23 04:01
Alkaline Phosphatase 93 U/L (38-126) 07/07/23 04:01
Most recent labs reviewed.
Micro Results:
06/30/23 12:50 Blood Culture - Final
Blood/Venous No Growth - Final Report
06/30/23 12:32 Blood Culture - Final
Blood/Venous No Growth - Final Report
06/27/23 20:27 Blood Culture - Final
Blood/Venous Streptococcus anginosus
Gram Stain - Final
06/27/23 17:28 Blood Culture - Final
Blood/Venous No Growth - Final Report
06/28/23 18:14 Salmonella/Shigella Culture - Final
Feces/Stool No Salmonella, Shigella, Aeromonas or Plesiomonas species
isolated.
Campylobacter Culture - Final
No Campylobacter species isolated.
Shiga Toxin Test - Final
No E. coli Shiga Toxin 1 or 2 detected.
06/28/23 13:30 Wound Culture - Final
Abscess Escherichia coli
Viridans Streptococcus Group
Gram Stain - Final
06/27/23 20:27 Urine Culture - Final
Urine NO GROWTH
06/27/23 18:20 C. difficile GDH Antigen & Toxins - Final
Feces/Stool Negative for toxigenic C.difficile
Imaging:
06/27/2023 CT abdomen/pelvis with contrast: There is a complex rim-enhancing collection containing fluid and gas in the anterior mid abdomen concerning for intra-abdominal abscess. There is no enteric contrast material within the collection, no free
air elsewhere in the abdomen. Please see full dictation for additional detail.
Care Review
Plan reviewed with: Physician (Gen. Surgery)
--- NOTE | 2023-07-07 14:19 | PTCARENOTE ---
Discussed discharge information with Pt and at bedside. PICC removed by IV team. spoke with CM regarding VN. Belongings from room taken. Transport wheeled Pt to exit. to drive Pt home.
== END 2023-07-07 14:45 | disposition home health service (06) | DRG 871 ==
LOC: 3 WEST ACU 23:30
PROVIDERS: Emergency Medicine; Internal Medicine; Radiology Vascular & Interventional Radiology; Registered Nurse; Surgery; ADMITTING PHYSICIAN Hospitalist; ATTENDING PHYSICIAN Hospitalist; CONSULT PHYSICIAN Surgery; EMERGENCY PHYSICIAN Emergency Medicine; FAMILY PHYSICIAN Physician Assistant Medical; OTHER PHYSICIAN Internal Medicine Infectious Disease
PROC: 0W9J30Z Drainage of Pelvic Cavity with Drainage Device, Percutaneous Approach (ICD-10-PCS; 2023-06-28)
DX: A40.8 Other streptococcal sepsis (principal); K63.1 Perforation of intestine (nontraumatic); K65.1 Peritoneal abscess; E87.1 Hypo-osmolality and hyponatremia; K63.2 Fistula of intestine; Z66 Do not resuscitate; K52.9 Noninfective gastroenteritis and colitis, unspecified
CPT/HCPCS: 49406; 71045; 71046; 74177; 80048; 80053; 81003; 81015; 82962; 83605; 83735; 84100; 84134; 84478; 85025; 85610; 87040; 87045; 87046; 87070; 87077; 87086; 87149; 87186; 87205; 87324; 87427; 87449; 87811; 99152; 99285; Q9967

== ENCOUNTER → 2023-07-29 12:54 | Outpatient (REF) | payer BC, SELFPAY | LOC: RADI 12:54 | PROVIDERS: ATTENDING PHYSICIAN Surgery | DX: Z46.82 Encounter for fitting and adjustment of non-vascular catheter (principal); K65.1 Peritoneal abscess | CPT/HCPCS: 49424; 76080 ==

== ENCOUNTER 2023-08-12 06:20 | Inpatient (IN) | payer BC, MEDICARE, SELFPAY ==
[2023-08-05 13:27] VITALS: BMI 23.6
--- NOTE | 2023-08-05 16:24 | PTCARENOTE ---
reviewed the abnormal ECG from today; no actions requested.
[2023-08-12] VITALS (11 sets, daily range): BP systolic 121–177; BP diastolic 58–91; BMI 23.6
[2023-08-12] MEDS: NORMOSOL-R 1000 IV ×2 (12:51→19:00)
[2023-08-12] MEDS: TYLENOL 1000 MG PO (12:51)
--- NOTE | 2023-08-12 17:56 | W.IMMPOSTOP ---
Addendum entered and electronically signed by Mike Tyson MD 08/29/23 10:09:
[facility]# [id number]
Original Note:
Surgical Immed Post Op Note
-
Primary Surgeon: Jah
Assisting Surgeon: Kayden
Pre-op Diagnosis: Enterocutaneous fistula
Post-op Diagnosis: Enterocutaneous fistula
Procedure Performed: Exploratory laparotomy, take down of ECF, small bowel resection with primary anastomosis
Anesthesia Type: General
Specimen / Cultures:
1. Small bowel resection
Estimated Blood Loss: 51 cc
Complications: None
Operative Findings:
1. Dense adhesions to midline and intra-loop
2. ECF isolated and locally taken down
3. SBR (25 cm) with stapled [id number] anastomosis
4. 3 small serosal tears, no enterotomies
[2023-08-12] MEDS: DILAUDID 0.25 MG IV ×2 (18:17→18:22)
--- NOTE | 2023-08-12 19:48 | PTCARENOTE ---
patient arrived during change of shift to 2 South via bed from PACU. at bedside, patient drowsy and sleeping. NGT in place to low intermitent suction and singh draining clear yellow urine in place as well. IVF infusing per order. updated
to plan of care.
[2023-08-12] MEDS: ZOSYN 50 IV (20:02)
[2023-08-12] MEDS: CHLORASEPTIC/SORE THROAT SPRAY 1 SPRAY PO (23:39)
[2023-08-12] MEDS: OFIRMEV 100 IV (23:41)
[2023-08-13] MEDS: CHLORASEPTIC/SORE THROAT SPRAY 1 SPRAY PO ×5 (01:40→21:07)
[2023-08-13] MEDS: ZOSYN 50 IV ×4 (01:40→20:43)
[2023-08-13 03:15] VITALS: BP 132/63
[2023-08-13] MEDS: NORMOSOL-R 1000 IV ×2 (04:46→13:27)
[2023-08-13] MEDS: OFIRMEV 100 IV ×3 (05:29→17:33)
[2023-08-13 07:32] VITALS: BP 121/65
[2023-08-13 07:34] LABS: Blood Urea Nitrogen 13 mg/dl (9-20); Calcium 8.3 mg/dl (8.4-10.2); Carbon Dioxide 26 mmol/L (22-30); Chloride 96 mmol/L (98-107); Estimated Creatinine Clearance 106 ml/min; Glucose 113 mg/dl (70-99); Potassium 3.9 mmol/L (3.5-5.1); Sodium 130 mmol/L (135-145); eGFR > 60.00
[2023-08-13] MEDS: ZOFRAN 4 MG IV (08:03)
[2023-08-13] MEDS: DILAUDID 0.5 MG IV ×4 (08:03→21:04)
[2023-08-13 09:36] LABS: Hematocrit 39.7 % (39.0-52.0); Hemoglobin 13.5 g/dL (13.0-18.0); Mean Corpuscular Volume 94.1 fL (80.0-94.0); Mean Platelet Volume 10.1 fL (7.4-10.4); Platelet Count 233 10^3/uL (130-400); Red Blood Cell Count 4.22 10^6/uL (4.70-6.10); Red Cell Dist. Width 13.1 % (11.5-14.5); White Blood Cell Count 7.4 10^3/uL (4.8-10.8)
--- NOTE | 2023-08-13 10:33 | W.PN.GS2 ---
Today's Communication / Plan
-
Continue NPO with NGT
IVF
Assessment / Plan
-
77 yo male presenting for surgical management of ECF now POD #1 ex lap with SBR
AFVSS
Labs stable post op
Mild hyponatremia, suspect d/t mild hypovolemia
Await bowel recovery
--Continue NPO. NGT to LIWS, ice chips for comfort. Benzocaine lozenges prn
--Continue IVF
--Trend labs
--Antiemetics/analgesics prn
--C/w singh catheter, VT in AM
--OOB/Increase activity. IS while awake
--GI ppx with protonix IV
--Lovenox for VTE ppx
Subjective Data
-
Date of Service: August 13, 2023
Patient seen and examined at bedside with Dr. Cruz. Some nausea earlier this am, now relieved. Significant discomfort from NGT. Abdominal pain well managed. No flatus as of yet.
Objective Data
-
Intake and Output
08/12/23 08/13/23 08/14/23
06:59 06:59 06:59
Intake Total 1420 / 1420
Output Total 2225 / 2225
Balance -805 / -805
Intake:
IV fluids (Total) 1000 / 1000
IV piggybacks 300 / 300
Amount instilled into GI Tube ( 120 / 120
Total)
[place] Sump 120 / 120
Output:
Gastrointestinal tube output ( 500 / 500
Total)
[place] Sump 500 / 500
Urine, Singh 1725 / 1725
Vital Signs
Temp Pulse Resp BP Pulse Ox
98.4 F 80 18 121/65 98
08/13/23 07:32 08/13/23 07:32 08/13/23 07:32 08/13/23 07:32 08/13/23 07:32
Lab Results
08/13/23 06:36
08/13/23 06:36
Calcium 8.3 mg/dl (8.4-10.2) L 08/13/23 06:36
Physical Exam
-
NAD, Dry mm
ABD soft, expected tenderness, mild distention, NGT with bilious outputs
Incision with intact Aquacel dressing
[2023-08-13] MEDS: PROTONIX IV 40 MG IV ×2 (10:53)
[2023-08-13] MEDS: ANESTHETIC LOZENGE 1 LOZENGE PO (10:56)
[2023-08-13] MEDS: NSS (PRESERVATIVE FREE) 10 ML IV (10:57)
[2023-08-13 11:29] VITALS: BP 127/59
--- NOTE | 2023-08-13 14:27 | PTCARENOTE ---
Pt voiding in urinal w/o difficulty. Pt assisted x1 to chair, tolerating being OOB. Ab Aquacel c/d/i. Hypoactive BS LLQ, pt states passing gas, no BM. NGT to LIS, greenish brown output continues. PRN IV Dilaudid for Ab pain, throat pain, lozenge and
spray provided, see MAR.
[2023-08-13 15:50] VITALS: BP 118/56
--- NOTE | 2023-08-13 16:00 | CM ---
Patient seen at bedside with significant other also present. Patient sleeping and assessment questions answered by significant other. Patient lives alone in a 2 story home. patient was in and out of the ed several days in a row and finally his PCP
Dr. Gatica called to ED per significant other. Patient has no DME at home and uses the [facility] in [place]. 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 Patient had been discharged home with [facility] per chart but patient significant other did
not think they had seen patient. Patient currently with NG tube. CM will continue to follow for discharge planning needs.
Plan; home with VN; [facility] if available and significant other
[2023-08-13] MEDS: LOVENOX 40 MG SC (17:34)
[2023-08-13 23:05] VITALS: BP 127/56
[2023-08-14] MEDS: NORMOSOL-R 1000 IV ×3 (00:07→23:12)
[2023-08-14] MEDS: OFIRMEV 100 IV ×4 (00:08→23:20)
[2023-08-14] MEDS: ZOSYN 50 IV ×4 (02:46→20:37)
[2023-08-14] MEDS: DILAUDID 0.5 MG IV ×4 (02:46→20:50)
[2023-08-14] MEDS: CHLORASEPTIC/SORE THROAT SPRAY 1 SPRAY PO ×3 (02:47→20:50)
[2023-08-14 05:35] LABS: Hematocrit 37.2 % (39.0-52.0); Hemoglobin 12.8 g/dL (13.0-18.0); Mean Corp Hgb Conc. 34.4 g/dL (33.0-37.0); Mean Corpuscular Hgb 31.9 pg (27.0-31.0); Mean Corpuscular Volume 92.8 fL (80.0-94.0); Mean Platelet Volume 9.7 fL (7.4-10.4); Platelet Count 218 10^3/uL (130-400); Red Blood Cell Count 4.01 10^6/uL (4.70-6.10); Red Cell Dist. Width 13.2 % (11.5-14.5); White Blood Cell Count 5.7 10^3/uL (4.8-10.8)
[2023-08-14 06:02] LABS: Blood Urea Nitrogen 12 mg/dl (9-20); Calcium 8.4 mg/dl (8.4-10.2); Carbon Dioxide 32 mmol/L (22-30); Chloride 96 mmol/L (98-107); Estimated Creatinine Clearance 91 ml/min; Glucose 92 mg/dl (70-99); Magnesium 2.4 mg/dl (1.6-2.3); Potassium 3.9 mmol/L (3.5-5.1); Sodium 133 mmol/L (135-145); eGFR > 60.00
[2023-08-14 07:05] VITALS: BP 125/68
[2023-08-14] MEDS: NSS (PRESERVATIVE FREE) 10 ML IV (08:55)
--- NOTE | 2023-08-14 11:08 | W.PN.GS2 ---
Today's Communication / Plan
-
NGT/NPO/IVF
Assessment / Plan
-
77 yo male presenting for surgical management of ECF now POD #2 ex lap with SBR
AFVSS
Labs stable post op
Hyponatremia improved with IVF
Await bowel recovery
--Continue NPO. NGT to LIWS, ice chips for comfort. Benzocaine lozenges prn
--Continue IVF
--Trend labs
--Antiemetics/analgesics prn, scheduled Ofirmev
--VT today
--OOB/Increase activity. IS while awake
--GI ppx with protonix IV
--Lovenox for VTE ppx
Subjective Data
-
Date of Service: August 14, 2023
Patient seen and examined at bedside with Dr. Cruz. Less discomfort today. Notes congestion with NGT in place. No passage of flatus/stool. No n/v.
Objective Data
-
Intake and Output
08/13/23 08/14/23 08/15/23
06:59 06:59 06:59
Intake Total 1420 / 1420 2780 / 2780
Output Total 2225 / 2225 2925 / 2925
Balance -805 / -805 -145 / -145
Intake:
IV fluids (Total) 1000 / 1000 2100 / 2100
IV piggybacks 300 / 300 500 / 500
Amount instilled into GI Tube ( 120 / 120 180 / 180
Total)
[place] Sump 120 / 120 180 / 180
Output:
Gastrointestinal tube output ( 500 / 500 1100 / 1100
Total)
[place] Sump 500 / 500 1100 / 1100
Urine, Graham 172 / 1725
Urine, Voided 182 / 182
Vital Signs
Temp Pulse Resp BP Pulse Ox
98.5 F 91 16 125/68 97
08/14/23 07:05 08/14/23 07:05 08/14/23 07:05 08/14/23 07:05 08/14/23 08:00
Lab Results
08/14/23 05:16
08/14/23 05:16
Calcium 8.4 mg/dl (8.4-10.2) 08/14/23 05:16
Magnesium 2.4 mg/dl (1.6-2.3) H 08/14/23 05:16
Physical Exam
-
NAD, Ox3
ABD soft, expected tenderness, mild distention, NGT with bilious outputs
Incision with intact Aquacel dressing
[2023-08-14 13:23] VITALS: BMI 23.6
[2023-08-14 15:00] VITALS: BP 121/59
[2023-08-14] MEDS: LOVENOX 40 MG SC (18:08)
[2023-08-14 22:27] VITALS: BP 145/70
[2023-08-14] MEDS: BENADRYL 25 MG IV (23:11)
[2023-08-15] MEDS: ZOSYN 50 IV ×4 (02:03→20:17)
[2023-08-15 05:04] LABS: Hematocrit 35.6 % (39.0-52.0); Hemoglobin 12.1 g/dL (13.0-18.0); Mean Corpuscular Hgb 31.7 pg (27.0-31.0); Mean Corpuscular Volume 93.2 fL (80.0-94.0); Mean Platelet Volume 9.8 fL (7.4-10.4); Platelet Count 212 10^3/uL (130-400); Red Blood Cell Count 3.82 10^6/uL (4.70-6.10); Red Cell Dist. Width 13.1 % (11.5-14.5); White Blood Cell Count 4.7 10^3/uL (4.8-10.8)
[2023-08-15 05:30] LABS: Blood Urea Nitrogen 12 mg/dl (9-20); Calcium 8.5 mg/dl (8.4-10.2); Carbon Dioxide 30 mmol/L (22-30); Chloride 96 mmol/L (98-107); Estimated Creatinine Clearance 91 ml/min; Glucose 73 mg/dl (70-99); Potassium 3.5 mmol/L (3.5-5.1); Sodium 137 mmol/L (135-145); eGFR > 60.00
[2023-08-15] MEDS: OFIRMEV 100 IV ×3 (06:08→18:51)
[2023-08-15 07:00] VITALS: BP 153/82
[2023-08-15] MEDS: PROTONIX IV 40 MG IV (08:03)
[2023-08-15] MEDS: NSS (PRESERVATIVE FREE) 10 ML IV (08:03)
[2023-08-15] MEDS: CHLORASEPTIC/SORE THROAT SPRAY 1 SPRAY PO ×2 (08:04→23:41)
--- NOTE | 2023-08-15 08:33 | W.PN.GS2 ---
Today's Communication / Plan
-
Continue NGT/IVF/NPO
OOB/Increase activity
Assessment / Plan
-
77 yo male presenting for surgical management of ECF now POD #3 ex lap with SBR
AFVSS
Labs stable post op
Hyponatremia resolved
Await bowel recovery
--Continue NPO. NGT to LIWS, ice chips for comfort. Benzocaine lozenges prn
--Continue IVF
--Trend labs
--Antiemetics/analgesics prn, scheduled Ofirmev
--OOB/Increase activity. IS while awake
--GI ppx with Protonix IV
--Lovenox for VTE ppx
Subjective Data
-
Date of Service: August 15, 2023
Patient seen and examined at bedside with Dr. Mccauley. May have passed flatus x1 this am. Denies n/v. Minimal abdominal discomfort. Voiding well.
Objective Data
-
Intake and Output
08/14/23 08/15/23 08/16/23
06:59 06:59 06:59
Intake Total 2780 / 2780 2790 / 2790 90 / 90
Output Total 2925 / 2925 1050 / 1050 550 / 550
Balance -145 / -145 1740 / 1740 -460 / -460
Intake:
IV fluids (Total) 2099
IV piggybacks 500 / 500 600 / 600
Amount instilled into GI Tube ( 180 / 180 90 / 90 90 / 90
Total)
[place] Sump 180 / 180 90 / 90 90 / 90
Output:
Gastrointestinal tube output ( 1100 / 1100 450 / 450 550 / 550
Total)
[place] Sump 1100 / 1100 450 / 450 550 / 550
Urine, Voided 1825 / 1825 600 / 600
Vital Signs
Temp Pulse Resp BP Pulse Ox
98.2 F 90 18 153/82 95
08/15/23 07:00 08/15/23 07:00 08/15/23 07:00 08/15/23 07:00 08/15/23 07:00
Lab Results
08/15/23 04:08
08/15/23 04:08
Calcium 8.5 mg/dl (8.4-10.2) 08/15/23 04:08
Magnesium 2.4 mg/dl (1.6-2.3) H 08/14/23 05:16
Physical Exam
-
NAD, Ox3
ABD soft, expected tenderness, mild distention, NGT with bilious outputs
Incision with intact Aquacel dressing
[2023-08-15] MEDS: NORMOSOL-R 1000 IV (11:08)
[2023-08-15 14:33] VITALS: BP 126/73; PULSE 82
--- NOTE | 2023-08-15 15:03 | CM ---
Post-op Day # 2 small bowel resection. remains NPO, NGT, IV/AB. Therapy recommendation home PT vs no needs. Will continue to follow medical progression.
[2023-08-15 15:10] VITALS: BP 133/62
[2023-08-15] MEDS: LOVENOX 40 MG SC (18:51)
[2023-08-15 19:15] VITALS: BP 131/68
[2023-08-15 23:10] VITALS: BP 139/70
[2023-08-15] MEDS: BENADRYL 25 MG IV (23:34)
[2023-08-16] MEDS: OFIRMEV 100 IV ×2 (01:29→06:06)
[2023-08-16] MEDS: NORMOSOL-R 1000 IV ×2 (01:49→08:05)
[2023-08-16] MEDS: ZOSYN 50 IV ×3 (01:50→14:03)
[2023-08-16] MEDS: CHLORASEPTIC/SORE THROAT SPRAY 1 SPRAY PO (06:08)
[2023-08-16 06:53] LABS: Hemoglobin 12.1 g/dL (13.0-18.0); Mean Corp Hgb Conc. 33.6 g/dL (33.0-37.0); Mean Corpuscular Hgb 31.7 pg (27.0-31.0); Mean Corpuscular Volume 94.2 fL (80.0-94.0); Mean Platelet Volume 9.6 fL (7.4-10.4); Platelet Count 249 10^3/uL (130-400); Red Blood Cell Count 3.82 10^6/uL (4.70-6.10); Red Cell Dist. Width 12.8 % (11.5-14.5)
[2023-08-16 07:16] LABS: Blood Urea Nitrogen 13 mg/dl (9-20); Calcium 8.7 mg/dl (8.4-10.2); Carbon Dioxide 24 mmol/L (22-30); Chloride 100 mmol/L (98-107); Estimated Creatinine Clearance 106 ml/min; Glucose 73 mg/dl (70-99); Potassium 3.4 mmol/L (3.5-5.1); Sodium 138 mmol/L (135-145); eGFR > 60.00
[2023-08-16 07:35] VITALS: BP 141/69
[2023-08-16] MEDS: PROTONIX IV 40 MG IV (08:04)
[2023-08-16] MEDS: NSS (PRESERVATIVE FREE) 10 ML IV (08:04)
--- NOTE | 2023-08-16 09:43 | W.PN.GS2 ---
Today's Communication / Plan
-
--Continue NPO. NGT to LIWS, ice chips for comfort. Benzocaine lozenges prn
--Continue mIVF, replete K, consider TPN if no ROBF in next 48 hours
--CM and PT consults
Assessment / Plan
-
77 yo male presenting for surgical management of ECF now POD #4 ex lap with SBR
AFVSS
Labs stable post op
Hyponatremia resolved, hypokalemia, repleting
Await bowel recovery
--Continue NPO. NGT to JALEN, ice chips for comfort. Benzocaine lozenges prn
--Continue mIVF, consider TPN if no ROBF in next 48 hours
--Trend labs
--Antiemetics/analgesics prn, scheduled Ofirmev
--OOB/Increase activity. IS while awake
--GI ppx with Protonix IV
--Lovenox for VTE ppx
--CM and PT consults
Subjective Data
-
Date of Service: August 16, 2023
No worsening abdominal pain. No nausea or vomiting. Passing minimal flatus, no BM. No fevers. Ambulate. Voiding.
Objective Data
-
Intake and Output
08/15/23 08/16/23 08/17/23
06:59 06:59 06:59
Intake Total 2790 / 2790 2230 / 2230
Output Total 1050 / 1050 3745 / 3745
Balance 1740 / 1740 -1515 / -1515
Intake:
IV fluids (Total) 2099 1750 / 1750
IV piggybacks 600 / 600 300 / 300
Amount instilled into GI Tube ( 90 / 90 180 / 180
Total)
[place] Sump 90 / 90 180 / 180
Output:
Gastrointestinal tube output ( 450 / 450 2019
Total)
[place] Sump 450 / 450 2019
Urine, Voided 600 / 600 1725 / 1725
Vital Signs
Temp Pulse Resp BP Pulse Ox
97.9 F 78 16 141/69 98
08/16/23 07:35 08/16/23 07:35 08/16/23 07:35 08/16/23 07:35 08/16/23 07:35
Lab Results
08/16/23 06:17
08/16/23 06:17
Calcium 8.7 mg/dl (8.4-10.2) 08/16/23 06:17
Magnesium 2.4 mg/dl (1.6-2.3) H 08/14/23 05:16
Physical Exam
-
Gen: NAD
HEENT: bilious output
Abd: soft, NT, minimal distension, non-peritoneal, midline dressing c/d/i
[2023-08-16] MEDS: KCL 160 MEQ IV (10:08)
--- NOTE | 2023-08-16 10:34 | CM ---
Met with patient and spouse in room. Per patient spouse she is very anxious as she is leaving for 2 weeks and the patient if discharged with have no aide during that time. Patient indicated that patient has coverage per his insurance for aides
pending how the script is written. After reviewing PAC Data patient and indicated that they are interested in [facility]. CM will call to liaison and ask her to touch base with patient and family to discuss options. Patient declined any interest
in SNF. Patient currently with NG tube and per patient/spouse uncertain of next steps. CM will continue to follow for discharge planning needs.
Plan; home with VN; patient asking for daily aides at discharge.
--- NOTE | 2023-08-16 10:39 | CM ---
Addendum entered by Aurelia Quijano 08/16/23 12:06:
Referral already [facility] to today[facility] to address requests from sister.
Original Note:
Met with patient and patient sister in room. Per patient sister she is very anxious as she is leaving for 2 weeks and the patient if discharged with have no aide during that time. Patient sister indicated that patient has coverage per his insurance
for aides pending how the script is written. After reviewing PAC Data patient and sister indicated that they are interested in [facility]. CM will call to liaison and ask her to touch base with patient and family to discuss options. Patient declined
any interest in SNF. Patient currently with NG tube and per patient/sister uncertain of next steps. CM will continue to follow for discharge planning needs.
Plan; home with VN; patient asking for daily aides at discharge.
[2023-08-16] MEDS: D5/0.45%NSS with KCL 20 MEQ 1000 IV (12:59)
[2023-08-16 14:18] VITALS: BP 127/67
[2023-08-16] MEDS: D5/0.9% with KCL 20 MEQ 1000 IV (14:38)
[2023-08-16 15:45] VITALS: BP 144/66
--- NOTE | 2023-08-16 16:12 | VNURNOTE ---
Home Health Liaison made call to patient's sister Ellyn to discuss [facility] and request of [employer] 5x week.
Message left at 1300 and called again at 1530.
Long discussion with patient's sister regarding [employer]. [facility] can provide MULTIMED[employer] DEVEL[employer] 1-2x per week for assistance with bathing/shower.
Ellyn would like to have [facility] referral sent with above request MULTIMED[employer] DEVEL[employer] 5x a week.
CM updated.
[facility] referral made non admit.
[2023-08-16] MEDS: LOVENOX 40 MG SC (17:13)
[2023-08-16 19:05] VITALS: BP 147/70
[2023-08-16] MEDS: BENADRYL 25 MG IV (22:32)
[2023-08-16 23:13] VITALS: BP 139/71
[2023-08-17] MEDS: D5/0.9% with KCL 20 MEQ 1000 IV ×3 (00:28→22:13)
[2023-08-17] MEDS: CHLORASEPTIC/SORE THROAT SPRAY 1 SPRAY PO (00:31)
[2023-08-17 05:11] LABS: Hematocrit 34.3 % (39.0-52.0); Hemoglobin 11.5 g/dL (13.0-18.0); Mean Corp Hgb Conc. 33.5 g/dL (33.0-37.0); Mean Corpuscular Hgb 31.1 pg (27.0-31.0); Mean Corpuscular Volume 92.7 fL (80.0-94.0); Mean Platelet Volume 9.4 fL (7.4-10.4); Platelet Count 259 10^3/uL (130-400); Red Cell Dist. Width 12.8 % (11.5-14.5); White Blood Cell Count 3.9 10^3/uL (4.8-10.8)
[2023-08-17 05:41] LABS: Blood Urea Nitrogen 10 mg/dl (9-20); Calcium 8.9 mg/dl (8.4-10.2); Carbon Dioxide 26 mmol/L (22-30); Chloride 104 mmol/L (98-107); Estimated Creatinine Clearance 106 ml/min; Glucose 112 mg/dl (70-99); Potassium 3.5 mmol/L (3.5-5.1); Sodium 141 mmol/L (135-145); eGFR > 60.00
[2023-08-17 07:05] VITALS: BP 151/94
[2023-08-17] MEDS: NSS (PRESERVATIVE FREE) 10 ML IV (08:02)
[2023-08-17] MEDS: PROTONIX IV 40 MG IV (08:02)
[2023-08-17] MEDS: OFIRMEV 100 IV ×2 (09:48→20:32)
--- NOTE | 2023-08-17 11:28 | W.PN.GS2 ---
Today's Communication / Plan
-
-- Awaiting ROBF
-- Ofirmev for non-narcotic pain
-- Nutrition consult with plans to start TPN
Assessment / Plan
-
77 yo male presenting for surgical management of ECF now POD #5 ex lap with SBR
AFVSS
Labs stable post op
Hyponatremia resolved, hypokalemia resolved
Await bowel recovery (expected), will consult nutrition and plan to start TPN within the next 24 hours
--Continue NPO. NGT to LIWS, ice chips for comfort. Benzocaine lozenges prn
--Continue mIVF, consult nutrition and initiate TPN within 24 hours if no ROBF
--Trend labs
--Antiemetics/analgesics prn, Ofirmev
--OOB/Increase activity. IS while awake
--GI ppx with Protonix IV
--Lovenox for VTE ppx
--CM and PT consults
Subjective Data
-
Date of Service: August 17, 2023
Reports feeling improved with 'movement of gas'. Continues to pass small flatus. No BM. No nausea or emesis. No worsening abdominal pain. No fevers. Ambulating.
Objective Data
-
Intake and Output
08/16/23 08/17/23 08/18/23
06:59 06:59 06:59
Intake Total 2230 / 2230 2640 / 2640
Output Total 3745 / 3745 1900 / 1900
Balance -1515 / -1515 740 / 740
Intake:
IV fluids (Total) 1750 / 1750 2200 / 2200
IV piggybacks 300 / 300 260 / 260
Amount instilled into GI Tube ( 180 / 180 180 / 180
Total)
[place] Sump 180 / 180 180 / 180
Output:
Gastrointestinal tube output ( 2019 675 / 675
Total)
[place] Sump 2019 675 / 675
Urine, Voided 1725 / 1725 1225 / 1225
Vital Signs
Temp Pulse Resp BP Pulse Ox
98.3 F 73 18 151/94 96
08/17/23 07:05 08/17/23 07:05 08/17/23 07:05 08/17/23 07:05 08/17/23 07:05
Lab Results
08/17/23 04:34
08/17/23 04:34
Calcium 8.9 mg/dl (8.4-10.2) 08/17/23 04:34
Magnesium 2.4 mg/dl (1.6-2.3) H 08/14/23 05:16
Physical Exam
-
Gen: NAD
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
Abd: soft, mild tenderness, minimal distension, non-peritoneal, dressing c/d/i
--- NOTE | 2023-08-17 11:33 | CM ---
NGT in place to LIWS, Nutritional consult for possible TPN if no return of bowel function within 24 hrs. Sister was under the impression insurance would pay for 5 days a week for GENERAL OPHTHALMOLOGIST. [facility] provides 2 days a week. Georgina from [facility] spoke with
sister and advised that insurance will only pay for 2 days/week for GENERAL OPHTHALMOLOGIST. If family wants 5 days a week they would need to pay privately. Georgina gave sister a list of available GENERAL OPHTHALMOLOGIST agencies. Will continue to follow medical progression.
--- NOTE | 2023-08-17 12:04 | VNURNOTE ---
Call from patient's sister Ellyn, referral sent to [facility] with contact information added as she requested.
[2023-08-17 15:05] VITALS: BP 133/63
[2023-08-17] MEDS: LOVENOX 40 MG SC (17:06)
[2023-08-17] MEDS: BENADRYL 25 MG IV (22:13)
[2023-08-17 23:05] VITALS: BP 135/63
[2023-08-18 07:05] VITALS: BP 144/77
[2023-08-18] MEDS: D5/0.9% with KCL 20 MEQ 1000 IV ×2 (07:32→22:56)
[2023-08-18] MEDS: DILAUDID 0.5 MG IV (07:33)
[2023-08-18] MEDS: NSS (PRESERVATIVE FREE) 10 ML IV (07:36)
--- NOTE | 2023-08-18 07:36 | W.PN.GS2 ---
Today's Communication / Plan
-
--DC NGT, trial of clears
Assessment / Plan
-
77 yo male presenting for surgical management of ECF now POD #6 ex lap with SBR
AFVSS
Labs stable post op
Hyponatremia resolved, hypokalemia resolved
Evidence of ROBF, BM and flatus
--DC NGT, trial of clears
--Continue mIVF
--Trend labs
--Antiemetics/analgesics prn, Ofirmev
--OOB/Increase activity. IS while awake
--GI ppx with Protonix IV
--Lovenox for VTE ppx
--CM and PT consults
Subjective Data
-
Date of Service: August 18, 2023
Tolerated NGT clamped for 12 hours. No increased bloating or abdominal pain. Continues to pass flatus, BM yesterday. No fevers. Ambulating.
Objective Data
-
Intake and Output
08/17/23 08/18/23 08/19/23
06:59 06:59 06:59
Intake Total 2640 / 2640 2660 / 2660
Output Total 1900 / 1900 850 / 850
Balance 740 / 740 1810 / 1810
Intake:
Oral fluids 160 / 160
IV fluids (Total) 2200 / 2200 2400 / 2400
IV piggybacks 260 / 260 100 / 100
Amount instilled into GI Tube ( 180 / 180
Total)
[place] Sump 180 / 180
Output:
Gastrointestinal tube output ( 675 / 675
Total)
[place] Sump 675 / 675
Urine, Voided 1225 / 1225 850 / 850
Other:
Number of approximated MODERATE 1
amounts of urine
Vital Signs
Temp Pulse Resp BP Pulse Ox
98.1 F 66 16 135/63 95
08/17/23 23:05 08/17/23 23:05 08/17/23 23:05 08/17/23 23:05 08/17/23 23:05
Lab Results
08/17/23 04:34
08/17/23 04:34
Calcium 8.9 mg/dl (8.4-10.2) 08/17/23 04:34
Magnesium 2.4 mg/dl (1.6-2.3) H 08/14/23 05:16
Physical Exam
-
Gen: NAD
Abd: soft, minimal tenderness, minimal distension, non-peritoneal, dressing removed, incision c/d/i - no erythema, ecchymosis or drainage
[2023-08-18] MEDS: PROTONIX IV 40 MG IV (07:37)
--- NOTE | 2023-08-18 13:05 | CM ---
NGT d/cd. Started on clear liquids. Ambulating in hallways without difficulty. Therapy signed off. Return of bowel function. Anticipate home with no needs. Will continue to follow for tolerating clear liquids.
[2023-08-18 15:27] VITALS: BP 149/80
[2023-08-18] MEDS: LOVENOX 40 MG SC (17:13)
[2023-08-18] MEDS: BENADRYL 25 MG IV (22:56)
[2023-08-18 23:24] VITALS: BP 131/69
[2023-08-19 07:14] VITALS: BP 135/72
--- NOTE | 2023-08-19 08:48 | W.PN.GS2 ---
Addendum entered and electronically signed by Mike Tyson MD 08/19/23 09:35:
Patient seen and examined. Agree with assessment plan as documented below.
No complaints. Tolerated clears, no nausea or vomiting, no worsening abdominal pain or distention. Passing flatus and BMs. Afebrile.
Gen: NAD
Abd: soft, NT/ND, incision c/d/i - no erythema, ecchymosis or drainage
Patient is a 77 yo M POD #7�ex lap, MALKA, takedown of ECF and SBR
AFVSS
Evidence of ROBF, BM and flatus
--Advance to FLD
--D/c IVF
--Tylenol/Tramadol prn pain
--OOB/Increase activity. IS while awake
--Resume home meds
--GI ppx with Protonix IV
--Lovenox for VTE ppx
--CM and PT consults
Original Note:
Today's Communication / Plan
-
Advance to FLD
Assessment / Plan
-
77 yo male presenting for surgical management of ECF now POD #7 ex lap with SBR
AFVSS
Evidence of ROBF, BM and flatus
--Advance to FLD
--d/c IVF
--Trend labs
--Tylenol/Tramadol prn pain
--OOB/Increase activity. IS while awake
--GI ppx with Protonix IV
--Lovenox for VTE ppx
--CM and PT consults
Subjective Data
-
Date of Service: August 19, 2023
Patient seen and examined at bedside with Dr. Tyson. Denies n/v. Tolerating liquids. Small BM and passing flatus. Minimal incisional discomfort
Objective Data
-
Intake and Output
08/18/23 08/19/23 08/20/23
06:59 06:59 06:59
Intake Total 2660 / 2660 1600 / 1600
Output Total 850 / 850 1774
Balance 1810 / 1810 -175 / -175
Intake:
Oral fluids 160 / 160 1000 / 1000
IV fluids (Total) 2400 / 2400 600 / 600
IV piggybacks 100 / 100
Output:
Urine, Voided 850 / 850 1774
Other:
Number of approximated MODERATE 1 2
amounts of urine
Vital Signs
Temp Pulse Resp BP Pulse Ox
98.1 F 72 16 135/72 97
08/19/23 07:14 08/19/23 07:14 08/19/23 07:14 08/19/23 07:14 08/19/23 07:14
Lab Results
08/17/23 04:34
08/17/23 04:34
Calcium 8.9 mg/dl (8.4-10.2) 08/17/23 04:34
Magnesium 2.4 mg/dl (1.6-2.3) H 08/14/23 05:16
Physical Exam
-
Gen: NAD
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
incision c/d/i - no erythema, ecchymosis or drainage
[2023-08-19] MEDS: PROTONIX IV 40 MG IV (08:49)
[2023-08-19] MEDS: NSS (PRESERVATIVE FREE) 10 ML IV (08:49)
[2023-08-19 11:05] VITALS: BMI 21.7
--- NOTE | 2023-08-19 14:27 | CM ---
Spoke with patient and discussed discharge plan of care which is HH services with [facility]. CM explained process and that VN will call patient to schedule appointment for evaluation. Expressed understanding.
[2023-08-19 15:35] VITALS: BP 121/62
[2023-08-19] MEDS: LOVENOX 40 MG SC (17:57)
[2023-08-19] MEDS: BENADRYL 25 MG IV (20:51)
[2023-08-19 23:45] VITALS: BP 129/63
[2023-08-20 06:10] VITALS: BMI 22.3
[2023-08-20 07:59] VITALS: BP 121/63
[2023-08-20] MEDS: NSS (PRESERVATIVE FREE) 10 ML IV (08:32)
[2023-08-20] MEDS: PROTONIX IV 40 MG IV (08:32)
[2023-08-20] MEDS: LIPITOR 20 MG PO (08:32)
--- NOTE | 2023-08-20 11:05 | CM ---
Patient seen bedside, discussed plan for returning home with [facility] when stable. CM will continue to follow for discharge planning needs.
Plan; home with [facility] when stable.
--- NOTE | 2023-08-20 12:04 | W.PN.GS2 ---
Today's Communication / Plan
-
Advance diet
Assessment / Plan
-
77 yo male presenting for surgical management of ECF now POD #8 ex lap with SBR
AFVSS
Evidence of ROBF, BM and flatus
--Advance to LRD
--Labs in AM
--Tylenol/Tramadol/Dilaudid prn pain
--OOB/Increase activity. IS while awake
--Lovenox for VTE ppx
--OOB/Ambulate
Subjective Data
-
Date of Service: August 20, 2023
Patient seen and examined at bedside with Dr. Douglas. Denies n/v. Tolerating full liquids. Post op discomfort is improving. Passed some gas and loose stool overnight.
Objective Data
-
Intake and Output
08/19/23 08/20/23 08/21/23
06:59 06:59 06:59
Intake Total 1600 / 1600 480 / 480
Output Total 1775 / 1775 2049
Balance -175 / -175 -1570 / -1570
Intake:
Oral fluids 1000 / 1000 480 / 480
IV fluids (Total) 600 / 600
Output:
Urine, Voided 1775 / 1775 2049
Other:
Number of approximated MODERATE 2
amounts of urine
Vital Signs
Temp Pulse Resp BP Pulse Ox
98.1 F 76 16 121/63 97
08/20/23 07:59 08/20/23 07:59 08/20/23 07:59 08/20/23 07:59 08/20/23 07:59
Lab Results
08/17/23 04:34
08/17/23 04:34
Calcium 8.9 mg/dl (8.4-10.2) 08/17/23 04:34
Magnesium 2.4 mg/dl (1.6-2.3) H 08/14/23 05:16
Physical Exam
-
Gen: NAD
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
incision c/d/i - no erythema, ecchymosis or drainage
[2023-08-20 15:58] VITALS: BP 117/65
[2023-08-20] MEDS: LOVENOX 40 MG SC (17:21)
[2023-08-20] MEDS: BENADRYL 25 MG IV (21:02)
[2023-08-20 23:57] VITALS: BP 133/64
[2023-08-21 06:36] LABS: Hematocrit 36.9 % (39.0-52.0); Hemoglobin 12.4 g/dL (13.0-18.0); Mean Corp Hgb Conc. 33.6 g/dL (33.0-37.0); Mean Corpuscular Hgb 31.5 pg (27.0-31.0); Mean Corpuscular Volume 93.7 fL (80.0-94.0); Mean Platelet Volume 9.8 fL (7.4-10.4); Platelet Count 292 10^3/uL (130-400); Red Blood Cell Count 3.94 10^6/uL (4.70-6.10); Red Cell Dist. Width 12.7 % (11.5-14.5); White Blood Cell Count 3.9 10^3/uL (4.8-10.8)
[2023-08-21 07:03] LABS: Blood Urea Nitrogen 16 mg/dl (9-20); Calcium 9.4 mg/dl (8.4-10.2); Carbon Dioxide 28 mmol/L (22-30); Chloride 100 mmol/L (98-107); Estimated Creatinine Clearance 103 ml/min; Glucose 94 mg/dl (70-99); Potassium 4.1 mmol/L (3.5-5.1); Sodium 139 mmol/L (135-145); eGFR > 60.00
[2023-08-21 07:05] VITALS: BP 103/64
[2023-08-21] MEDS: LIPITOR 20 MG PO (07:41)
--- NOTE | 2023-08-21 11:08 | W.PN.CRS1 ---
Today's Communication / Plan
-
continue low residue diet
home likely tomorrow
Assessment/Plan
-
77 yo male presenting for surgical management of ECF now�POD #9�ex lap with SBR
AFVSS
Evidence of ROBF, BM and flatus
--Continue LRD
--Labs are normal
--Tylenol/Tramadol/Dilaudid prn pain
--OOB/Increase activity. IS while awake
--Lovenox for VTE ppx
--Likely discharge tomorrow
Subjective Data
Subjective Data
Date of Service: August 21, 2023
Patient states he feels good. He has bowel movements. His pain is controlled. He has no complaints.
Objective Data
-
Vital Signs
Temp Pulse Resp BP Pulse Ox
97.6 F 66 16 103/64 98
08/21/23 07:05 08/21/23 07:05 08/21/23 07:05 08/21/23 07:05 08/21/23 07:05
Intake & Output
08/20/23 08/21/23 08/22/23
06:59 06:59 06:59
Intake Total 480 / 480 1180 / 1180
Output Total 2049 350 / 350
Balance -1570 / -1570 830 / 830
Intake:
Oral fluids 480 / 480 1180 / 1180
Output:
Urine, Voided 2049 350 / 350
Other:
Number of approximated MODERATE 4
amounts of urine
Lab Results
08/21/23 05:04
08/21/23 05:04
Physical Exam
-
General: No Acute Distress and AOx3
Abdomen: Soft, Non Distended and Non Tender
Skin: Warm and Dry
[2023-08-21 15:05] VITALS: BP 109/60
[2023-08-21] MEDS: LOVENOX 40 MG SC (17:02)
[2023-08-21] MEDS: BENADRYL 25 MG IV (22:22)
[2023-08-21] MEDS: TYLENOL 650 MG PO (22:22)
[2023-08-21 22:57] VITALS: BP 115/61
[2023-08-22 07:05] VITALS: BP 122/66
[2023-08-22] MEDS: LIPITOR 20 MG PO (08:50)
--- NOTE | 2023-08-22 09:02 | W.PN.GS2 ---
Today's Communication / Plan
-
discharge to home
Assessment / Plan
-
77 yo male presenting for surgical management of ECF now POD #10 ex lap with SBR
AFVSS
Tolerating diet, +bowel function
--continue LRD
--OOB/Increase activity. IS while awake
--Lovenox for VTE ppx
--dispo planning
Subjective Data
-
Date of Service: August 22, 2023
Patient seen and examined at bedside with Dr. Philip. [place] n/v. Tolerating diet. Passing flatus, last BM was 2 days ago.
Objective Data
-
Intake and Output
08/21/23 08/22/23 08/23/23
06:59 06:59 06:59
Intake Total 1180 / 1180 1280 / 1280
Output Total 350 / 350 440 / 440
Balance 830 / 830 840 / 840
Intake:
Oral fluids 1180 / 1180 1280 / 1280
Output:
Urine, Voided 350 / 350 440 / 440
Other:
Number of approximated MODERATE 4 3
amounts of urine
Vital Signs
Temp Pulse Resp BP Pulse Ox
97.4 F 71 16 122/66 97
08/22/23 07:05 08/22/23 07:05 08/22/23 07:05 08/22/23 07:05 08/22/23 07:05
Lab Results
08/21/23 05:04
08/21/23 05:04
Calcium 9.4 mg/dl (8.4-10.2) 08/21/23 05:04
Magnesium 2.0 mg/dl (1.6-2.3) 08/21/23 05:04
Physical Exam
-
Gen: NAD
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
incision c/d/i - no erythema, ecchymosis or drainage, glue intact
--- NOTE | 2023-08-22 10:41 | W.DCSUMMARY ---
Discharge Summary
Discharge Data
Date of Admission: 08/12/23
Date of Discharge: 08/22/23
-
Pending Results: No
Hospital Course
Mr Lea is a 77 yo male who initially presented in May of this year with small bowel perforation of undetermined chronicity/etiology and associated contained intra-abdominal fluid collection and enterocutaneous fistula formation initially
managed with IR drain placement and antibiotics who presented for scheduled surgical management. He underwent exploratory laparotomy, lysis of adhesions and takedown of the enterocutaneous fistula with small bowel resection (25cm) which he tolerated
well. He had slow return of bowel function post operatively and was initially maintained with an NGT. This was able to be removed once he was passing flatus and diet was slowly advanced with continued passage of flatus and stools. He was initially
followed by PT and was cleared for return to home. At the time of discharge, post operative discomfort was minimal and narcotic analgesics were no longer being utilized. He was discharged to home with family with outpatient follow up planned in the
coming weeks.
Discharge Plan
-
Patient Disposition: Home (Routine Discharge)
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
Condition: Good
Diet: As tolerated and Low Fiber
Activity: No strenuous activity
Additional Activity: Do not lift more than 15 pounds for the next 4-6 weeks
Driving Restrictions: Wait until comfortable twisting and off narcotics
Bathing Restrictions: OK to Shower
Wound Care: Ok to wash your incisions with soap and water. Avoid scrubbing or picking off the glue.
Activity Restrictions/Additional Instructions:
Call your surgeon if you have worsening pain, nausea with vomiting, or a fever >100.5
Referrals:
Reginald Gatica PA-C [Family Provider] -
Mike Tyson MD [Active] - in two weeks
Prescriptions:
New
acetaminophen [acetaminophen] 325 mg tablet
650 mg PO Q4HPRN PRN (Reason: mild pain) Qty: 1 0RF
polyethylene glycol 3350 [polyethylene glycol 3350] 17 gram powder in packet
17 grams PO DAILYPRN PRN (Reason: constipation) Qty: 1 0RF
Continued
PreserVision AREDS 1 CAP capsule
1 cap PO BID
atorvastatin 20 mg Tablet
20 mg PO DAILY
cholecalciferol (vitamin D3) 25 mcg (1,000 unit) Tablet
25 mcg PO DAILY
omega 6-ofl-xhm-fish oil [Fish Oil] 1,000 mg (120 mg-180 mg) Capsule
1 cap PO BID
gabapentin 300 mg Capsule
300 mg PO BID
Discontinued
sodium chloride 0.9 % (flush) Syringe
5 ml intra-catheter DAILY
Rx Instructions:
Please flush Romie drain with 5ml daily
Discharge Orders:
Discharge Patient (As Directed); Ordered 08/22/23
Ordered By: Barbara Valencia
--- NOTE | 2023-08-22 13:07 | CM ---
Patient has been medically cleared for discharge to home with [facility] services. [facility] notified. Girlfriend to transport home.
== END 2023-08-22 11:50 | disposition home health service (06) | DRG 330 ==
LOC: 2 SOUTH 06:20
PROVIDERS: Registered Nurse; ADMITTING PHYSICIAN Surgery; FAMILY PHYSICIAN Physician Assistant Medical
PROC: 0DN80ZZ Release Small Intestine, Open Approach (ICD-10-PCS; 2023-08-12)
PROC: 0DT80ZZ Resection of Small Intestine, Open Approach (ICD-10-PCS; 2023-08-12)
DX: K63.2 Fistula of intestine (principal); E87.1 Hypo-osmolality and hyponatremia; K66.0 Peritoneal adhesions (postprocedural) (postinfection)
CPT/HCPCS: 88307; 36415; 80048; 83735; 85027; 86850; 86900; 86901; 93005; 97161; 97530

== ENCOUNTER → 2023-11-11 07:51 | Outpatient (REF) | payer BC, SELFPAY | LOC: RAD 07:51 | PROVIDERS: ATTENDING PHYSICIAN Orthopaedic Surgery; FAMILY PHYSICIAN Physician Assistant Medical | DX: M19.011 Primary osteoarthritis, right shoulder (principal) | CPT/HCPCS: 73200 ==

== ENCOUNTER → 2023-12-09 09:55 | Outpatient (REF) | payer BC, SELFPAY | LOC: RCS 09:55 | PROVIDERS: ATTENDING PHYSICIAN Orthopaedic Surgery; FAMILY PHYSICIAN Physician Assistant Medical | DX: Z01.818 Encounter for other preprocedural examination (principal) | CPT/HCPCS: 93005 ==

== ENCOUNTER 2024-06-29 06:25 | Day surgery (SDC) | payer BC, SELFPAY | END 2024-06-29 13:47 | disposition home or self-care (01) | LOC: GI 06:25 | PROVIDERS: ATTENDING PHYSICIAN Internal Medicine Gastroenterology | DX: Z12.11 Encounter for screening for malignant neoplasm of colon (principal); D12.2 Benign neoplasm of ascending colon; K64.8 Other hemorrhoids | CPT/HCPCS: 45385; 88305 ==

== ENCOUNTER → 2024-08-18 08:09 | Outpatient (REF) | payer BC, SELFPAY | LOC: RAD 08:09 | PROVIDERS: ATTENDING PHYSICIAN Orthopaedic Surgery; FAMILY PHYSICIAN Physician Assistant Medical | DX: M19.012 Primary osteoarthritis, left shoulder (principal) | CPT/HCPCS: 73200 ==

== ENCOUNTER → 2024-09-14 08:14 | Outpatient (REF) | payer BC, SELFPAY | LOC: RAD 08:14 | PROVIDERS: ATTENDING PHYSICIAN Physician Assistant Medical | DX: M54.32 Sciatica, left side (principal) | CPT/HCPCS: 72110 ==

== ENCOUNTER → 2024-12-14 09:30 | Outpatient (REF) | payer BC, SELFPAY | LOC: RCS 09:30 | PROVIDERS: ATTENDING PHYSICIAN Orthopaedic Surgery; FAMILY PHYSICIAN Physician Assistant Medical | DX: Z01.818 Encounter for other preprocedural examination (principal) | CPT/HCPCS: 93005 ==

== ENCOUNTER 2025-01-10 18:31 | Emergency (ER) | payer BC, MEDICARE, SELFPAY ==
[2025-01-10 18:46] VITALS: BP 113/54
[2025-01-10 22:01] VITALS: BP 128/67
[2025-01-10 22:02] VITALS: BMI 26.6
[2025-01-10 22:07] VITALS: BP 128/67
--- NOTE | 2025-01-10 23:05 | ED.GENMED ---
History of Present Illness
General
Chief Complaint: Fall
Source: patient
Exam Limitations: none
Time Seen by Provider: 01/10/25 22:37
Nursing documentation reviewed up to this point in time: agreed with
History of Present Illness
History of Present Illness:
79-year-old male presenting to the emergency department today with concerns of a fall. Had a shoulder replacement this morning fell hit his left shoulder and also hit his head. Did not lose consciousness no nausea vomiting numbness weakness or
additional concerns otherwise.
Past History
Past History
ED Past Medical History: Other (Nursing Notes document diverticulosis and arthritis, the patient denies ever having diverticulosis. He states that he had a colonoscopy within the past few months which was normal.)
ED Past Surgical History: Orthopedic and Other (Intestinal resection for perforation. Colon resection with peritonitis 1997. Bowel Obstruction 09/2015)
Social History
Tobacco: Non-smoker
Alcohol: Occasional
Drug: None
Personal:
Living: with family
Employment: Retired
Family History
Family History: Other (Noncontributory)
Review of Systems
Review of Systems
Allergies reviewed?: Yes
All Other Systems: ROS reviewed and negative except as documented in HPI and ROS
Phy Exam
Physical Exam
Physical Exam:
GENERAL: Alert , in no apparent distress
EYE: pupils equal and reactive
NECK: Supple, no significant adenopathy.
ENT: o/p clr, mmm.
CARDIAC: Regular rate and rhythm .
LUNGS: Clear breath sounds bilaterally, no acute respiratory distress, no wheezes/rales/rhonchi
ABDOMEN: Soft, without focal tenderness, no r/g, no cvat
NEUROLOGICAL: Alert and oriented, no focal neuro deficits 5 out of 5 lower extremity strength normal range of motion normal sensation normal range of motion and strength of the right arm
SKIN: Warm and dry, skin intact.
MUSCULOSKELETAL: Left arm in brace. No edema, well perfused.
PSYCH: Normal and appropriate interaction.
Course
Orders/Labs/Results
Orders:
Orders
01/10/25 18:44
CT Head W/o Iv Contrast Urgent
Comment:
Reason For Exam: hit head
Shoulder, Left, Trauma CR [CR Shoulder, Trauma - Left] Urgent
Comment:
Reason For Exam: recent replacment
Vital Signs
Initial and Last Documented VS:
Initial Vital Signs
Temp Pulse Resp Pulse Ox
98.5 F 89 16 96
01/10/25 18:41 01/10/25 18:41 01/10/25 18:41 01/10/25 18:41
Last Documented Vital Signs
Temp Pulse Resp BP Pulse Ox
98.5 F 72 12 128/67 98
01/10/25 18:41 01/10/25 22:07 01/10/25 22:07 01/10/25 22:07 01/10/25 22:31
MDM/Problems Addressed
MDM/Problems Addressed:
79-year-old male presenting to the emergency department today with concerns after a fall. Had recent shoulder replacement this morning. X-ray of the shoulder and CT of the head without emergent findings. Stable for discharge no evidence of any
additional traumatic injury. Return precautions given.
*Pulse Oximetry
SaO2: 98
Oxygen Mode of Delivery: Room air
Patient hypoxic: no (97)
*Critical Care Note
Total Time (30-74mins, 75-104mins- exclusive of procedures): Not Applicable
ED Attending Note
-
Portions of this chart may have been created with voice recognition software.� Occasional wrong word or��sound alike� substitutions may have occurred due to the inherent limitations of voice recognition software.
Discharge Plan
Departure
Patient Disposition: Home (Routine Discharge)
Date of Disposition: 01/10/25
Time of Disposition: 23:05
Patient with high blood pressure during this ER visit?: No
Condition: Good
Covid-19: Not Applicable
Discharge Problem:
Fall, Head injury
Instructions: Preventing falls in adults
Prescriptions:
No Action
PreserVision AREDS 1 CAP capsule
1 cap PO BID
atorvastatin 20 mg Tablet
20 mg PO DAILY
cholecalciferol (vitamin D3) 25 mcg (1,000 unit) Tablet
25 mcg PO DAILY
omega 9-fgh-ygi-fish oil [Fish Oil] 1,000 mg (120 mg-180 mg) Capsule
1 cap PO BID
gabapentin 300 mg Capsule
300 mg PO BID
acetaminophen [acetaminophen] 325 mg tablet
650 mg PO Q4HPRN PRN (Reason: mild pain) Qty: 1 0RF
polyethylene glycol 3350 [polyethylene glycol 3350] 17 gram powder in packet
17 grams PO DAILYPRN PRN (Reason: constipation) Qty: 1 0RF
Referrals:
Reginald Gatica PA-C [Family Provider, Family Practice]
Activity Restrictions/Additional Instructions:
You came to the emergency department today after a fall. Here you had reassuring imaging of your shoulder and head. Please follow closely as an outpatient. Return for any worsening, new or concerning symptoms.
Interventions
Interventions:
*Risk Screen - Suicide Last Done: 01/10/25 18:41
*General Assessment Last Done: 01/10/25 18:41
*Neglect/Abuse Screening Last Done: 01/10/25 18:41
*ED- Fall Risk Assessment Last Done: 01/10/25 18:41
*ED COVID-19 Vaccine History Last Done: 01/10/25 18:41
ED-Musculoskeletal Assessment Last Done: 01/10/25 22:02
ED- Neurological Assessment Last Done: 01/10/25 22:02
ED-Skin Assessment Last Done: 01/10/25 22:02
Discharge Date and Time
Print Language: CROATIAN
== END 2025-01-10 23:10 | disposition home or self-care (01) ==
LOC: EMR 18:31
PROVIDERS: EMERGENCY PHYSICIAN Student in an Organized Health Care Education/Training Program; FAMILY PHYSICIAN Physician Assistant Medical
DX: S09.90XA Unspecified injury of head, initial encounter (principal); M25.512 Pain in left shoulder; W19.XXXA Unspecified fall, initial encounter; Z96.612 Presence of left artificial shoulder joint
CPT/HCPCS: 99284; 70450; 73030

== ENCOUNTER 2025-01-20 21:20 | Emergency (ER) | payer BC, MEDICARE, SELFPAY ==
[2025-01-20 21:21] VITALS: BP 160/83
--- NOTE | 2025-01-21 00:48 | ED.GENMED ---
History of Present Illness
General
Chief Complaint: Fall
Source: patient
Exam Limitations: none
Time Seen by Provider: 01/21/25 00:31
Nursing documentation reviewed up to this point in time: agreed with
History of Present Illness
History of Present Illness:
Note:
CHIEF COMPLAINT(S)
Fall with facial impac
HISTORY OF PRESENT ILLNESS
The patient is an 79-year-old male with pmh of concussion, hlp, stomach ulcers, who reported a fall incident that occurred while descending steps at a relatives house. He did not see an obstacle (an urn) and subsequently tripped, falling directly
onto concrete. Since the incident, the patient has has had right periorbital swelling and ecchymosis, but denies any accompanying pain. Post-fall evaluation included a computed tomography (CT) scan, which revealed no fractures, including around a
previously replaced shoulder joint. The patient reports he walked and drove himself to the facility without assistance. He denies any dizziness or acute pain at present but mentions previous skin abrasions on the knees and a swollen ankle, both of
which were examined via X-ray and showed no significant injuries. He is in no pain currently. Patient is due for his tetanus. He would like to take tylenol at home.
SOCIAL DETERMINANTS AFFECTING HEALTH
The patient lives independently and was able to drive himself to the visit.
IMMUNIZATION HISTORY
The patient is unsure of the timing of his last tetanus vaccination. Due to the nature of his injuries, tetanus vaccination update is recommended.
PHYSICAL EXAM
General: Alert, no acute distress.
Skin: Warm, dry. Evidence of skin abrasions on knees.
Head: Normocephalic, atraumatic.
Neck: Supple, trachea midline. No midline spinal tenderness, full range of motion of the cervical spine. No neck pain reported.
Eye, Nose, Mouth, and Throat: No proptosis, no pain on movement of the right eye, no entrapment. Conjunctiva intact with no evidence of corneal injury.
Cardiovascular: RRR, no murmurs. Normal peripheral perfusion, No edema.
Respiratory: Respirations are non-labored.
Gastrointestinal: Abdomen nondistended and non-tender to palpation.
Back: Normal range of motion, Normal alignment.
Musculoskeletal: Normal ROM, normal strength. Swollen ankle on the right, with no pain with varus and valgus stress negative anterior drawer no joint laxity
Neurological: Alert and oriented to person, place, time, and situation, No focal neurological deficit observed.
Psychiatric: Cooperative, appropriate mood & affect.
PLAN
1. Application of Bacitracin to dress the abrasions and wounds, ensuring proper dressing.
2. Update tetanus vaccination due to tetanus-prone nature of wounds.
3. Referral to follow up with shoulder surgeon.
4. Ensure no driving with an eye patch due to partial vision impairment.
DIFFERENTIAL DIAGNOSIS
The Differential Diagnosis includes, in no particular order and is not limited to:
1. Concussion
2. Orbital fracture
3. Retinal detachment
4. Corneal abrasion
5. Subconjunctival hemorrhage
6. Ocular hypertension
7. Vitreous hemorrhage
8. Hyphema
9. Posterior vitreous detachment
10. Abrasions or contusions of the skin
Disposition:
SUMMARY OF ENCOUNTER
79-year-old male presented to the emergency department following a fall where he tripped on an urn, resulting in impact to his head, shoulder, and ankle. He remained conscious throughout the incident and was able to bear weight immediately afterward
without difficulty. A CT scan showed no acute intracranial abnormality, and X-rays of the shoulder and ankle did not reveal any acute fractures or dislocations. The suspected injuries included an ankle contusion and a forehead contusion. Despite no
evident ocular injury upon examination, it was recommended that the patient follow up with an transport tech due to the trauma and periorbital swelling. Wound care was discussed with the patient to ensure proper healing.
DISPOSITION
Discharge
ASSESSMENT
The patient appears to have sustained an ankle contusion and forehead contusion from the fall, with no acute fractures or intracranial abnormalities. Given the recent trauma to the facial region, further ophthalmological evaluation is recommended.
PLAN
1. Encourage follow-up with an transport tech for a comprehensive eye exam due to periorbital swelling.
2. Discuss wound care management, emphasizing the importance of keeping any abrasions clean and protected.
3. Advise the patient to monitor for any new or worsening symptoms, including changes in vision or the development of severe pain, and to seek further medical evaluation if necessary.
INDEPENDENT REVIEW OF LABS AND INTERPRETATION OF TESTS
- My independent interpretation of the CT scan is that there is no acute intracranial abnormality.
- My independent interpretation of the shoulder and ankle X-rays is that there are no acute fractures or dislocations.
PATIENT EDUCATION AND COUNSELING
The patient was informed about the necessity of good wound care and was advised to seek further evaluation by an transport tech for a thorough eye examination. The importance of monitoring for new symptoms was also discussed.
FOLLOW-UP INSTRUCTIONS
The patient should arrange an appointment with an transport tech promptly for a detailed eye evaluation.
MEDICAL DECISION MAKING
- Number and Complexity of Problems Addressed: Chronic conditions affecting care include suspected ankle contusion and forehead contusion. Differential diagnosis considered includes concussion and ocular injury potential due to the mechanism of
injury.
- Data:
- Category 1: My independent interpretation of the CT scan shows no acute intracranial abnormality. My independent interpretation of shoulder and ankle X-rays shows no acute fractures or dislocations.
- Category 3: Discussion included patient counseling about the importance of ophthalmological follow-up due to facial trauma and potential vision implications.
- Risk: Consideration of Admission/Observation: Escalation of care including admission/observation was considered given the complexity and risk of the patients presenting complaint. However, ultimately I feel the patient is safe for outpatient
management with close follow-up. Reasoning: Work-up reassuring, does not reveal any acute life/organ threatening processes, patient�s symptoms well controlled upon reevaluation, reexamination is reassuring, vitals are stable, patient agreeable with
discharge, reliable for follow-up.
DIAGNOSIS
- Contusion of ankle (ICD-10: S90.31)
- Contusion of forehead (ICD-10: S00.03)
- fall
- head trauma
Past History
Past History
ED Past Medical History: Other (Nursing Notes document diverticulosis and arthritis, the patient denies ever having diverticulosis. He states that he had a colonoscopy within the past few months which was normal.)
ED Past Surgical History: Orthopedic and Other (Intestinal resection for perforation. Colon resection with peritonitis 1997. Bowel Obstruction 09/2015)
Social History
Tobacco: Non-smoker
Alcohol: Occasional
Drug: None
Personal:
Living: with family
Employment: Retired
Family History
Family History: Other (Noncontributory)
Review of Systems
Review of Systems
All Other Systems: ROS reviewed and negative except as documented in HPI and ROS
Phy Exam
Physical Exam
Physical Exam:
see hpi
Course
Orders/Labs/Results
Orders:
Orders
01/20/25 21:27
CR Ankle - Right Min 3 Views * Urgent
Comment:
Reason For Exam: fall, ankle swelling
CR Shoulder, Trauma - Left Urgent
Comment:
Reason For Exam: fall, shoulder pain
01/20/25 21:28
CT Head W/o Iv Contrast Urgent
Comment:
Reason For Exam: Fall, +head strike
01/21/25 01:13
Tetanus/Diphth/Acelpertussis [Adacel] 0.5 ml IM .ONCE ONE
Vital Signs
Initial and Last Documented VS:
Initial Vital Signs
Temp Pulse BP Pulse Ox
98.1 F 94 160/83 100
01/20/25 21:21 01/20/25 21:21 01/20/25 21:21 01/20/25 21:21
Last Documented Vital Signs
Temp Pulse Resp BP Pulse Ox
98.1 F 70 18 121/70 97
01/20/25 21:21 01/21/25 01:32 01/21/25 01:32 01/21/25 01:32 01/21/25 01:32
*Pulse Oximetry
SaO2: 100
Oxygen Mode of Delivery: Room air
Patient hypoxic: no
*Critical Care Note
Total Time (30-74mins, 75-104mins- exclusive of procedures): Not Applicable
ED Attending Note
-
Portions of this chart may have been created with voice recognition software.� Occasional wrong word or��sound alike� substitutions may have occurred due to the inherent limitations of voice recognition software.
Discharge Plan
Departure
Patient Disposition: Home (Routine Discharge)
Date of Disposition: 01/21/25
Time of Disposition: 01:19
Patient with high blood pressure during this ER visit?: Yes
Condition: Good
Discharge Problem:
Fall, Contusion of ankle, right, Head trauma
Instructions: Wound Care (DC), Skin Abrasions (DC), BLOOD PRESSURE
Prescriptions:
No Action
PreserVision AREDS 1 CAP capsule
1 cap PO BID
atorvastatin 20 mg Tablet
20 mg PO DAILY
cholecalciferol (vitamin D3) 25 mcg (1,000 unit) Tablet
25 mcg PO DAILY
omega 0-pjh-hdv-fish oil [Fish Oil] 1,000 mg (120 mg-180 mg) Capsule
1 cap PO BID
gabapentin 300 mg Capsule
300 mg PO BID
acetaminophen [acetaminophen] 325 mg tablet
650 mg PO Q4HPRN PRN (Reason: mild pain) Qty: 1 0RF
polyethylene glycol 3350 [polyethylene glycol 3350] 17 gram powder in packet
17 grams PO DAILYPRN PRN (Reason: constipation) Qty: 1 0RF
Activity Restrictions/Additional Instructions:
As discussed, your CAT scan shows no evidence of acute intracranial bleeding or orbital fracture. Your x-rays shows no evidence of acute fracture or dislocation. Please follow-up with your orthopedist. Please keep your ankle elevated at home, you
can apply ice to affected areas of swelling. You can take Tylenol as needed for pain.
Your tetanus was updated today. Please keep dressings in place for 24 hours. After 24 hours, you can remove dressings and wash wounds with mild soap and water. Please follow-up with your transport tech and your primary care provider. PLEASE
RETURN TO THE ER SHOULD YOU DEVELOP DIZZINESS, LIGHTHEADEDNESS, LOSS OF CONSCIOUSNESS, CHEST PAIN, SHORTNESS OF BREATH, INCREASING PAIN OR SWELLING, INABILITY AMBULATE, OR ANY OTHER SIGNS OR SYMPTOMS WORRISOME TO YOU.
Interventions
Interventions:
*Risk Screen - Suicide Last Done: 01/20/25 21:30
*General Assessment Last Done: 01/21/25 00:00
*Neglect/Abuse Screening Last Done: 01/20/25 21:30
*ED- Fall Risk Assessment Last Done: 01/21/25 00:00
*Nursing Disposition Last Done: 01/21/25 01:37
ED-Musculoskeletal Assessment Last Done: 01/21/25 00:00
ED- Neurological Assessment Last Done: 01/21/25 00:00
ED-Skin Assessment Last Done: 01/21/25 00:00
Discharge Date and Time
Discharge Date/Time: 01/21/25 01:38
Print Language: GEORGIAN
[2025-01-21] MEDS: ADACEL 0.5 ML IM (01:20)
[2025-01-21 01:32] VITALS: BP 121/70
== END 2025-01-21 01:38 | disposition home or self-care (01) ==
LOC: EMR 21:20
PROVIDERS: EMERGENCY PHYSICIAN Student in an Organized Health Care Education/Training Program; FAMILY PHYSICIAN Physician Assistant Medical
DX: S90.01XA Contusion of right ankle, initial encounter (principal); S00.83XA Contusion of other part of head, initial encounter; S80.212A Abrasion, left knee, initial encounter; S80.211A Abrasion, right knee, initial encounter; R22.0 Localized swelling, mass and lump, head; M25.512 Pain in left shoulder; W10.9XXA Fall (on) (from) unspecified stairs and steps, initial encounter; Y92.099 Unspecified place in other non-institutional residence as the place of occurrence of the external cause; Z23 Encounter for immunization; R03.0 Elevated blood-pressure reading, without diagnosis of hypertension; K57.90 Diverticulosis of intestine, part unspecified, without perforation or abscess without bleeding; M19.90 Unspecified osteoarthritis, unspecified site; Z87.820 Personal history of traumatic brain injury; Z87.11 Personal history of peptic ulcer disease; Z98.0 Intestinal bypass and anastomosis status; Z88.6 Allergy status to analgesic agent; Z88.8 Allergy status to other drugs, medicaments and biological substances
CPT/HCPCS: 99284; 90471; 70450; 73030; 73610; 90715

== ENCOUNTER → 2025-02-25 09:07 | Outpatient (REF) | payer BC, SELFPAY | LOC: RCS 09:07 | PROVIDERS: ATTENDING PHYSICIAN Internal Medicine; FAMILY PHYSICIAN Physician Assistant Medical | DX: R94.31 Abnormal electrocardiogram [ECG] [EKG] (principal); I44.0 Atrioventricular block, first degree; I45.4 Nonspecific intraventricular block; R00.2 Palpitations | CPT/HCPCS: 93017 ==

== ENCOUNTER → 2025-03-05 11:47 | Outpatient (REF) | payer MEDICARE, SELFPAY | LOC: HWRCS 11:47 | PROVIDERS: ATTENDING PHYSICIAN Internal Medicine; FAMILY PHYSICIAN Physician Assistant Medical | DX: R94.39 Abnormal result of other cardiovascular function study (principal); I21.29 ST elevation (STEMI) myocardial infarction involving other sites | CPT/HCPCS: 78452; 93017; A9500 ==

== ENCOUNTER → 2025-03-13 16:08 | Outpatient (REF) | payer MEDICARE, SELFPAY | LOC: RCS 16:08 | PROVIDERS: ATTENDING PHYSICIAN Internal Medicine; FAMILY PHYSICIAN Physician Assistant Medical | DX: R94.31 Abnormal electrocardiogram [ECG] [EKG] (principal); I44.0 Atrioventricular block, first degree; I45.4 Nonspecific intraventricular block; R00.2 Palpitations | CPT/HCPCS: 93306 ==